=== PATIENT | male | born 1955 | race Caucasian/White ===

== ENCOUNTER → 2020-07-16 08:43 | Outpatient (BNVA) | payer MEDICARE, SELFPAY | PROVIDERS: PCP Family Medicine; Referring Provider Family Medicine; Visit Provider Family Medicine | DX: I48.19 Other persistent atrial fibrillation (principal); Z51.81 Encounter for therapeutic drug level monitoring; Z79.01 Long term (current) use of anticoagulants | CPT/HCPCS: 85610; 99211 ==

== ENCOUNTER 2020-07-16 19:19 | Outpatient (REF) | payer MEDICARE, SELFPAY | END 2020-07-16 19:20 | disposition home or self-care (01) | LOC: HO.LNP 19:19 | PROVIDERS: Visit Provider Family Medicine | DX: Z79.01 Long term (current) use of anticoagulants (principal) ==

== ENCOUNTER → 2020-07-30 10:40 | Outpatient (BNVA) | payer MEDICARE, SELFPAY | PROVIDERS: PCP Family Medicine; Visit Provider Internal Medicine | DX: I48.19 Other persistent atrial fibrillation (principal); Z51.81 Encounter for therapeutic drug level monitoring; Z79.01 Long term (current) use of anticoagulants | CPT/HCPCS: 85610 ==

== ENCOUNTER → 2020-08-20 10:17 | Outpatient (BNVA) | payer MEDICARE, SELFPAY | PROVIDERS: PCP Family Medicine; Referring Provider Family Medicine; Visit Provider Internal Medicine | DX: I48.19 Other persistent atrial fibrillation (principal); Z51.81 Encounter for therapeutic drug level monitoring; Z79.01 Long term (current) use of anticoagulants | CPT/HCPCS: 85610; 99211 ==

== ENCOUNTER → 2020-08-25 08:07 | Outpatient (BNVA) | payer MEDICARE, SELFPAY | PROVIDERS: PCP Family Medicine; Visit Provider Internal Medicine | DX: I48.19 Other persistent atrial fibrillation (principal); Z51.81 Encounter for therapeutic drug level monitoring; Z79.01 Long term (current) use of anticoagulants | CPT/HCPCS: 85610; 99211 ==

== ENCOUNTER → 2020-08-31 10:25 | Outpatient (BNVA) | payer MEDICARE, SELFPAY | PROVIDERS: PCP Family Medicine; Visit Provider Internal Medicine | DX: I48.19 Other persistent atrial fibrillation (principal); Z51.81 Encounter for therapeutic drug level monitoring; Z79.01 Long term (current) use of anticoagulants | CPT/HCPCS: 85610; 99211 ==

== ENCOUNTER → 2020-09-08 08:53 | Outpatient (BNVA) | payer MEDICARE, SELFPAY | PROVIDERS: PCP Family Medicine; Visit Provider Internal Medicine | DX: I48.19 Other persistent atrial fibrillation (principal); Z51.81 Encounter for therapeutic drug level monitoring; Z79.01 Long term (current) use of anticoagulants | CPT/HCPCS: 85610; 99211 ==

== ENCOUNTER → 2020-09-23 10:01 | Outpatient (BNVA) | payer MEDICARE, SELFPAY | PROVIDERS: PCP Family Medicine; Referring Provider Family Medicine; Visit Provider Internal Medicine Endocrinology, Diabetes & Metabolism | DX: E29.1 Testicular hypofunction (principal); E66.01 Morbid (severe) obesity due to excess calories | CPT/HCPCS: 99212 ==

== ENCOUNTER 2020-09-25 07:58 | Outpatient (REF) | payer MEDICARE, SELFPAY ==
[2020-09-25 08:49] LABS: Hematocrit 43.4 % (42-52); Hemoglobin 14.7 g/dl (14.0-18.0)
[2020-09-25 09:10] LABS: Cholesterol 101 mg/dL; HDL Cholesterol 37 mg/dL; LDL Cholesterol Calculated 51 mg/dl; Triglycerides 65 mg/dL
[2020-09-25 09:33] LABS: Prostate Specific Antigen 0.95 ng/mL (<0.05-4.0)
[2020-09-26 10:27] LABS: Follicle Stimulating Hormone 13.8 mIU/mL (1.6-8.0); Lutenizing Hormone 13.1 mIU/mL (1.6-15.2)
[2020-09-27 17:26] LABS: Sex Hormone Binding Globulin 18 nmol/L (22-77)
[2020-09-30 10:57] LABS: Testosterone, Free 30.1 pg/mL (35.0-155.0); Testosterone, Total 127 ng/dL (250-1100)
[2020-09-30 20:43] LABS: Testosterone-Albumin 3.9 g/dL (3.6-5.1); Testosterone-Bioavailable 43.9 ng/dL (110.0-575.0); Testosterone-Free 24.4 pg/mL (46.0-224.0); Testosterone-SHBG 18 nmol/L (22-77); Testosterone-Total 125 ng/dL (250-1100)
[2020-10-01 23:32] LABS: Estradiol, Ultrasensitive 12 pg/mL
== END 2020-09-25 07:59 | disposition home or self-care (01) ==
LOC: HO.LAB 07:58
PROVIDERS: PCP Family Medicine; Visit Provider Internal Medicine Endocrinology, Diabetes & Metabolism
DX: E29.1 Testicular hypofunction (principal); E66.01 Morbid (severe) obesity due to excess calories
CPT/HCPCS: 36415; 80061; 82670; 83001; 83002; 84153; 84270; 84402; 84403; 85014; 85018

== ENCOUNTER → 2020-09-29 10:22 | Outpatient (BNVA) | payer MEDICARE, SELFPAY | PROVIDERS: PCP Family Medicine; Visit Provider Internal Medicine | DX: I48.19 Other persistent atrial fibrillation (principal); Z51.81 Encounter for therapeutic drug level monitoring; Z79.01 Long term (current) use of anticoagulants | CPT/HCPCS: 85610; 99211 ==

== ENCOUNTER 2020-10-27 08:49 | Outpatient (REF) | payer MEDICARE, SELFPAY ==
[2020-10-27 10:09] LABS: Hemoglobin 14.9 g/dl (14.0-18.0); Mean Corpuscular Hemoglobin 31.2 pg (27.0-33.0); PLT CLUMP 1; Red Blood Count 4.78 X10*6/uL (4.60-5.80); Red Cell Distribution Width 13.5 % (11.0-16.0)
[2020-10-27 10:11] LABS: Estimated Average Glucose 108 mg/dL; Hematocrit 45.7 % (42-52); Hemoglobin A1c % 5.4 %; Mean Corpuscular HGB Conc 32.6 g/dl (31.0-36.0); Mean Corpuscular Volume 95.6 fL (80-98); Mean Platelet Volume 10.8 fL (9.4-12.4); Platelet Count 131 X10*3/uL (160-400); White Blood Count 5.3 X10*3/uL (4.8-10.8)
[2020-10-27 10:50] LABS: Alanine Aminotransferase 24 U/L (0-40); Alkaline Phosphatase 75 U/L (39-117); Anion Gap 13 (12-20); Aspartate Amino Transferase 19 U/L (5-37); Bilirubin Direct 0.3 mg/dL (0.0-0.5); Bilirubin Total 0.6 mg/dL (0.0-1.0); Blood Urea Nitrogen 21 mg/dL (9-16); Calcium 8.9 mg/dL (8.4-10.2); Carbon Dioxide 28 mmol/L (22-29); Chloride 108 mmol/L (96-108); Cholesterol 106 mg/dL; Estimated Glomerular Filt Rate > 60; Glucose Random 107 mg/dL (60-115); HDL Cholesterol 35 mg/dL; LDL Cholesterol Calculated 52 mg/dl; Magnesium 2.1 mg/dL (1.6-2.6); Potassium 4.8 mmol/l (3.3-5.1); Sodium 144 mmol/L (135-145); Total Protein 6.6 g/dL (6.5-8.0); Triglycerides 97 mg/dL
[2020-10-27 11:14] LABS: Thyroid Stimulating Hormone 1.25 uIU/mL (0.32-4.0)
== END 2020-10-27 08:50 | disposition home or self-care (01) ==
LOC: HO.LAB 08:49
PROVIDERS: PCP Family Medicine; Visit Provider Internal Medicine Cardiovascular Disease
DX: I10 Essential (primary) hypertension (principal); I25.10 Atherosclerotic heart disease of native coronary artery without angina pectoris; E78.2 Mixed hyperlipidemia; E66.9 Obesity, unspecified
CPT/HCPCS: 36415; 80048; 80061; 80076; 83036; 83735; 84443; 85027; 85610; 99211

== ENCOUNTER → 2020-11-08 09:55 | Outpatient (BNVA) | payer MEDICARE, SELFPAY | PROVIDERS: PCP Family Medicine; Visit Provider Internal Medicine | DX: E66.01 Morbid (severe) obesity due to excess calories (principal); G47.33 Obstructive sleep apnea (adult) (pediatric) | CPT/HCPCS: 99212 ==

== ENCOUNTER 2020-11-20 07:12 | Outpatient (REF) | payer MEDICARE, SELFPAY ==
[2020-11-20 08:48] LABS: Hematocrit 45.7 % (42-52); Hemoglobin 15.1 g/dl (14.0-18.0)
[2020-11-20 09:22] LABS: PSA,Total (Free>4and<10) 1.57 ng/mL (0.00-4.00)
[2020-11-20 09:37] LABS: Cholesterol 97 mg/dL; HDL Cholesterol 29 mg/dL; LDL Cholesterol Calculated 55 mg/dl; Triglycerides 69 mg/dL
[2020-11-22 18:12] LABS: Sex Hormone Binding Globulin 14 nmol/L (22-77)
[2020-11-25 05:18] LABS: Testosterone-Bioavailable 235.1 ng/dL (110.0-575.0); Testosterone-Free 127.8 pg/mL (46.0-224.0); Testosterone-SHBG 11 nmol/L (22-77); Testosterone-Total 430 ng/dL (250-1100)
[2020-11-28 15:16] LABS: Testosterone, Free 121.5 pg/mL (35.0-155.0); Testosterone, Total 482 ng/dL (250-1100)
== END 2020-11-20 07:13 | disposition home or self-care (01) ==
LOC: HO.LAB 07:12
PROVIDERS: PCP Family Medicine; Visit Provider Internal Medicine Endocrinology, Diabetes & Metabolism
DX: E29.1 Testicular hypofunction (principal); Z12.5 Encounter for screening for malignant neoplasm of prostate
CPT/HCPCS: 36415; 80061; 84153; 84270; 84402; 84403; 85014; 85018

== ENCOUNTER → 2020-11-24 10:06 | Outpatient (BNVA) | payer MEDICARE, SELFPAY | PROVIDERS: PCP Family Medicine; Visit Provider Internal Medicine | DX: I48.19 Other persistent atrial fibrillation (principal); Z51.81 Encounter for therapeutic drug level monitoring; Z79.01 Long term (current) use of anticoagulants | CPT/HCPCS: 85610; 99211 ==

== ENCOUNTER → 2020-12-03 14:21 | Outpatient (BNVA) | payer MEDICARE, SELFPAY | PROVIDERS: PCP Family Medicine; Visit Provider Physician Assistant | DX: E66.01 Morbid (severe) obesity due to excess calories (principal); Z68.44 Body mass index [BMI] 60.0-69.9, adult | CPT/HCPCS: 99212 ==

== ENCOUNTER → 2020-12-22 10:02 | Outpatient (BNVA) | payer MEDICARE, SELFPAY | PROVIDERS: PCP Family Medicine; Visit Provider Internal Medicine | DX: I48.19 Other persistent atrial fibrillation (principal); Z51.81 Encounter for therapeutic drug level monitoring; Z79.01 Long term (current) use of anticoagulants | CPT/HCPCS: 85610; 99211 ==

== ENCOUNTER 2021-01-14 08:05 | Outpatient (REF) | payer MEDICARE, SELFPAY ==
[2021-01-14 11:02] LABS: Hematocrit 47.1 % (42-52)
[2021-01-14 11:04] LABS: Hemoglobin 15.4 g/dl (14.0-18.0)
[2021-01-14 11:26] LABS: TSH reflex Free T4 1.51 uIU/mL (0.32-4.0)
[2021-01-14 11:31] LABS: Alanine Aminotransferase 25 U/L (0-40); Albumin Level 4.1 g/dL (3.5-5.0); Alkaline Phosphatase 70 U/L (39-117); Anion Gap 14 (12-20); Aspartate Amino Transferase 20 U/L (5-37); Bilirubin Total 0.4 mg/dL (0.0-1.0); Blood Urea Nitrogen 21 mg/dL (9-16); Carbon Dioxide 26 mmol/L (22-29); Chloride 107 mmol/L (96-108); Cholesterol 108 mg/dL; Estimated Glomerular Filt Rate > 60; Glucose Fasting 96 mg/dL (60-99); HDL Cholesterol 35 mg/dL; LDL Cholesterol Calculated 55 mg/dl; Potassium 4.9 mmol/L (3.3-5.1); Sodium 142 mmol/L (135-145); Total Protein 6.9 g/dL (6.5-8.0); Triglycerides 91 mg/dL
[2021-01-14 11:58] LABS: Creatinine Urine 164.19 mg/dL; Microalbum/Creatinine Ratio Ur 147.3 ug/mg cr
[2021-01-15 05:32] LABS: Sex Hormone Binding Globulin 18 nmol/L (22-77)
[2021-01-20 10:12] LABS: Testosterone-Albumin 4.2 g/dL (3.6-5.1); Testosterone-Bioavailable 109.9 ng/dL (110.0-575.0); Testosterone-Free 57.1 pg/mL (46.0-224.0); Testosterone-SHBG 19 nmol/L (22-77); Testosterone-Total 291 ng/dL (250-1100)
[2021-01-20 15:27] LABS: Testosterone, Free 56.4 pg/mL (35.0-155.0); Testosterone, Total 294 ng/dL (250-1100)
== END 2021-01-14 08:06 | disposition home or self-care (01) ==
LOC: HO.WFDLDS 08:05
PROVIDERS: Internal Medicine Endocrinology, Diabetes & Metabolism; Visit Provider Family Medicine
DX: Z00.00 Encounter for general adult medical examination without abnormal findings (principal); E29.1 Testicular hypofunction; I10 Essential (primary) hypertension
CPT/HCPCS: 36415; 80053; 80061; 82043; 84270; 84402; 84403; 84443; 85014; 85018

== ENCOUNTER → 2021-01-19 09:58 | Outpatient (BNVA) | payer MEDICARE, SELFPAY | PROVIDERS: PCP Family Medicine; Visit Provider Internal Medicine | DX: I48.19 Other persistent atrial fibrillation (principal); Z51.81 Encounter for therapeutic drug level monitoring; Z79.01 Long term (current) use of anticoagulants | CPT/HCPCS: 85610; 99211 ==

== ENCOUNTER → 2021-01-27 10:01 | Outpatient (BNVA) | payer MEDICARE, SELFPAY | PROVIDERS: PCP Family Medicine; Visit Provider Internal Medicine Endocrinology, Diabetes & Metabolism | DX: E29.1 Testicular hypofunction (principal); E66.01 Morbid (severe) obesity due to excess calories | CPT/HCPCS: 99212 ==

== ENCOUNTER → 2021-02-16 10:23 | Outpatient (BNVA) | payer MEDICARE, SELFPAY | PROVIDERS: PCP Family Medicine; Visit Provider Internal Medicine | DX: I48.19 Other persistent atrial fibrillation (principal); Z51.81 Encounter for therapeutic drug level monitoring; Z79.01 Long term (current) use of anticoagulants | CPT/HCPCS: 85610; 99211 ==

== ENCOUNTER → 2021-02-24 10:10 | Outpatient (BNVA) | payer MEDICARE, SELFPAY | PROVIDERS: PCP Family Medicine; Visit Provider Internal Medicine | DX: I48.19 Other persistent atrial fibrillation (principal); Z51.81 Encounter for therapeutic drug level monitoring; Z79.01 Long term (current) use of anticoagulants | CPT/HCPCS: 85610; 99211 ==

== ENCOUNTER → 2021-03-23 10:10 | Outpatient (BNVA) | payer MEDICARE, SELFPAY | PROVIDERS: PCP Family Medicine; Visit Provider Internal Medicine | DX: I48.19 Other persistent atrial fibrillation (principal); Z51.81 Encounter for therapeutic drug level monitoring; Z79.01 Long term (current) use of anticoagulants | CPT/HCPCS: 85610; 99211 ==

== ENCOUNTER 2021-04-01 07:56 | Outpatient (REF) | payer MEDICARE, SELFPAY ==
[2021-04-04 21:37] LABS: Sex Hormone Binding Globulin 12 nmol/L (22-77)
[2021-04-06 17:16] LABS: Testosterone, Free 143.3 pg/mL (35.0-155.0); Testosterone, Total 578 ng/dL (250-1100)
[2021-04-12 10:52] LABS: Testosterone-Albumin 4.1 g/dL (3.6-5.1); Testosterone-Bioavailable 312.7 ng/dL (110.0-575.0); Testosterone-Free 166.1 pg/mL (46.0-224.0); Testosterone-SHBG 16 nmol/L (22-77); Testosterone-Total 650 ng/dL (250-1100)
== END 2021-04-01 07:57 | disposition home or self-care (01) ==
LOC: HO.WFDLDS 07:56
PROVIDERS: Visit Provider Internal Medicine Endocrinology, Diabetes & Metabolism
DX: E29.1 Testicular hypofunction (principal)
CPT/HCPCS: 36415; 84270; 84402; 84403

== ENCOUNTER → 2021-04-11 07:34 | Outpatient (BNVA) | payer MEDICARE, SELFPAY | PROVIDERS: PCP Family Medicine; Visit Provider Physician Assistant | DX: Z12.11 Encounter for screening for malignant neoplasm of colon (principal); Z79.01 Long term (current) use of anticoagulants | CPT/HCPCS: 99202 ==

== ENCOUNTER → 2021-04-20 08:06 | Outpatient (BNVA) | payer MEDICARE, SELFPAY | PROVIDERS: PCP Family Medicine; Visit Provider Internal Medicine | DX: I48.19 Other persistent atrial fibrillation (principal); Z51.81 Encounter for therapeutic drug level monitoring; Z79.01 Long term (current) use of anticoagulants | CPT/HCPCS: 85610; 99211 ==

== ENCOUNTER → 2021-05-02 11:20 | Outpatient (BNVA) | payer MEDICARE, SELFPAY | PROVIDERS: Visit Provider Internal Medicine Endocrinology, Diabetes & Metabolism | DX: E29.1 Testicular hypofunction (principal); E66.01 Morbid (severe) obesity due to excess calories; Z68.44 Body mass index [BMI] 60.0-69.9, adult | CPT/HCPCS: 99212 ==

== ENCOUNTER → 2021-05-04 08:16 | Outpatient (BNVA) | payer MEDICARE, SELFPAY | PROVIDERS: PCP Family Medicine; Visit Provider Internal Medicine | DX: I48.0 Paroxysmal atrial fibrillation (principal); Z51.81 Encounter for therapeutic drug level monitoring; Z79.01 Long term (current) use of anticoagulants | CPT/HCPCS: 85610; 99211 ==

== ENCOUNTER → 2021-05-10 09:07 | Outpatient (BNVA) | payer MEDICARE, SELFPAY | PROVIDERS: PCP Family Medicine; Visit Provider Internal Medicine | DX: G47.33 Obstructive sleep apnea (adult) (pediatric) (principal); E66.01 Morbid (severe) obesity due to excess calories; Z68.44 Body mass index [BMI] 60.0-69.9, adult | CPT/HCPCS: 99212 ==

== ENCOUNTER → 2021-05-23 13:45 | Outpatient (BNVA) | payer MEDICARE, SELFPAY | PROVIDERS: PCP Family Medicine | DX: S39.013A Strain of muscle, fascia and tendon of pelvis, initial encounter (principal) | CPT/HCPCS: 99202 ==

== ENCOUNTER → 2021-05-25 08:15 | Outpatient (BNVA) | payer MEDICARE, SELFPAY | PROVIDERS: PCP Family Medicine; Visit Provider Internal Medicine | DX: I48.0 Paroxysmal atrial fibrillation (principal); Z51.81 Encounter for therapeutic drug level monitoring; Z79.01 Long term (current) use of anticoagulants | CPT/HCPCS: 85610; 99211 ==

== ENCOUNTER → 2021-06-14 10:05 | Outpatient (BNVA) | payer MEDICARE, SELFPAY | PROVIDERS: PCP Family Medicine; Visit Provider Physician Assistant | CPT/HCPCS: Q3014 ==

== ENCOUNTER 2021-06-22 10:06 | Outpatient (REF) | payer MEDICARE, SELFPAY ==
[2021-06-22 10:57] LABS: INTERNATIONAL NORM RATIO 4.8 (0.9-1.1)
== END 2021-06-22 10:07 | disposition home or self-care (01) ==
LOC: HO.LAB 10:06
PROVIDERS: PCP Family Medicine; Visit Provider Internal Medicine
DX: I48.0 Paroxysmal atrial fibrillation (principal); Z51.81 Encounter for therapeutic drug level monitoring; Z79.01 Long term (current) use of anticoagulants
CPT/HCPCS: 36415; 85610; 99212

== ENCOUNTER → 2021-06-27 09:13 | Outpatient (BNVA) | payer MEDICARE, SELFPAY | PROVIDERS: PCP Family Medicine; Visit Provider Internal Medicine | DX: I48.0 Paroxysmal atrial fibrillation (principal); Z51.81 Encounter for therapeutic drug level monitoring; Z79.01 Long term (current) use of anticoagulants | CPT/HCPCS: 85610; 99211 ==

== ENCOUNTER → 2021-06-30 09:08 | Outpatient (BNVA) | payer MEDICARE, SELFPAY | PROVIDERS: PCP Family Medicine; Visit Provider Internal Medicine | DX: I48.0 Paroxysmal atrial fibrillation (principal); Z51.81 Encounter for therapeutic drug level monitoring; Z79.01 Long term (current) use of anticoagulants | CPT/HCPCS: 85610; 99211 ==

== ENCOUNTER → 2021-07-07 09:18 | Outpatient (BNVA) | payer MEDICARE, SELFPAY | PROVIDERS: PCP Family Medicine; Visit Provider Internal Medicine | DX: I48.0 Paroxysmal atrial fibrillation (principal); Z51.81 Encounter for therapeutic drug level monitoring; Z79.01 Long term (current) use of anticoagulants | CPT/HCPCS: 85610; 99211 ==

== ENCOUNTER → 2021-07-22 10:16 | Outpatient (BNVA) | payer MEDICARE, SELFPAY | PROVIDERS: PCP Family Medicine; Visit Provider Internal Medicine | DX: I48.0 Paroxysmal atrial fibrillation (principal); Z51.81 Encounter for therapeutic drug level monitoring; Z79.01 Long term (current) use of anticoagulants | CPT/HCPCS: 85610; 99211 ==

== ENCOUNTER → 2021-07-27 10:13 | Outpatient (BNVA) | payer MEDICARE, SELFPAY | PROVIDERS: PCP Family Medicine; Visit Provider Internal Medicine | DX: I48.0 Paroxysmal atrial fibrillation (principal); Z51.81 Encounter for therapeutic drug level monitoring; Z79.01 Long term (current) use of anticoagulants | CPT/HCPCS: 85610; 99211 ==

== ENCOUNTER → 2021-08-03 10:46 | Outpatient (BNVA) | payer MEDICARE, SELFPAY | PROVIDERS: PCP Family Medicine; Visit Provider Internal Medicine | DX: I48.0 Paroxysmal atrial fibrillation (principal); Z51.81 Encounter for therapeutic drug level monitoring; Z79.01 Long term (current) use of anticoagulants | CPT/HCPCS: 85610; 99211 ==

== ENCOUNTER → 2021-08-10 10:29 | Outpatient (BNVA) | payer MEDICARE, SELFPAY | PROVIDERS: PCP Family Medicine; Visit Provider Internal Medicine | DX: I48.0 Paroxysmal atrial fibrillation (principal); Z51.81 Encounter for therapeutic drug level monitoring; Z79.01 Long term (current) use of anticoagulants | CPT/HCPCS: 85610; 99211 ==

== ENCOUNTER → 2021-08-22 10:05 | Outpatient (BNVA) | payer MEDICARE, SELFPAY | PROVIDERS: PCP Family Medicine; Visit Provider Internal Medicine | DX: I48.0 Paroxysmal atrial fibrillation (principal); Z51.81 Encounter for therapeutic drug level monitoring; Z79.01 Long term (current) use of anticoagulants | CPT/HCPCS: 85610; 99211 ==

== ENCOUNTER → 2021-08-29 10:20 | Outpatient (BNVA) | payer MEDICARE, SELFPAY | PROVIDERS: PCP Family Medicine; Visit Provider Internal Medicine | DX: I48.0 Paroxysmal atrial fibrillation (principal); Z51.81 Encounter for therapeutic drug level monitoring; Z79.01 Long term (current) use of anticoagulants | CPT/HCPCS: 85610; 99211 ==

== ENCOUNTER → 2021-09-05 10:25 | Outpatient (BNVA) | payer MEDICARE, SELFPAY | PROVIDERS: PCP Family Medicine; Visit Provider Internal Medicine | DX: I48.0 Paroxysmal atrial fibrillation (principal); Z51.81 Encounter for therapeutic drug level monitoring; Z79.01 Long term (current) use of anticoagulants | CPT/HCPCS: 85610; 99211 ==

== ENCOUNTER → 2021-09-12 10:49 | Outpatient (BNVA) | payer MEDICARE, SELFPAY | PROVIDERS: PCP Family Medicine; Visit Provider Internal Medicine | DX: I48.0 Paroxysmal atrial fibrillation (principal); Z51.81 Encounter for therapeutic drug level monitoring; Z79.01 Long term (current) use of anticoagulants | CPT/HCPCS: 85610; 99211 ==

== ENCOUNTER 2021-09-19 10:56 | Outpatient (REF) | payer MEDICARE, SELFPAY ==
--- NOTE | ~2021-09-19 | US_ITS ---
EXAMINATION: US EXTREMITY NONVASCULAR CLINICAL INFORMATION: Superficial foreign body left thigh. Question broken insulin needle. COMPARISON: None TECHNIQUE: Grayscale and color imaging of the left upper to mid lateral thigh using a linear transducer. FINDINGS: There is a 1.7 cm linear echogenic density in the soft tissues questionable for a foreign body. This is 1 cm deep from the skin surface. This could be confirmed with x-ray. US/US extremity nonvascular IMPRESSION: Question 1 cm in length linear foreign body. Confirmation with x-ray recommended.
== END 2021-09-19 10:57 | disposition home or self-care (01) ==
LOC: HO.HMGCX 10:56
PROVIDERS: Visit Provider Family Medicine
DX: S70.35 Superficial foreign body of thigh (principal)
CPT/HCPCS: 76882

== ENCOUNTER 2021-09-20 09:52 | Outpatient (RCR) | payer MEDICARE, SELFPAY | END 2021-10-12 13:23 | disposition home or self-care (01) | LOC: HO.WCC 09:52 | PROVIDERS: PCP Family Medicine; Visit Provider Physician Assistant | DX: S81.812A Laceration without foreign body, left lower leg, initial encounter (principal); I87.2 Venous insufficiency (chronic) (peripheral); R60.0 Localized edema; E66.01 Morbid (severe) obesity due to excess calories; I48.91 Unspecified atrial fibrillation; I25.10 Atherosclerotic heart disease of native coronary artery without angina pectoris; I10 Essential (primary) hypertension; I25.2 Old myocardial infarction; Z79.01 Long term (current) use of anticoagulants; Z68.44 Body mass index [BMI] 60.0-69.9, adult | CPT/HCPCS: 11042; 97597; 99212 ==

== ENCOUNTER → 2021-09-23 10:28 | Outpatient (BNVA) | payer MEDICARE, SELFPAY | PROVIDERS: PCP Family Medicine; Visit Provider Internal Medicine | DX: I48.0 Paroxysmal atrial fibrillation (principal); Z51.81 Encounter for therapeutic drug level monitoring; Z79.01 Long term (current) use of anticoagulants | CPT/HCPCS: 85610; 99211 ==

== ENCOUNTER → 2021-10-06 08:24 | Outpatient (BNVA) | payer MEDICARE, SELFPAY | PROVIDERS: PCP Family Medicine; Visit Provider Internal Medicine | DX: I48.0 Paroxysmal atrial fibrillation (principal); Z51.81 Encounter for therapeutic drug level monitoring; Z79.01 Long term (current) use of anticoagulants | CPT/HCPCS: 85610; 99211 ==

== ENCOUNTER → 2021-10-12 07:26 | Outpatient (REF) | payer MEDICARE, SELFPAY ==
--- NOTE | ~2021-10-12 | NM_ITS ---
Myocardial perfusion study Indication: Atrial fibrillation with reduced exercise tolerance evaluate for myocardial ischemia Technique: The patient was brought in for a Lexiscan perfusion study on 10/12/2021. Patient performed low-level exercise and was injected 0.4 mg of Lexiscan intravenously. Within a minute of injection, 45 mCi of sestamibi was given intravenously. Images were obtained using the SPECT gamma camera interlaced with the gating device. Images were obtained in supine position. Resting perfusion study was performed on 10/13/2021. Patient was administered 45 mCi of sestamibi intravenously at rest. Images were then obtained in supine position. Images obtained with and without CT attenuation. Total DLP 212mGy-cm. Images were processed with the software and compared side to side in short axis, horizontal long axis and vertical long axis views. Findings: The stress perfusion study showed non attenuated images are suboptimal due to patient's body habitus which shows moderately reduced uptake in the septum, severely reduced uptake in the basal inferior and mildly to moderately reduced uptake in the basal inferior segments as well as mildly reduced uptake in the inferolateral wall of the LV myocardium. Attenuation corrected images show normal uptake of radiotracer in all segments of LV myocardium. The gated study shows normal LV systolic function with calculated LVEF of 41%. LV cavity is normal in size. The gated study shows normal systolic wall thickening and contraction of segments. Resting study shows attenuated corrected images show mildly reduced uptake in the apex of the LV myocardium. Non attenuated images show severely reduced uptake in the inferior, mildly reduced uptake in apical as well as mildly reduced uptake in the inferolateral and septal wall of the LV myocardium.. Gating at rest reveals normal cyst colic wall motion with ejection fraction at 45%. The findings are consistent with no clear reversible defect suggestive of ischemia.. NM/NM domenic perf SPECT rest & str Impression: 1. Myocardial perfusion imaging study shows likely normal myocardial perfusion with no clear ischemia 2. Gated LVEF is 41%, with visually appears to be within normal limits. Correlate with echocardiogram 3. Transient ischemic dilatation not present EKG is nondiagnostic for ischemia
--- NOTE | 2021-10-12 07:33 | CA_ITS ---
Acquisition Time: 2021-10-12 07:54:51 Total Exercise Time: 00:02:00 Test Indications: ABN EKG Medications: SEE CHART Protocol: LEXISCAN Max HR: 166 BPM 107% of Pred: 154 BPM Max BP: 136/070 mmHG Max Work Load: 1.0 METS Pharmacological stress test with Lexiscan injection, while sitting and kicking his legs, without anginal symptoms, with isolated PVC and 2 ventricular cuplets, with normotensive response to injection, with nondiagnostic EKG for ischemia. In recovery he had elevated afib rates that were treated with Aminophylline 75mg IVP to reverse Lexiscan with improvement in heart rate. Nuclear images pending. Test reviewed with Dr Yarbrough. Referred By: Sin Mcdonnell Overread By: AUDI AQUINO
== END ==
LOC: HO.CARD 07:26
PROVIDERS: PCP Family Medicine; Visit Provider Family Medicine
DX: I48.0 Paroxysmal atrial fibrillation (principal)
CPT/HCPCS: 78452; 93017; A9500; J0280; J2785

== ENCOUNTER 2021-10-20 10:20 | Outpatient (REF) | payer MEDICARE, SELFPAY ==
--- NOTE | ~2021-10-20 | XR_ITS ---
EXAMINATION: XR FEMUR, LEFT CLINICAL INFORMATION: Superficial foreign body left thigh. COMPARISON: None TECHNIQUE: AP and lateral views of the left femur were obtained. FINDINGS: The left femur is intact with no bony abnormality. No soft tissue abnormality or radiopaque foreign body is seen along the left thigh. Mild loss of patellofemoral joint space with superior patellar spurring is noted. XR/XR femur LT 2V IMPRESSION: Unremarkable left femur exam. No radiopaque foreign body seen in the left thigh.
== END 2021-10-20 10:21 | disposition home or self-care (01) ==
LOC: HO.XRAY 10:20
PROVIDERS: PCP Family Medicine; Referring Provider Family Medicine; Visit Provider Surgery
DX: I48.0 Paroxysmal atrial fibrillation (principal); S70.35 Superficial foreign body of thigh; Z51.81 Encounter for therapeutic drug level monitoring; Z79.01 Long term (current) use of anticoagulants
CPT/HCPCS: 73552; 85610; 99202; 99211

== ENCOUNTER → 2021-10-31 08:25 | Outpatient (BNVA) | payer MEDICARE, SELFPAY | PROVIDERS: PCP Family Medicine; Visit Provider Internal Medicine | DX: I48.0 Paroxysmal atrial fibrillation (principal); Z51.81 Encounter for therapeutic drug level monitoring; Z79.01 Long term (current) use of anticoagulants | CPT/HCPCS: 85610; 99211 ==

== ENCOUNTER → 2021-11-08 10:06 | Outpatient (BNVA) | payer MEDICARE, SELFPAY | PROVIDERS: PCP Family Medicine; Visit Provider Internal Medicine | DX: I48.0 Paroxysmal atrial fibrillation (principal); G47.33 Obstructive sleep apnea (adult) (pediatric); J42 Unspecified chronic bronchitis; E66.01 Morbid (severe) obesity due to excess calories; Z51.81 Encounter for therapeutic drug level monitoring; Z79.01 Long term (current) use of anticoagulants; Z79.899 Other long term (current) drug therapy | CPT/HCPCS: 85610; 99211; 99212 ==

== ENCOUNTER → 2021-11-22 10:18 | Outpatient (BNVA) | payer MEDICARE, SELFPAY | PROVIDERS: PCP Family Medicine; Visit Provider Internal Medicine | DX: I48.0 Paroxysmal atrial fibrillation (principal); Z51.81 Encounter for therapeutic drug level monitoring; Z79.01 Long term (current) use of anticoagulants | CPT/HCPCS: 85610; 99211 ==

== ENCOUNTER → 2021-12-06 10:30 | Outpatient (BNVA) | payer MEDICARE, SELFPAY | PROVIDERS: PCP Family Medicine; Referring Provider Family Medicine; Visit Provider Physician Assistant | DX: R19.7 Diarrhea, unspecified (principal); K59.00 Constipation, unspecified; K58.9 Irritable bowel syndrome, unspecified; E66.01 Morbid (severe) obesity due to excess calories; G47.33 Obstructive sleep apnea (adult) (pediatric); Z68.44 Body mass index [BMI] 60.0-69.9, adult; Z98.84 Bariatric surgery status; Z95.5 Presence of coronary angioplasty implant and graft; Z95.0 Presence of cardiac pacemaker; Z79.82 Long term (current) use of aspirin; Z79.01 Long term (current) use of anticoagulants; Z99.89 Dependence on other enabling machines and devices; Z79.899 Other long term (current) drug therapy | CPT/HCPCS: 99212 ==

== ENCOUNTER 2021-12-08 | Outpatient (REF) | payer MEDICARE, SELFPAY | END 2021-12-08 00:01 | disposition home or self-care (01) | LOC: CF | PROVIDERS: Visit Provider Internal Medicine | DX: Z79.01 Long term (current) use of anticoagulants (principal) | CPT/HCPCS: 85610; 99211 ==

== ENCOUNTER → 2021-12-08 08:13 | Outpatient (BNVA) | payer SELFPAY | PROVIDERS: PCP Family Medicine; Visit Provider Internal Medicine | DX: Z02.79 Encounter for issue of other medical certificate (principal) | CPT/HCPCS: 85610; 99211 ==

== ENCOUNTER → 2021-12-14 10:05 | Outpatient (BNVA) | payer MEDICARE, SELFPAY | PROVIDERS: PCP Family Medicine; Visit Provider Internal Medicine | DX: I48.0 Paroxysmal atrial fibrillation (principal); Z51.81 Encounter for therapeutic drug level monitoring; Z79.01 Long term (current) use of anticoagulants | CPT/HCPCS: 85610; 99211 ==

== ENCOUNTER → 2021-12-21 10:50 | Outpatient (BNVA) | payer MEDICARE, SELFPAY | PROVIDERS: PCP Family Medicine; Visit Provider Internal Medicine | DX: I48.0 Paroxysmal atrial fibrillation (principal); Z51.81 Encounter for therapeutic drug level monitoring; Z79.01 Long term (current) use of anticoagulants | CPT/HCPCS: 85610; 99211 ==

== ENCOUNTER → 2021-12-28 10:04 | Outpatient (BNVA) | payer MEDICARE, SELFPAY | PROVIDERS: PCP Family Medicine; Visit Provider Internal Medicine | DX: I48.0 Paroxysmal atrial fibrillation (principal); Z79.01 Long term (current) use of anticoagulants; Z51.81 Encounter for therapeutic drug level monitoring | CPT/HCPCS: 85610; 99211 ==

== ENCOUNTER → 2022-01-11 10:16 | Outpatient (BNVA) | payer MEDICARE, SELFPAY | PROVIDERS: PCP Family Medicine; Visit Provider Internal Medicine | DX: I48.0 Paroxysmal atrial fibrillation (principal); Z51.81 Encounter for therapeutic drug level monitoring; Z79.01 Long term (current) use of anticoagulants | CPT/HCPCS: 85610; 99211 ==

== ENCOUNTER 2022-01-17 10:09 | Outpatient (REF) | payer MEDICARE, SELFPAY ==
--- NOTE | ~2022-01-17 | US_ITS ---
EXAMINATION: US ABDOMEN LIMITED CLINICAL INFORMATION: Periumbilical pain. COMPARISON: Ultrasound abdomen complete with elastography 08/25/2019 and 04/08/2018. TECHNIQUE: Real-time imaging of the periumbilical area. FINDINGS: The periumbilical area was scanned and no abnormality was seen. A hernia could not be identified. An abnormal mass or fluid collection was not seen. US/US abdomen limited IMPRESSION: No abnormality is detected.
== END 2022-01-17 10:10 | disposition home or self-care (01) ==
LOC: HO.US 10:09
PROVIDERS: PCP Family Medicine; Visit Provider Family Medicine
DX: R10.33 Periumbilical pain (principal); K46.9 Unspecified abdominal hernia without obstruction or gangrene
CPT/HCPCS: 76705

== ENCOUNTER → 2022-02-01 07:58 | Outpatient (BNVA) | payer MEDICARE, SELFPAY | PROVIDERS: PCP Family Medicine; Visit Provider Internal Medicine | DX: I48.0 Paroxysmal atrial fibrillation (principal); Z79.01 Long term (current) use of anticoagulants; Z51.81 Encounter for therapeutic drug level monitoring | CPT/HCPCS: 85610; 99211 ==

== ENCOUNTER → 2022-02-03 07:45 | Outpatient (BNVA) | payer MEDICARE, SELFPAY | PROVIDERS: PCP Family Medicine; Visit Provider Internal Medicine Endocrinology, Diabetes & Metabolism | DX: E29.1 Testicular hypofunction (principal) | CPT/HCPCS: 99212 ==

== ENCOUNTER → 2022-02-22 09:58 | Outpatient (BNVA) | payer MEDICARE, SELFPAY | PROVIDERS: PCP Family Medicine; Visit Provider Internal Medicine | DX: I48.0 Paroxysmal atrial fibrillation (principal); Z79.01 Long term (current) use of anticoagulants; Z51.81 Encounter for therapeutic drug level monitoring | CPT/HCPCS: 85610; 99211 ==

== ENCOUNTER → 2022-03-22 10:17 | Outpatient (BNVA) | payer MEDICARE, SELFPAY | PROVIDERS: PCP Family Medicine; Visit Provider Internal Medicine | DX: Z79.01 Long term (current) use of anticoagulants (principal); Z51.81 Encounter for therapeutic drug level monitoring; I48.0 Paroxysmal atrial fibrillation | CPT/HCPCS: 85610; 99211 ==

== ENCOUNTER 2022-04-07 08:01 | Outpatient (REF) | payer MEDICARE, SELFPAY ==
[2022-04-07 11:04] LABS: Hematocrit 54.1 % (42.0-52.0); Hemoglobin 17.7 g/dl (14.0-18.0)
[2022-04-07 11:31] LABS: Prostate Specific Antigen 1.31 ng/mL (<0.05-4.0)
[2022-04-13 21:36] LABS: Testosterone, Total 456 ng/dL (250-1100)
== END 2022-04-07 08:02 | disposition home or self-care (01) ==
LOC: HO.WFDLDS 08:01
PROVIDERS: Visit Provider Internal Medicine Endocrinology, Diabetes & Metabolism
DX: E29.1 Testicular hypofunction (principal); Z12.5 Encounter for screening for malignant neoplasm of prostate
CPT/HCPCS: 36415; 84153; 84402; 84403; 85014; 85018

== ENCOUNTER 2022-04-10 07:49 | Outpatient (REF) | payer MEDICARE, SELFPAY ==
[2022-04-19 07:56] LABS: Testosterone, Free 99.4 pg/mL (35.0-155.0); Testosterone, Total 438 ng/dL (250-1100)
== END 2022-04-10 07:50 | disposition home or self-care (01) ==
LOC: HO.WFDLDS 07:49
PROVIDERS: Visit Provider Internal Medicine Endocrinology, Diabetes & Metabolism
DX: E29.1 Testicular hypofunction (principal)
CPT/HCPCS: 36415; 84402; 84403

== ENCOUNTER → 2022-04-12 10:17 | Outpatient (BNVA) | payer MEDICARE, SELFPAY | PROVIDERS: PCP Family Medicine; Visit Provider Internal Medicine | DX: G47.33 Obstructive sleep apnea (adult) (pediatric) (principal); E66.01 Morbid (severe) obesity due to excess calories; Z68.44 Body mass index [BMI] 60.0-69.9, adult | CPT/HCPCS: 99212 ==

== ENCOUNTER → 2022-04-19 08:01 | Outpatient (BNVA) | payer MEDICARE, BC, SELFPAY | PROVIDERS: PCP Family Medicine; Visit Provider Internal Medicine | DX: I48.0 Paroxysmal atrial fibrillation (principal); Z79.01 Long term (current) use of anticoagulants; Z51.81 Encounter for therapeutic drug level monitoring | CPT/HCPCS: 85610; 99211 ==

== ENCOUNTER → 2022-05-17 08:04 | Outpatient (BNVA) | payer MEDICARE, BC, SELFPAY | PROVIDERS: PCP Family Medicine; Visit Provider Internal Medicine | DX: I48.0 Paroxysmal atrial fibrillation (principal); Z51.81 Encounter for therapeutic drug level monitoring; Z79.01 Long term (current) use of anticoagulants | CPT/HCPCS: 85610; 99211 ==

== ENCOUNTER 2022-06-08 08:50 | Outpatient (REF) | payer MEDICARE, SELFPAY ==
[2022-06-08 11:38] LABS: Estimated Average Glucose 114 mg/dL; Hemoglobin A1c % 5.6 %
[2022-06-08 12:01] LABS: Anion Gap 15 (12-20); Blood Urea Nitrogen 21 mg/dL (9-16); Calcium 9.2 mg/dL (8.4-10.2); Carbon Dioxide 27 mmol/L (22-29); Chloride 103 mmol/L (96-108); Estimated Glomerular Filt Rate 57; Glucose Random 94 mg/dL (60-115); Potassium 4.6 mmol/L (3.3-5.1); Sodium 140 mmol/L (135-145)
== END 2022-06-08 08:51 | disposition home or self-care (01) ==
LOC: HO.WFDLDS 08:50
PROVIDERS: Visit Provider Nurse Practitioner Family
DX: I10 Essential (primary) hypertension (principal); I25.10 Atherosclerotic heart disease of native coronary artery without angina pectoris; I48.21 Permanent atrial fibrillation
CPT/HCPCS: 36415; 80048; 83036

== ENCOUNTER → 2022-06-14 10:06 | Outpatient (BNVA) | payer MEDICARE, SELFPAY | PROVIDERS: PCP Family Medicine; Visit Provider Internal Medicine | DX: I48.0 Paroxysmal atrial fibrillation (principal); Z79.01 Long term (current) use of anticoagulants; Z51.81 Encounter for therapeutic drug level monitoring | CPT/HCPCS: 85610; 99211 ==

== ENCOUNTER → 2022-07-12 10:03 | Outpatient (BNVA) | payer MEDICARE, SELFPAY | PROVIDERS: PCP Family Medicine; Visit Provider Internal Medicine | DX: I48.0 Paroxysmal atrial fibrillation (principal); Z79.01 Long term (current) use of anticoagulants; Z51.81 Encounter for therapeutic drug level monitoring | CPT/HCPCS: 85610; 99211 ==

== ENCOUNTER → 2022-07-26 10:07 | Outpatient (BNVA) | payer MEDICARE, SELFPAY | PROVIDERS: PCP Family Medicine; Visit Provider Internal Medicine | DX: I48.0 Paroxysmal atrial fibrillation (principal); Z79.01 Long term (current) use of anticoagulants; Z51.81 Encounter for therapeutic drug level monitoring | CPT/HCPCS: 85610; 99211 ==

== ENCOUNTER → 2022-08-04 10:54 | Outpatient (BNVA) | payer MEDICARE, BC, SELFPAY | PROVIDERS: PCP Family Medicine; Visit Provider Nurse Practitioner Family | DX: G47.33 Obstructive sleep apnea (adult) (pediatric) (principal); E66.01 Morbid (severe) obesity due to excess calories | CPT/HCPCS: 99202 ==

== ENCOUNTER → 2022-08-09 10:12 | Outpatient (BNVA) | payer MEDICARE, BC, SELFPAY | PROVIDERS: PCP Family Medicine; Visit Provider Internal Medicine | DX: I48.0 Paroxysmal atrial fibrillation (principal); Z79.01 Long term (current) use of anticoagulants; Z51.81 Encounter for therapeutic drug level monitoring | CPT/HCPCS: 85610; 99211 ==

== ENCOUNTER → 2022-08-29 10:21 | Outpatient (BNVA) | payer MEDICARE, BC, SELFPAY | PROVIDERS: PCP Family Medicine; Referring Provider Family Medicine; Visit Provider Physician Assistant | DX: K58.9 Irritable bowel syndrome, unspecified (principal); Z86.010 Personal history of colon polyps | CPT/HCPCS: 99212 ==

== ENCOUNTER → 2022-08-30 10:43 | Outpatient (REF) | payer MEDICARE, SELFPAY | LOC: HO.SL 10:43 | PROVIDERS: PCP Family Medicine; Visit Provider Nurse Practitioner Family | DX: G47.33 Obstructive sleep apnea (adult) (pediatric) (principal); E66.01 Morbid (severe) obesity due to excess calories; I10 Essential (primary) hypertension; I48.0 Paroxysmal atrial fibrillation; Z51.81 Encounter for therapeutic drug level monitoring; Z79.01 Long term (current) use of anticoagulants | CPT/HCPCS: 85610; 95806; 99211 ==

== ENCOUNTER → 2022-09-13 10:47 | Outpatient (BNVA) | payer MEDICARE, SELFPAY | PROVIDERS: PCP Family Medicine; Visit Provider Internal Medicine | DX: I48.0 Paroxysmal atrial fibrillation (principal); Z79.01 Long term (current) use of anticoagulants; Z51.81 Encounter for therapeutic drug level monitoring | CPT/HCPCS: 85610; 99211 ==

== ENCOUNTER → 2022-09-27 10:09 | Outpatient (BNVA) | payer MEDICARE, SELFPAY | PROVIDERS: PCP Family Medicine; Visit Provider Internal Medicine | DX: G47.33 Obstructive sleep apnea (adult) (pediatric) (principal); E66.01 Morbid (severe) obesity due to excess calories; Z68.44 Body mass index [BMI] 60.0-69.9, adult | CPT/HCPCS: 99212 ==

== ENCOUNTER → 2022-10-11 08:07 | Outpatient (BNVA) | payer MEDICARE, SELFPAY | PROVIDERS: PCP Family Medicine; Visit Provider Internal Medicine | DX: I48.0 Paroxysmal atrial fibrillation (principal); Z79.01 Long term (current) use of anticoagulants; Z51.81 Encounter for therapeutic drug level monitoring | CPT/HCPCS: 85610; 99211 ==

== ENCOUNTER → 2022-10-19 10:28 | Outpatient (BNVA) | payer MEDICARE, SELFPAY | PROVIDERS: PCP Family Medicine; Visit Provider Nurse Practitioner Family | DX: G47.33 Obstructive sleep apnea (adult) (pediatric) (principal); I48.0 Paroxysmal atrial fibrillation; E66.01 Morbid (severe) obesity due to excess calories; Z68.44 Body mass index [BMI] 60.0-69.9, adult; Z95.0 Presence of cardiac pacemaker; Z95.5 Presence of coronary angioplasty implant and graft; Z98.84 Bariatric surgery status; Z99.89 Dependence on other enabling machines and devices | CPT/HCPCS: 99212 ==

== ENCOUNTER → 2022-11-09 10:27 | Outpatient (BNVA) | payer MEDICARE, SELFPAY | PROVIDERS: PCP Family Medicine; Visit Provider Internal Medicine | DX: I48.0 Paroxysmal atrial fibrillation (principal); Z79.01 Long term (current) use of anticoagulants; Z51.81 Encounter for therapeutic drug level monitoring | CPT/HCPCS: 85610; 99211 ==

== ENCOUNTER → 2022-12-04 19:30 | Outpatient (REF) | payer MEDICARE, SELFPAY | LOC: HO.SL 19:30 | PROVIDERS: Visit Provider Nurse Practitioner Family | DX: G47.33 Obstructive sleep apnea (adult) (pediatric) (principal) | CPT/HCPCS: 95811 ==

== ENCOUNTER 2022-12-05 08:25 | Outpatient (REF) | payer MEDICARE, SELFPAY ==
[2022-12-05 11:55] LABS: Alanine Aminotransferase 49 U/L (0-40); Albumin Level 3.8 g/dL (3.5-5.0); Alkaline Phosphatase 61 U/L (39-117); Anion Gap 10 (12-20); Aspartate Amino Transferase 31 U/L (5-37); Blood Urea Nitrogen 13 mg/dL (9-16); Calcium 8.7 mg/dL (8.4-10.2); Carbon Dioxide 25 mmol/L (22-29); Chloride 108 mmol/L (96-108); Cholesterol 69 mg/dL; Estimated Glomerular Filt Rate > 60; Glucose Fasting 95 mg/dL (60-99); HDL Cholesterol 22 mg/dL; LDL Cholesterol Calculated 37 mg/dl; Potassium 4.3 mmol/L (3.3-5.1); Sodium 139 mmol/L (135-145); Total Protein 6.2 g/dL (6.5-8.0); Triglycerides 51 mg/dL
[2022-12-05 11:56] LABS: Appearance Urine Clear; Color Urine Yellow; Glucose Urine UA Negative (Negative); Leukocyte Esterase Urine Negative (Negative); Nitrite Urine Negative (Negative); PH 5.5 (5.0-9.0); Urine Blood Negative (Negative); Urine Ketones Negative (Negative); Urine Protein Negative (Neg-Trace)
[2022-12-05 12:02] LABS: Prostate Specific Antigen Scr 1.63 ng/mL (<0.05-4.0); TSH reflex Free T4 1.91 uIU/mL (0.32-4.0)
[2022-12-05 12:24] LABS: Creatinine Urine 153.82 mg/dL; Microalbum/Creatinine Ratio Ur 15.6 ug/mg cr
== END 2022-12-05 08:26 | disposition home or self-care (01) ==
LOC: HO.WFDLDS 08:25
PROVIDERS: Visit Provider Family Medicine
DX: Z00.00 Encounter for general adult medical examination without abnormal findings (principal); Z12.5 Encounter for screening for malignant neoplasm of prostate; I10 Essential (primary) hypertension
CPT/HCPCS: 36415; 80053; 80061; 81003; 82043; 84153; 84443

== ENCOUNTER → 2022-12-07 07:40 | Outpatient (BNVA) | payer SELFPAY | PROVIDERS: PCP Family Medicine; Visit Provider Internal Medicine | DX: Z02.79 Encounter for issue of other medical certificate (principal); I48.0 Paroxysmal atrial fibrillation; Z79.01 Long term (current) use of anticoagulants; Z51.81 Encounter for therapeutic drug level monitoring; G47.33 Obstructive sleep apnea (adult) (pediatric); E66.01 Morbid (severe) obesity due to excess calories; Z68.43 Body mass index [BMI] 50.0-59.9, adult; Z99.89 Dependence on other enabling machines and devices | CPT/HCPCS: 85610; 99211; 99212 ==

== ENCOUNTER → 2023-01-03 10:26 | Outpatient (BNVA) | payer MEDICARE, SELFPAY | PROVIDERS: PCP Family Medicine; Visit Provider Internal Medicine | DX: I48.0 Paroxysmal atrial fibrillation (principal); Z79.01 Long term (current) use of anticoagulants; Z51.81 Encounter for therapeutic drug level monitoring | CPT/HCPCS: 85610; 99211 ==

== ENCOUNTER → 2023-01-24 10:22 | Outpatient (BNVA) | payer MEDICARE, SELFPAY | PROVIDERS: PCP Family Medicine; Visit Provider Internal Medicine | DX: I48.0 Paroxysmal atrial fibrillation (principal); Z51.81 Encounter for therapeutic drug level monitoring; Z79.01 Long term (current) use of anticoagulants | CPT/HCPCS: 85610; 99211 ==

== ENCOUNTER → 2023-01-31 07:52 | Outpatient (BNVA) | payer MEDICARE, SELFPAY | PROVIDERS: PCP Family Medicine; Visit Provider Internal Medicine Endocrinology, Diabetes & Metabolism | DX: E29.1 Testicular hypofunction (principal); E66.01 Morbid (severe) obesity due to excess calories; I48.91 Unspecified atrial fibrillation; I25.10 Atherosclerotic heart disease of native coronary artery without angina pectoris; Z68.44 Body mass index [BMI] 60.0-69.9, adult; Z79.82 Long term (current) use of aspirin; Z79.01 Long term (current) use of anticoagulants; Z95.5 Presence of coronary angioplasty implant and graft | CPT/HCPCS: 99212 ==

== ENCOUNTER → 2023-02-01 10:11 | Outpatient (BNVA) | payer MEDICARE, SELFPAY | PROVIDERS: PCP Family Medicine; Visit Provider Internal Medicine | DX: G47.33 Obstructive sleep apnea (adult) (pediatric) (principal); E66.01 Morbid (severe) obesity due to excess calories; Z68.44 Body mass index [BMI] 60.0-69.9, adult | CPT/HCPCS: 99212 ==

== ENCOUNTER 2023-02-02 08:29 | Outpatient (REF) | payer MEDICARE, SELFPAY ==
[2023-02-02 12:05] LABS: Hematocrit 54.4 % (42.0-52.0); Hemoglobin 17.9 g/dl (14.0-18.0)
[2023-02-08 19:13] LABS: Testosterone, Free 134.8 pg/mL (35.0-155.0); Testosterone, Total 468 ng/dL (250-1100)
== END 2023-02-02 08:30 | disposition home or self-care (01) ==
LOC: HO.WFDLDS 08:29
PROVIDERS: Visit Provider Internal Medicine Endocrinology, Diabetes & Metabolism
DX: E89.1 Postprocedural hypoinsulinemia (principal)
CPT/HCPCS: 36415; 84402; 84403; 85014; 85018

== ENCOUNTER 2023-02-05 10:16 | Outpatient (REF) | payer MEDICARE, SELFPAY ==
[2023-02-05 14:28] LABS: Alanine Aminotransferase 25 U/L (0-40); Albumin Level 3.8 g/dL (3.5-5.0); Alkaline Phosphatase 66 U/L (39-117); Anion Gap 11 (12-20); Aspartate Amino Transferase 23 U/L (5-37); Bilirubin Total 0.8 mg/dL (0.0-1.0); Blood Urea Nitrogen 20 mg/dL (9-16); Calcium 8.7 mg/dL (8.4-10.2); Carbon Dioxide 25 mmol/L (22-29); Chloride 110 mmol/L (96-108); Estimated Glomerular Filt Rate > 60; Glucose Random 79 mg/dL (60-115); Potassium 4.8 mmol/L (3.3-5.1); Sodium 141 mmol/L (135-145); Total Protein 6.3 g/dL (6.5-8.0)
[2023-02-10 17:58] LABS: Testosterone, Free 96.6 pg/mL (35.0-155.0); Testosterone, Total 345 ng/dL (250-1100)
== END 2023-02-05 10:17 | disposition home or self-care (01) ==
LOC: HO.WFDLDS 10:16
PROVIDERS: Internal Medicine Endocrinology, Diabetes & Metabolism; Visit Provider Family Medicine
DX: R74.01 Elevation of levels of liver transaminase levels (principal); E29.1 Testicular hypofunction
CPT/HCPCS: 36415; 80053; 84402; 84403

== ENCOUNTER → 2023-02-07 10:11 | Outpatient (BNVA) | payer MEDICARE, SELFPAY | PROVIDERS: PCP Family Medicine; Visit Provider Internal Medicine | DX: I48.0 Paroxysmal atrial fibrillation (principal); Z79.01 Long term (current) use of anticoagulants; Z51.81 Encounter for therapeutic drug level monitoring | CPT/HCPCS: 85610; 99211 ==

== ENCOUNTER → 2023-03-07 10:05 | Outpatient (BNVA) | payer MEDICARE, SELFPAY | PROVIDERS: PCP Family Medicine; Visit Provider Internal Medicine | DX: I48.0 Paroxysmal atrial fibrillation (principal); Z79.01 Long term (current) use of anticoagulants; Z51.81 Encounter for therapeutic drug level monitoring | CPT/HCPCS: 85610; 99211 ==

== ENCOUNTER 2023-03-22 10:15 | Outpatient (RCR) | payer MEDICARE, SELFPAY | END 2023-04-27 09:33 | disposition home or self-care (01) | LOC: HO.WCC 10:15 | PROVIDERS: PCP Family Medicine; Visit Provider Surgery | DX: Z09 Encounter for follow-up examination after completed treatment for conditions other than malignant neoplasm (principal); I87.301 Chronic venous hypertension (idiopathic) without complications of right lower extremity; I87.302 Chronic venous hypertension (idiopathic) without complications of left lower extremity; Q82.0 Hereditary lymphedema; Z79.01 Long term (current) use of anticoagulants; Z87.2 Personal history of diseases of the skin and subcutaneous tissue | CPT/HCPCS: 11042; 99212 ==

== ENCOUNTER → 2023-04-06 08:04 | Outpatient (BNVA) | payer MEDICARE, SELFPAY | PROVIDERS: PCP Family Medicine; Visit Provider Internal Medicine | DX: I48.0 Paroxysmal atrial fibrillation (principal); Z79.01 Long term (current) use of anticoagulants; Z51.81 Encounter for therapeutic drug level monitoring | CPT/HCPCS: 85610; 99211 ==

== ENCOUNTER 2023-04-25 09:07 | Outpatient (AMB) | payer MEDICARE, SELFPAY ==
[2023-04-25 09:30] LABS: Prothrombin Time Whole Bld POC 29.6 sec (11.1-13.5); ~PT, ~INR - Anti Coag Clinic 2.5 (0.9-1.1)
--- NOTE | 2023-04-25 09:30 | MHC.OFFVISCO ---
Intake Intake Visit Reasons: Anticoagulation Allergies No Known Allergies [No Known Allergies*] Allergy (Verified 04/25/23 09:25) Medication List - Last Reconciled 04/25/23 by Svetlana Dawson RN aspirin (Adult Low Dose Aspirin) 81 mg PO DAILY atorvastatin 80 mg PO DAILY 90 days clobetasol 0.05% 1 appl topical BID 2 weeks docusate sodium (Stool Softener) 100 mg PO DAILY famotidine (Pepcid AC) 20 mg PO BID lisinopril 20 mg PO DAILY methylcellulose (laxative) (Citrucel) 500 mg PO BID metoprolol tartrate 25 mg PO BID peg-electrolyte soln 420 gram 240 mL PO ONCE 1 day syringe with needle (BD Luer-Deyanira Syringe) USE TWICE A WEEK testosterone cypionate 50 mg (0.25 mL) IM QWEEK torsemide 20 mg PO DAILY warfarin 5 mg See Protocol PO DAILY 90 days Nursing Note INR: 2.5 in therapeutic range Medications and supplements reviewed No changes in health, diet, medications, or supplements, Denies any signs and symptoms of bleeding or bruising or clotting. Bleeding, bruising, clotting discussed Nutritional guidance given Dose: 2.5mg x 2, 5mg x 5 pt may have taken a full tab last night, will take half tab today F/U INR: pt req 3 weeks Patient verbalizes understanding of instructions given Anti-Coag Initial Assessment Social Hx Patient Tobacco Use Status: Never used Tobacco alcohol intake: never Coding Level of Care Code Est Patient Level 1 Diagnoses Current use of anticoagulant therapy Z79.01 Assessment & Plan Assessment & Plan (1) Current use of anticoagulant therapy: Code(s): Z79.01 - retirement (current) use of anticoagulants Category: Medical
== END 2023-04-25 09:35 | disposition home or self-care (01) ==
LOC: HO.ACS 09:07
PROVIDERS: PCP Family Medicine; Visit Provider Internal Medicine
DX: Z79.01 Long term (current) use of anticoagulants (principal)

== ENCOUNTER → 2023-04-25 09:07 | Outpatient (BNVA) | payer MEDICARE, SELFPAY | PROVIDERS: PCP Family Medicine; Visit Provider Internal Medicine | DX: I48.0 Paroxysmal atrial fibrillation (principal); Z79.01 Long term (current) use of anticoagulants; Z51.81 Encounter for therapeutic drug level monitoring | CPT/HCPCS: 85610; 99211 ==

== ENCOUNTER 2023-05-07 09:26 | Outpatient (AMB) | payer MEDICARE, SELFPAY ==
--- NOTE | 2023-05-07 09:30 | A.OFFVIS_ITS ---
Intake Vital Signs 05/07/23 09:31 Height 5 ft 9 in Weight 422 lb 2.963 oz BMI 62.3 BP 134/68 Blood Pressure Location Lt brachial Position Sitting Pulse 80 Pulse Source Pulse Oximeter Pulse Oximetry (%) 96 Oxygen Delivery Method Room Air Intake Visit Reasons: norbert Intake Note: Pt presents today for a follow up. He reports shortness of breath due to his weight but everything else is going well. Allergies No Known Allergies [No Known Allergies*] Allergy (Verified 05/07/23 09:57) Medication List - Last Reconciled 05/07/23 by Jeremi Barry MD aspirin (Adult Low Dose Aspirin) 81 mg PO DAILY atorvastatin 80 mg PO DAILY 90 days clobetasol 0.05% 1 appl topical BID 2 weeks docusate sodium (Stool Softener) 100 mg PO DAILY famotidine (Pepcid AC) 20 mg PO BID lisinopril 20 mg PO DAILY methylcellulose (laxative) (Citrucel) 500 mg PO BID metoprolol tartrate 25 mg PO BID syringe with needle (BD Luer-Deyanira Syringe) USE TWICE A WEEK testosterone cypionate 50 mg (0.25 mL) IM QWEEK torsemide 20 mg PO DAILY warfarin 5 mg See Protocol PO DAILY 90 days Do you need a note to return to daycare/school/sports/work: No HPI norbert HPI Details This 68 years old gentleman a case of super morbid obesity, and obstructive sleep apnea, is here for his routine follow-up Since his last visit he has his new CPAP machine, and has been using very regularly every night, some nights even to 10 hours. He sleeps good, During the daytime he is short of breath when he walks and then after that sits down, he considers this to be due to his. Weight and fluid retention He has had a leg ulcer which have been [facility] and now almost healed. He has chronic stasis edema of the legs, and veers elastic stockings. He does not need to use any bronchodilator inhaler or oxygen. [facility]LY [facility] Medical History BMI 60.0-69.9, adult Hypogonadism male IBS (irritable bowel syndrome) Morbid obesity Morbid obesity NORBERT (obstructive sleep apnea) Paroxysmal atrial fibrillation Surgical History History of coronary artery stent placement History of permanent cardiac pacemaker placement Hx of appendectomy Hx of colonoscopy Hx of laparoscopic gastric banding Hx of oral surgery Hx of ventral hernia repair Family History Father Heart disease Mother Hypertension Brother Lung cancer Substance use disorder Social History Household Members Other:: lives with his mother and brother Housing: House Alcohol intake: never Patient Tobacco Use Status: Never used Tobacco e-Cigarette/Vaping Use: Never Used Second Hand Smoke Exposure: No service: No Current occupational status: employed (off for the summer) 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 Current occupational exposures/hazards: No Cognitive needs: No Hearing needs: No Vision needs: Yes (Glasses) Review of Systems Const All systems reviewed & are unremarkable except as noted in HPI and below Eyes Reports no additional complaints ENT Reports no additional complaints Card Denies chest pain and Reports irregular heart rhythm (Paroxysmal atrial fib) Resp Reports as per HPI GI Reports other (He has a huge belly with protuberant abdominal wall.) Reports no additional complaints Musc Reports no additional complaints Skin/Breast Reports system reviewed and no additional complaints, except as documented Neuro Reports no additional complaints Psych Reports no additional complaints Physical Exam Vital Signs: Last Vital Signs Pulse 80 05/07/23 09:31 BP 134/68 05/07/23 09:31 Pulse Ox 96 05/07/23 09:31 Oxygen Delivery Method Room Air 05/07/23 09:31 BMI result Body Mass Index 62.3 Const Other: He is a huge man, BMI 66 General: comfortable, no acute distress, alert and awake Orientation/consciousness: patient oriented x3 HEENT Head: Yes normal to inspection General nose exam: No nasal polyps present and No nasal discharge present Face and sinus: Yes sinuses nontender Mouth: oropharynx normal (Hard to examine and oropharynx is very crowded) Throat: Yes posterior oropharynx normal Eyes General: appearance normal, both eyes and all related structures Neck Other: He used Agatha and obese neck Neck: Yes no lymphadenopathy, Yes trachea midline and Yes no JVD Thyroid: Thyroid normal Chest Chest palpation & inspection: normal inspection of the chest, normal palpation of entire chest wall and no tenderness Resp Other: Percussion note is not perceptible due to very thick chest wall. Breath sounds are very distant especially over the basilar areas. But no adventitious sounds are heard. Cardio Palpation: PMI not normal (Not palpable) Rate: regular rate Rhythm: regular rhythm Heart sounds: no gallops and no murmurs GI Palpation (GI): Soft to palpation, Tenderness to palpation present (GI), No hepatosplenomegaly present, Palpable mass present and Other GI palpation findings present (Abdomen is very protuberant) Auscultation: normal bowel sounds Back/Spine/Pelvis Thoracic/Lumbar Spine: thoracic and lumbar spine normal to inspection and thoraco-lumbar ROM limited Skin General skin exam: no rashes or lesions noted Neuro General: patient oriented x3 and no focal motor deficits Cranial nerves: Yes CN's II-XII intact bilaterally Extrem General: Yes normal to inspection, Yes no calf tenderness and Yes edema (Chronic stasis edema of the legs) Psych Appearance: grossly normal and well kempt Speech and movement: Normal speech and movement present Assessment & Plan Assessment & Plan (1) Morbid obesity: Comment: BMI=62.3 CHRONIC PROBLEM, PATIENT IS NOT ACTIVE IN ANY WEIGHT MANAGEMENT PROGRAM. HE IS NOT FOLLOWING ANY ACTIVE DIET PROGRAM. HE IS TRYING TO LOSE WEIGHT ON HIS OWN. HAS GAINED SOME WEIGHT AGAIN AND THIS IS DUE TO HIS IRREGULAR USE OF DIURETIC TABLETS. HAD A GOOD DISCUSSION AND I STRESSED THAT HE NEEDS TO CUT DOWN THE CALORIES INTAKE, ALSO NEEDS TO TAKE HIS DIURETIC PILLS REGULARLY WITHOUT MISSING Code(s): E66.01 - Morbid (severe) obesity due to excess calories (2) NORBERT (obstructive sleep apnea): Comment: KNOWN CASE OF SEVERE OBSTRUCTIVE SLEEP APNEA. HE IS A REGULAR USER OF CPAP AT NIGHT AND USES, FOR 8-10 HOURS EVERY NIGHT. HE ADMITS THAT HE CANNOT ACTUALLY SLEEP WITHOUT THE CPAP. HE HAS THE NEW CPAP DEVICE AND IS GETTING SUPPLIES ON TIME. Code(s): G47.33 - Obstructive sleep apnea (adult) (pediatric) Coding Level of Care Code Est Pt Level 3 (93932) Diagnoses Morbid obesity E66.01 NORBERT (obstructive sleep apnea) G47.33
[2023-05-07 09:31] VITALS: BP 134/68; PULSE 80; O2SAT 96; BMI 62.3
== END 2023-05-07 09:59 | disposition home or self-care (01) ==
PROVIDERS: PCP Family Medicine; Visit Provider Internal Medicine
DX: E66.01 Morbid (severe) obesity due to excess calories (principal); G47.33 Obstructive sleep apnea (adult) (pediatric)
CPT/HCPCS: 99213

== ENCOUNTER → 2023-05-07 09:26 | Outpatient (BNVA) | payer MEDICARE, SELFPAY | PROVIDERS: PCP Family Medicine; Visit Provider Internal Medicine | DX: E66.01 Morbid (severe) obesity due to excess calories (principal); G47.33 Obstructive sleep apnea (adult) (pediatric); Z68.44 Body mass index [BMI] 60.0-69.9, adult | CPT/HCPCS: 99212 ==

== ENCOUNTER 2023-05-23 09:12 | Outpatient (AMB) | payer MEDICARE, SELFPAY ==
--- NOTE | 2023-05-23 09:22 | MHC.OFFVISCO ---
Intake Intake Visit Reasons: Anticoagulation Allergies No Known Allergies [No Known Allergies*] Allergy (Verified 05/23/23 09:18) Medication List - Last Reconciled 05/23/23 by Svetlana Dawson RN aspirin (Adult Low Dose Aspirin) 81 mg PO DAILY atorvastatin 80 mg PO DAILY 90 days clobetasol 0.05% 1 appl topical BID 2 weeks docusate sodium (Stool Softener) 100 mg PO DAILY famotidine (Pepcid AC) 20 mg PO BID lisinopril 20 mg PO DAILY methylcellulose (laxative) (Citrucel) 500 mg PO BID metoprolol tartrate 25 mg PO BID syringe with needle (BD Luer-Deyanira Syringe) USE TWICE A WEEK testosterone cypionate 50 mg (0.25 mL) IM QWEEK torsemide 20 mg PO DAILY warfarin 5 mg See Protocol PO DAILY 90 days Nursing Note INR: 2.3- in therapeutic range Medications and supplements reviewed- no changes No changes in health, diet, medications, or supplements, Denies any signs and symptoms of bleeding or bruising or clotting. Bleeding, bruising, clotting discussed Nutritional guidance given Dose: 2.5mg x 2, 5mg x 5 F/U INR: 4 weeks Patient verbalizes understanding of instructions given Anti-Coag Initial Assessment Social Hx Patient Tobacco Use Status: Never used Tobacco alcohol intake: never Coding Level of Care Code Est Patient Level 1 Diagnoses Current use of anticoagulant therapy Z79.01 Assessment & Plan Assessment & Plan (1) Current use of anticoagulant therapy: Code(s): Z79.01 - intermediate (current) use of anticoagulants Category: Medical
[2023-05-23 09:23] LABS: Prothrombin Time Whole Bld POC 27.4 sec (11.1-13.5); ~PT, ~INR - Anti Coag Clinic 2.3 (0.9-1.1)
== END 2023-05-23 09:31 | disposition home or self-care (01) ==
LOC: HO.ACS 09:12
PROVIDERS: PCP Family Medicine; Visit Provider Internal Medicine
DX: Z79.01 Long term (current) use of anticoagulants (principal)

== ENCOUNTER → 2023-05-23 09:12 | Outpatient (BNVA) | payer MEDICARE, SELFPAY | PROVIDERS: PCP Family Medicine; Visit Provider Internal Medicine | DX: I48.0 Paroxysmal atrial fibrillation (principal); Z79.01 Long term (current) use of anticoagulants; Z51.81 Encounter for therapeutic drug level monitoring | CPT/HCPCS: 85610; 99211 ==

== ENCOUNTER 2023-06-20 10:23 | Outpatient (AMB) | payer MEDICARE, SELFPAY ==
--- NOTE | 2023-06-20 10:33 | MHC.OFFVISCO ---
Intake Intake Visit Reasons: Anticoagulation Allergies No Known Allergies [No Known Allergies*] Allergy (Verified 06/20/23 10:29) Medication List - Last Reconciled 06/20/23 by Svetlana Dawson RN aspirin (Adult Low Dose Aspirin) 81 mg PO DAILY atorvastatin 80 mg PO DAILY 90 days clobetasol 0.05% 1 appl topical BID 2 weeks docusate sodium (Stool Softener) 100 mg PO DAILY famotidine (Pepcid AC) 20 mg PO BID lisinopril 40 mg PO DAILY 90 days methylcellulose (laxative) (Citrucel) 500 mg PO BID metoprolol tartrate 25 mg PO BID syringe with needle (BD Luer-Deyanira Syringe) USE TWICE A WEEK testosterone cypionate 50 mg (0.25 mL) IM QWEEK torsemide 20 mg PO DAILY warfarin 5 mg See Protocol PO DAILY 90 days Nursing Note INR 1.5-?? out of therapeutic range- pt states missed a dose on sunday Medications and supplements reviewed Patient status: no c.o Medications or supplements: no changes Diet: same Denies any signs and symptoms of bleeding or clotting or unusual bruising Bleeding, bruising, clotting discussed -aware at risk for clotting Nutritional guidance given: no greens for 2 days, eat reds for 2 days Dose: 7.5mg today, 5mg tomm then cont reg 2.5mg x 2, 5mg x 5 F/U INR Date : pt req 06/26/23? Patient verbalizing understanding of instructions given. 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
[2023-06-20 10:34] LABS: Prothrombin Time Whole Bld POC 18.2 sec (11.1-13.5); ~PT, ~INR - Anti Coag Clinic 1.5 (0.9-1.1)
== END 2023-06-20 10:47 | disposition home or self-care (01) ==
LOC: HO.ACS 10:23
PROVIDERS: PCP Family Medicine; Visit Provider Internal Medicine
DX: Z79.01 Long term (current) use of anticoagulants (principal)

== ENCOUNTER → 2023-06-20 10:23 | Outpatient (BNVA) | payer MEDICARE, SELFPAY | PROVIDERS: PCP Family Medicine; Visit Provider Internal Medicine | DX: I48.0 Paroxysmal atrial fibrillation (principal); Z79.01 Long term (current) use of anticoagulants; Z51.81 Encounter for therapeutic drug level monitoring | CPT/HCPCS: 85610; 99211 ==

== ENCOUNTER 2023-06-26 10:48 | Outpatient (AMB) | payer MEDICARE, SELFPAY ==
--- NOTE | 2023-06-26 10:54 | MHC.OFFVISCO ---
Intake Intake Visit Reasons: Anticoagulation Allergies No Known Allergies [No Known Allergies*] Allergy (Verified 06/26/23 10:49) Medication List - Last Reconciled 06/26/23 by Svetlana Dawson RN aspirin (Adult Low Dose Aspirin) 81 mg PO DAILY atorvastatin 80 mg PO DAILY 90 days clobetasol 0.05% 1 appl topical BID 2 weeks docusate sodium (Stool Softener) 100 mg PO DAILY famotidine (Pepcid AC) 20 mg PO BID lisinopril 40 mg PO DAILY 90 days methylcellulose (laxative) (Citrucel) 500 mg PO BID metoprolol tartrate 25 mg PO BID syringe with needle (BD Luer-Deyanira Syringe) USE TWICE A WEEK testosterone cypionate 50 mg (0.25 mL) IM QWEEK torsemide 20 mg PO DAILY warfarin 5 mg See Protocol PO DAILY 90 days Nursing Note INR: 2.1- in therapeutic range pt states missed a dose yesterday Medications and supplements reviewed No changes in health, diet, medications, or supplements, Denies any signs and symptoms of bleeding or bruising or clotting. 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
[2023-06-26 10:56] LABS: Prothrombin Time Whole Bld POC 24.9 sec (11.1-13.5); ~PT, ~INR - Anti Coag Clinic 2.1 (0.9-1.1)
== END 2023-06-26 11:01 | disposition home or self-care (01) ==
LOC: HO.ACS 10:48
PROVIDERS: PCP Family Medicine; Visit Provider Internal Medicine
DX: Z79.01 Long term (current) use of anticoagulants (principal)

== ENCOUNTER → 2023-06-26 10:48 | Outpatient (BNVA) | payer MEDICARE, SELFPAY | PROVIDERS: PCP Family Medicine; Visit Provider Internal Medicine | DX: I48.0 Paroxysmal atrial fibrillation (principal); Z79.01 Long term (current) use of anticoagulants; Z51.81 Encounter for therapeutic drug level monitoring | CPT/HCPCS: 85610; 99211 ==

== ENCOUNTER 2023-07-10 10:22 | Outpatient (AMB) | payer MEDICARE, SELFPAY ==
[2023-07-10 10:29] LABS: Prothrombin Time Whole Bld POC 23.6 sec (11.1-13.5)
--- NOTE | 2023-07-10 10:36 | MHC.OFFVISCO ---
Intake Intake Visit Reasons: Anticoagulation Allergies No Known Allergies [No Known Allergies*] Allergy (Verified 07/10/23 10:23) Medication List - Last Reconciled 07/10/23 by Miri Tovar RN aspirin (Adult Low Dose Aspirin) 81 mg PO DAILY atorvastatin 80 mg PO DAILY 90 days clobetasol 0.05% 1 appl topical BID 2 weeks docusate sodium (Stool Softener) 100 mg PO DAILY famotidine (Pepcid AC) 20 mg PO BID lisinopril 40 mg PO DAILY 90 days methylcellulose (laxative) (Citrucel) 500 mg PO BID metoprolol tartrate 25 mg (1/2 x 50 mg) PO BID 90 days syringe with needle (BD Luer-Deyanira Syringe) USE TWICE A WEEK testosterone cypionate 50 mg (0.25 mL) IM QWEEK torsemide 20 mg PO DAILY warfarin 5 mg See Protocol PO DAILY 90 days Nursing Note INR: 2.0 in therapeutic range Medications and supplements reviewed No changes in health, diet, medications, or supplements, Denies any signs and symptoms of bleeding or bruising or clotting. Bleeding, bruising, clotting discussed Nutritional guidance given-AVOID GREENS FOR 2 DAYS AND HAVE RED OR ORANGE TODAY TO HELP RAISE THE INR Dose: KEEP SAME DOSE: 2.5MG X 2 DAYS/ 5 MG X 5 DAYS F/U INR: 4 WEEKS UNLESS THERE ARE HEALTH OR MED CHANGES Patient verbalizes understanding of instructions given Anti-Coag Initial Assessment Social Hx Patient Tobacco Use Status: Never used Tobacco alcohol intake: never Coding Level of Care Code Est Patient Level 1 Diagnoses Current use of anticoagulant therapy Z79.01 Assessment & Plan Assessment & Plan (1) Current use of anticoagulant therapy: Code(s): 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
== END 2023-07-10 10:38 | disposition home or self-care (01) ==
LOC: HO.ACS 10:22
PROVIDERS: PCP Family Medicine; Visit Provider Internal Medicine
DX: Z79.01 Long term (current) use of anticoagulants (principal)

== ENCOUNTER → 2023-07-10 10:22 | Outpatient (BNVA) | payer MEDICARE, SELFPAY | PROVIDERS: PCP Family Medicine; Visit Provider Internal Medicine | DX: I48.0 Paroxysmal atrial fibrillation (principal); Z79.01 Long term (current) use of anticoagulants; Z51.81 Encounter for therapeutic drug level monitoring | CPT/HCPCS: 85610; 99211 ==

== ENCOUNTER 2023-08-07 10:13 | Outpatient (AMB) | payer MEDICARE, SELFPAY ==
--- NOTE | 2023-08-07 10:32 | MHC.OFFVISCO ---
Intake Intake Visit Reasons: Anticoagulation Allergies No Known Allergies [No Known Allergies*] Allergy (Verified 08/07/23 10:27) Medication List - Last Reconciled 08/07/23 by Svetlana Dawson RN aspirin (Adult Low Dose Aspirin) 81 mg PO DAILY atorvastatin 80 mg PO DAILY 90 days clobetasol 0.05% 1 appl topical BID 2 weeks docusate sodium (Stool Softener) 100 mg PO DAILY famotidine (Pepcid AC) 20 mg PO BID lisinopril 40 mg PO DAILY 90 days methylcellulose (laxative) (Citrucel) 500 mg PO BID metoprolol tartrate 25 mg (1/2 x 50 mg) PO BID 90 days syringe with needle (BD Luer-Deyanira Syringe) USE TWICE A WEEK testosterone cypionate 50 mg (0.25 mL) IM QWEEK torsemide 20 mg PO DAILY warfarin 5 mg See Protocol PO DAILY 90 days Nursing Note INR: 2.6- in therapeutic range 2-3 Medications and supplements reviewed No changes in health, diet, medications, or supplements, Denies any signs and symptoms of bleeding or bruising or clotting. 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
[2023-08-07 10:33] LABS: Prothrombin Time Whole Bld POC 31.7 sec (11.1-13.5); ~PT, ~INR - Anti Coag Clinic 2.6 (0.9-1.1)
== END 2023-08-07 10:36 | disposition home or self-care (01) ==
LOC: HO.ACS 10:13
PROVIDERS: PCP Family Medicine; Visit Provider Internal Medicine
DX: Z79.01 Long term (current) use of anticoagulants (principal)

== ENCOUNTER → 2023-08-07 10:13 | Outpatient (BNVA) | payer MEDICARE, SELFPAY | PROVIDERS: PCP Family Medicine; Visit Provider Internal Medicine | DX: I48.0 Paroxysmal atrial fibrillation (principal); Z79.01 Long term (current) use of anticoagulants; Z51.81 Encounter for therapeutic drug level monitoring | CPT/HCPCS: 85610; 99211 ==

== ENCOUNTER 2023-08-20 10:13 | Outpatient (AMB) | payer MEDICARE, SELFPAY ==
--- NOTE | 2023-08-20 10:16 | A.OFFPC_ITS ---
Vital Signs 08/20/23 10:19 Height 5 ft 9 in Weight 435 lb BMI 64.2 BP 134/74 Blood Pressure Location Lt brachial Position Sitting Pulse 88 Pulse Source Pulse Oximeter Pulse Oximetry (%) 95 Oxygen Delivery Method Room Air Intake Visit Reasons: f/u hypertension and chronic condition Intake Note: Patient is here for follow up on hypertension and chronic conditions. Patient states that he needs new prescription for Metformin, and also stated he was taking 100mg daily. Allergies No Known Allergies [No Known Allergies*] Allergy (Verified 08/20/23 10:20) Tobacco use date assessed: 08/20/23 Dental Screening Dental Screen Date: 08/20/23 Did you have a dental visit in the last 12 months?: No Did you have a dental problem in the last 6 months where you did not have access to dental care?: No Was dental information given to patient?: No HPI f/u hypertension and chronic condition HPI Details 68 y/o male presents to f/u hypertension and chronic conditions. Blood pressure today 134/74. He is on lisinopril 40mg and metoprolol 25mg b.i.d. Pt notes he had used to take metformin 100mg daily and is requesting a new prescription for this. HPI Comments History of Present Illness Details Documentation assistance for Sin Mcdonnell MD, was provided by Jimbo Rizzo,?Personalization Specialist on 08/20/2023 11:02 AM BRIAN. I, Dr. Mcdonnell, have read, observed, and verified documentation.? [facility] Medical History BMI 60.0-69.9, adult Hypogonadism male IBS (irritable bowel syndrome) Morbid obesity Morbid obesity NORBERT (obstructive sleep apnea) Paroxysmal atrial fibrillation Surgical History History of coronary artery stent placement History of permanent cardiac pacemaker placement Hx of appendectomy Hx of colonoscopy Hx of laparoscopic gastric banding Hx of oral surgery Hx of ventral hernia repair Family History Father Heart disease Mother Hypertension Brother Lung cancer Substance use disorder Social History Household Members Other:: lives with his mother and brother Housing: House Alcohol intake: never Patient Tobacco Use Status: Never used Tobacco e-Cigarette/Vaping Use: Never Used Second Hand Smoke Exposure: No service: No Current occupational status: employed (off for the summer) 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 Emilio Patel, Karol Becker, Daniel Parikh and colleagues, with an educational macho from [employer]. Review of Systems Const Denies chills, Denies fatigue, Denies fever(s), Denies headache(s) and Denies weakness ENT Denies dizziness and Denies headache(s) Card Reports dyspnea Resp Denies cough, Reports dyspnea, Denies wheezing and Denies other (shortness of breath) Musc Denies numbness and Denies tingling Neuro Denies dizziness, Denies headache(s), Denies numbness, Denies tingling and Denies weakness Psych Denies anxiety and Denies depression Endo Denies fatigue Aller/Immun Denies wheezing Physical exam (Primary Care) Vital Signs: Last Vital Signs Pulse 88 08/20/23 10:19 BP 134/74 08/20/23 10:19 Pulse Ox 95 08/20/23 10:19 Oxygen Delivery Method Room Air 08/20/23 10:19 BMI result Body Mass Index 64.2 Tobacco/Smoking Status: Tobacco use Status Tobacco use date assessed 08/20/23 08/20/23 10:28 Patient Tobacco Use Status Never used Tobacco 08/20/23 10:18 e-Cigarette/Vaping Use Never Used 08/20/23 10:18 Thrive Assessment: Date of Thrive Assessment Date Thrive assessed 09/22/21 08/20/23 10:18 Const General: well developed; No acute distress Nutritional Appearance: obese morbidly obese Orientation/consciousness: patient oriented x3 HENMT Head: Yes normocephalic and Yes atraumatic Eyes General: appearance normal, both eyes and all related structures Pupils: Equal, round and reactive pupils present EOM: EOMs intact bilaterally Resp Effort & Inspection: normal respiratory effort Auscultation: clear to auscultation bilaterally Cardio Rate: regular rate Heart sounds: S1 normal heart sound present, S2 normal heart sound present, no gallops, no murmurs and no rubs Neuro General: patient oriented x3 and gait normal Cranial nerves: Yes Equal, round and reactive pupils present Psych Affect: normal affect Assessment and Plan Assessment & Plan (1) Essential hypertension: Code(s): I10 - Essential (primary) hypertension Plan: Blood?pressure?is?controlled.??Goal?is?less?than?140/90 Continue?current?medication?regimen (2) Morbid obesity: Code(s): E66.01 - Morbid (severe) obesity due to excess calories Plan: Ongoing?morbid?obesity?with?ongoing?weight?gain History?of?a?bariatric?procedures. Patient?would?like?a?referral?but?declines?referral[place] (3) Paroxysmal atrial fibrillation: Code(s): I48.0 - Paroxysmal atrial fibrillation Plan: Stable Rate?controlled?and?anticoagulated. (4) Shortness of breath: Code(s): R06.02 - Shortness of breath Plan: Primarily?due?to?restrictive?lung?disease?from?morbid?obesity Will?check myocardial?perfusion?imaging?with?pharmacologic?stress Orders: Orders CA lexiscan stress w domenic Today E66.01 - Morbid (severe) obesity due to excess calories, I10 - Essential (primary) hypertension, I48.0 - Paroxysmal atrial fibrillation, R06.02 - Shortness of breath Referrals Medical Weight Management Referral E66.01 - Morbid (severe) obesity due to excess calories, Z68.44 - Body mass index [BMI] 60.0-69.9, adult Medications: Changed From metoprolol tartrate 25 mg (1/2 x 50 mg) PO BID 90 days 90 tabs 2RF I10 - Essential (primary) hypertension To metoprolol tartrate 50 mg PO BID 180 tabs 2RF 90 days I10 - Essential (primary) hypertension Coding Level of Care Code Est Pt Level 4 (98030) Diagnoses Essential hypertension I10 Morbid obesity E66.01 Paroxysmal atrial fibrillation I48.0 Shortness of breath R06.02
[2023-08-20 10:19] VITALS: BP 134/74; PULSE 88; O2SAT 95; BMI 64.2
== END 2023-08-20 11:11 | disposition home or self-care (01) ==
PROVIDERS: PCP Family Medicine; Visit Provider Family Medicine
DX: I10 Essential (primary) hypertension (principal); E66.01 Morbid (severe) obesity due to excess calories; I48.0 Paroxysmal atrial fibrillation; Z68.44 Body mass index [BMI] 60.0-69.9, adult; R06.02 Shortness of breath
CPT/HCPCS: 99214

== ENCOUNTER 2023-09-03 09:56 | Outpatient (AMB) | payer MEDICARE, SELFPAY ==
[2023-09-03 10:16] LABS: Prothrombin Time Whole Bld POC 27.4 sec (11.1-13.5); ~PT, ~INR - Anti Coag Clinic 2.3 (0.9-1.1)
--- NOTE | 2023-09-03 10:18 | MHC.OFFVISCO ---
Intake Intake Visit Reasons: Anticoagulation Allergies No Known Allergies [No Known Allergies*] Allergy (Verified 09/03/23 10:54) Medication List - Last Reconciled 09/03/23 by Abbi Lehman RN aspirin (Adult Low Dose Aspirin) 81 mg PO DAILY atorvastatin 80 mg PO DAILY 90 days clobetasol 0.05% 1 appl topical BID 2 weeks docusate sodium (Stool Softener) 100 mg PO DAILY famotidine (Pepcid AC) 20 mg PO BID lisinopril 40 mg PO DAILY 90 days metoprolol tartrate 50 mg PO BID 90 days syringe with needle (BD Luer-Deyanira Syringe) USE TWICE A WEEK testosterone cypionate 50 mg (0.25 mL) IM QWEEK torsemide 20 mg PO DAILY warfarin 5 mg See Protocol PO DAILY 90 days Nursing Note Amb to ACS slowly, PRICE, feelin well Medications and supplements reviewed, sts never had refill on clobetasol ointment as not seeing the prescriber anymore, also not using methylcellulose tabs, would like the ointment, encouraged to call PCP for that, dosing written on warfarin dosing sheet No other changes in health, diet, medications, or supplements Denies any unusual signs and symptoms of bruising, bleeding Denies any new Chest pain, SOB, or clotting INR:2.3 in therapeutic range Nutritional guidance given: balance greens and reds in diet, be aware of the reds that raise over iday Dose: continue usual dosing;2.5mg x 2 days and 5mg x 5 days F/U INR: 4 weeks Patient verbalizes understanding of instructions given with accurate read back/ teach back of dosing Anti-Coag Initial Assessment Social Hx Patient Tobacco Use Status: Never used Tobacco alcohol intake: never Questionnaires HAS-BLED Does the patient had uncontrolled Hypertension?: No Does the patient have renal disease?: No Does the patient have liver disease?: No Does the patient have a history of stroke?: No Has the patient had major bleeding or predisposition to bleeding?: No Does the patient have labile INRs?: No Is the patient over 65 years of age?: Yes Is the patient on medications that gives them a predisposition to bleeding?: Yes Does the patient use alcohol?: No HAS-BLED Score: 2 CHADSVASC Age: 66-74 Gender: Male Does the patient have a history of CHF?: Yes Does the patient have a history of Hypertension?: Yes Does the patient have a history of Stroke/TIA/Thromboembolism?: No Does the patient have a history of Vascular Disease (prior PR, PAD or aortic plaque)?: No Does the patient have a history of Diabetes?: No CHADS VACS Score: 3 Kristin Prediction Score Rsk VTE Active Cancer: No Previous VTE, excluding superficial vein thrombosis: No Reduced mobility: Yes Already known Thrombophilic Condition: Yes With-in last month Trauma and/or Surgery: No Elderly 70 year or older: No Heart and/or Respiratory Failure: No Acute Myocardial infarction and/or Ischemic Stroke: No Acute Infection and/or Rheumatologic Disorder: No Obesity (BMI 30 or greater): Yes Ongoing Hormonal Treatment: Yes Score: 8 Kristin Score less than 4; Low Risk of VTE Kristin Score 4 or greater; High Risk of VTE Coding Level of Care Code Est Patient Level 1 Time Spent (min) 15
== END 2023-09-03 10:59 | disposition home or self-care (01) ==
LOC: HO.ACS 09:56
PROVIDERS: PCP Family Medicine; Visit Provider Internal Medicine
DX: Z79.01 Long term (current) use of anticoagulants (principal)

== ENCOUNTER → 2023-09-03 09:56 | Outpatient (BNVA) | payer MEDICARE, SELFPAY | PROVIDERS: PCP Family Medicine; Visit Provider Internal Medicine | DX: G47.33 Obstructive sleep apnea (adult) (pediatric) (principal); E66.01 Morbid (severe) obesity due to excess calories; I48.0 Paroxysmal atrial fibrillation; Z79.01 Long term (current) use of anticoagulants; Z51.81 Encounter for therapeutic drug level monitoring; Z68.44 Body mass index [BMI] 60.0-69.9, adult | CPT/HCPCS: 85610; 99211; 99212 ==

== ENCOUNTER 2023-09-03 10:30 | Outpatient (AMB) | payer MEDICARE, SELFPAY ==
--- NOTE | 2023-09-03 10:46 | MHC.OFFVIS ---
Intake Vital Signs 09/03/23 10:47 Height 5 ft 9 in Weight 444 lb BMI 65.6 BP 130/92 H Blood Pressure Location Lt brachial Position Sitting Pulse 94 Pulse Source Pulse Oximeter Pulse Oximetry (%) 96 Oxygen Delivery Method Room Air Intake Visit Reasons: norbert Intake Note: pt is here for follow up and states he is doing well with c-pap,he has very good usage, he has a resmed machine by [employer] Student Counsellor Required: No Allergies No Known Allergies [No Known Allergies*] Allergy (Verified 09/03/23 10:54) Medication List - Last Reconciled 09/03/23 by Jeremi Barry MD aspirin (Adult Low Dose Aspirin) 81 mg PO DAILY atorvastatin 80 mg PO DAILY 90 days clobetasol 0.05% 1 appl topical BID 2 weeks docusate sodium (Stool Softener) 100 mg PO DAILY famotidine (Pepcid AC) 20 mg PO BID lisinopril 40 mg PO DAILY 90 days metoprolol tartrate 50 mg PO BID 90 days syringe with needle (BD Luer-Deyanira Syringe) USE TWICE A WEEK testosterone cypionate 50 mg (0.25 mL) IM QWEEK torsemide 20 mg PO DAILY warfarin 5 mg See Protocol PO DAILY 90 days Do you need a note to return to daycare/school/sports/work: No HPI norbert HPI Details ADD WORD IS 68 YEARS OLD GENTLEMAN WITH SUPER MORBID OBESITY. 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 SLEEPS VERY GOOD WITH THE USE OF CPAP, HE CLAIMS THAT HE WOULD NOT BE ABLE TO SLEEP WITHOUT THE CPAP ANYWAY. USES A FULLFACE MASK, HAS NO ISSUES WITH THE CPAP MACHINE OR THE MASK. FAR WEIGHT IS CONCERNED IT IS UP AND DOWN. DEPENDING UPON IF HE IS USING HIS DIURETIC PILLS REGULARLY ARE NOT. COMPARED TO LAST VISIT HE HAS PUT ON ABOUT 9 LB. HE HAS HAD CHRONIC EDEMA OF THE LEGS WITH ULCERATION ON THE LEFT LEG WHICH HAS HEALED. LUCKILY HE IS NOT A SMOKER AND DOES NOT HAVE ANY COMPLAINT OF COUGH OR EXPECTORATION. [facility] Medical History IBS (irritable bowel syndrome) BMI 60.0-69.9, adult Morbid obesity NORBERT (obstructive sleep apnea) Paroxysmal atrial fibrillation Morbid obesity Hypogonadism male Surgical History Hx of colonoscopy History of coronary artery stent placement History of permanent cardiac pacemaker placement Hx of ventral hernia repair Hx of laparoscopic gastric banding Hx of oral surgery Hx of appendectomy Family History Father Heart disease Mother Hypertension Brother Lung cancer Substance use disorder Social History Household Members Other:: lives with his mother and brother Housing: House Alcohol intake: never Patient Tobacco Use Status: Never used Tobacco e-Cigarette/Vaping Use: Never Used Second Hand Smoke Exposure: No service: No Current occupational status: employed (off for the summer) 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 Current occupational exposures/hazards: No Cognitive needs: No Hearing needs: No Vision needs: Yes (Glasses) Review of Systems Const All systems reviewed & are unremarkable except as noted in HPI and below Eyes Reports no additional complaints ENT Reports no additional complaints Card Denies chest pain and Reports irregular heart rhythm (Paroxysmal atrial fib) Resp Reports as per HPI GI Reports other (He has a huge belly with protuberant abdominal wall.) Reports no additional complaints Musc Reports no additional complaints Skin/Breast Reports system reviewed and no additional complaints, except as documented Neuro Reports no additional complaints Psych Reports no additional complaints Physical Exam Vital Signs: Last Vital Signs Pulse 94 09/03/23 10:47 BP 130/92 H 09/03/23 10:47 Pulse Ox 96 09/03/23 10:47 Oxygen Delivery Method Room Air 09/03/23 10:47 BMI result Body Mass Index 65.6 Const Other: He is a huge man, BMI 66 General: comfortable, no acute distress, alert and awake Orientation/consciousness: patient oriented x3 HEENT Head: Yes normal to inspection General nose exam: No nasal polyps present and No nasal discharge present Face and sinus: Yes sinuses nontender Mouth: oropharynx normal (Hard to examine and oropharynx is very crowded) Throat: Yes posterior oropharynx normal Eyes General: appearance normal, both eyes and all related structures Neck Other: He used Agatha and obese neck Neck: Yes no lymphadenopathy, Yes trachea midline and Yes no JVD Thyroid: Thyroid normal Chest Chest palpation & inspection: normal inspection of the chest, normal palpation of entire chest wall and no tenderness Resp Other: Percussion note is not perceptible due to very thick chest wall. Breath sounds are very distant especially over the basilar areas. But no adventitious sounds are heard. Cardio Palpation: PMI not normal (Not palpable) Rate: regular rate Rhythm: regular rhythm Heart sounds: no gallops and no murmurs GI Palpation (GI): Soft to palpation, Tenderness to palpation present (GI), No hepatosplenomegaly present, Palpable mass present and Other GI palpation findings present (Abdomen is very protuberant) Auscultation: normal bowel sounds Back/Spine/Pelvis Thoracic/Lumbar Spine: thoracic and lumbar spine normal to inspection and thoraco-lumbar ROM limited Skin General skin exam: no rashes or lesions noted Neuro General: patient oriented x3 and no focal motor deficits Cranial nerves: Yes CN's II-XII intact bilaterally Extrem General: Yes normal to inspection, Yes no calf tenderness and Yes edema (Chronic stasis edema of the legs) Psych Appearance: grossly normal and well kempt Speech and movement: Normal speech and movement present Results Reviewed Results Reviewed: Compliance report for the last 30 nights is reviewed and he has used 100% of the nights. Average use per night 9 hours 43 minutes. Pressure used mostly 14-16 cm. No air leak is recorded Residual AHI 1.7 Assessment & Plan Assessment & Plan (1) Morbid obesity: Comment: Continues to have super morbid obesity, BMI = 65.6 There is no potential for losing weight. Code(s): E66.01 - Morbid (severe) obesity due to excess calories Plan: Discussed about diet and weight and exercise. He tries to control his diet but not able. To do any exercise (2) NORBERT (obstructive sleep apnea): Comment: KNOWN CASE OF SEVERE OBSTRUCTIVE SLEEP APNEA. HE IS A REGULAR USER OF CPAP AT NIGHT AND USES, FOR 8-10 HOURS EVERY NIGHT. HE ADMITS THAT HE CANNOT ACTUALLY SLEEP WITHOUT THE CPAP. HE HAS THE NEW CPAP DEVICE AND IS GETTING SUPPLIES ON TIME. Code(s): G47.33 - Obstructive sleep apnea (adult) (pediatric) Plan: As above Coding Level of Care Code Est Pt Level 3 (20625) Diagnoses Morbid obesity E66.01 NORBERT (obstructive sleep apnea) G47.33
[2023-09-03 10:47] VITALS: BP 130/92; PULSE 94; O2SAT 96; BMI 65.6
== END 2023-09-03 11:03 | disposition home or self-care (01) ==
PROVIDERS: PCP Family Medicine; Visit Provider Internal Medicine
DX: E66.01 Morbid (severe) obesity due to excess calories (principal); G47.33 Obstructive sleep apnea (adult) (pediatric)
CPT/HCPCS: 99213

== ENCOUNTER 2023-10-10 08:01 | Outpatient (AMB) | payer MEDICARE, SELFPAY ==
[2023-10-10 08:10] LABS: Prothrombin Time Whole Bld POC 26.2 sec (11.1-13.5); ~PT, ~INR - Anti Coag Clinic 2.2 (0.9-1.1)
--- NOTE | 2023-10-10 08:11 | MHC.OFFVISCO ---
Intake Intake Visit Reasons: Anticoagulation Allergies No Known Allergies [No Known Allergies*] Allergy (Verified 10/10/23 08:04) Medication List - Last Reconciled 10/10/23 by Abbi Lehman RN aspirin (Adult Low Dose Aspirin) 81 mg PO DAILY atorvastatin 80 mg PO DAILY 90 days clobetasol 0.05% 1 appl topical BID 2 weeks docusate sodium (Stool Softener) 100 mg PO DAILY famotidine (Pepcid AC) 20 mg PO BID lisinopril 40 mg PO DAILY 90 days metoprolol tartrate 50 mg PO BID 90 days syringe with needle (BD Luer-Deyanira Syringe) USE TWICE A WEEK DIRECTED testosterone cypionate 50 mg (0.25 mL) IM QWEEK torsemide 20 mg PO DAILY warfarin 5 mg See Protocol PO DAILY 90 days Nursing Note Amb to [facility] feeling well Medications and supplements reviewed No changes in health, diet, medications, or supplements Denies any unusual signs and symptoms of bruising, bleeding Denies any new Chest pain, SOB, or clotting INR: 2.2 in therapeutic range Nutritional guidance given: balance greens and reds in diet,be consistent Dose: continue usual dosing;2.5mg x 2 days and 5mg x 5 days F/U INR: 4 weeks Patient verbalizes understanding of instructions given with accurate read back/ teach back of dosing Anti-Coag Initial Assessment Social Hx Patient Tobacco Use Status: Never used Tobacco alcohol intake: never Coding Level of Care Code Est Patient Level 1 Diagnoses Current use of anticoagulant therapy Z79.01 Time Spent (min) 15 Assessment & Plan Assessment & Plan (1) Current use of anticoagulant therapy: Code(s): 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
== END 2023-10-10 08:15 | disposition home or self-care (01) ==
LOC: HO.ACS 08:01
PROVIDERS: PCP Family Medicine; Visit Provider Internal Medicine
DX: Z79.01 Long term (current) use of anticoagulants (principal)

== ENCOUNTER → 2023-10-10 08:01 | Outpatient (BNVA) | payer MEDICARE, SELFPAY | PROVIDERS: PCP Family Medicine; Visit Provider Internal Medicine | DX: I48.0 Paroxysmal atrial fibrillation (principal); Z51.81 Encounter for therapeutic drug level monitoring; Z79.01 Long term (current) use of anticoagulants | CPT/HCPCS: 85610; 99211 ==

== ENCOUNTER 2023-11-07 10:02 | Outpatient (AMB) | payer MEDICARE, SELFPAY ==
[2023-11-07 10:11] LABS: Prothrombin Time Whole Bld POC 28.4 sec (11.1-13.5); ~PT, ~INR - Anti Coag Clinic 2.4 (0.9-1.1)
--- NOTE | 2023-11-07 10:14 | MHC.OFFVISCO ---
Intake Intake Visit Reasons: Anticoagulation Allergies No Known Allergies [No Known Allergies*] Allergy (Verified 11/07/23 10:06) Medication List - Last Reconciled 11/07/23 by Cathleen Feliciano RN aspirin (Adult Low Dose Aspirin) 81 mg PO DAILY atorvastatin 80 mg PO DAILY 90 days clobetasol 0.05% 1 appl topical BID 2 weeks docusate sodium (Stool Softener) 100 mg PO DAILY famotidine (Pepcid AC) 20 mg PO BID lisinopril 40 mg PO DAILY 90 days metoprolol tartrate 50 mg PO BID 90 days syringe with needle (BD Luer-Deyanira Syringe) USE TWICE A WEEK DIRECTED testosterone cypionate 50 mg (0.25 mL) IM QWEEK torsemide 20 mg PO DAILY warfarin 5 mg See Protocol PO DAILY 90 days Nursing Note NO CP,SOB,DIET/MED CHANGES,FALLS OR SX OF BLEEDING. CONTINUE PRESENT DOSE AND FOLLOW-UP IN 4 WEEKS. GOOD UNDERSTANDING OF DOSING INSTR. 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
== END 2023-11-07 10:16 | disposition home or self-care (01) ==
LOC: HO.ACS 10:02
PROVIDERS: PCP Family Medicine; Visit Provider Internal Medicine
DX: Z79.01 Long term (current) use of anticoagulants (principal)

== ENCOUNTER → 2023-11-07 10:02 | Outpatient (BNVA) | payer MEDICARE, SELFPAY | PROVIDERS: PCP Family Medicine; Visit Provider Internal Medicine | DX: I48.0 Paroxysmal atrial fibrillation (principal); Z79.01 Long term (current) use of anticoagulants; Z51.81 Encounter for therapeutic drug level monitoring | CPT/HCPCS: 85610; 99211 ==

== ENCOUNTER 2023-12-05 08:11 | Outpatient (AMB) | payer MEDICARE, SELFPAY ==
[2023-12-05 08:19] LABS: Prothrombin Time Whole Bld POC 28.6 sec (11.1-13.5); ~PT, ~INR - Anti Coag Clinic 2.4 (0.9-1.1)
--- NOTE | 2023-12-05 08:22 | MHC.OFFVISCO ---
Intake Intake Visit Reasons: Anticoagulation Allergies No Known Allergies [No Known Allergies*] Allergy (Verified 12/05/23 08:15) Medication List - Last Reconciled 12/05/23 by Cathleen Feliciano RN aspirin (Adult Low Dose Aspirin) 81 mg PO DAILY atorvastatin 80 mg PO DAILY 90 days clobetasol 0.05% 1 appl topical BID 2 weeks docusate sodium (Stool Softener) 100 mg PO DAILY famotidine (Pepcid AC) 20 mg PO BID lisinopril 40 mg PO DAILY 90 days metoprolol tartrate 50 mg PO BID 90 days syringe with needle (BD Luer-Deyanira Syringe) USE TWICE A WEEK DIRECTED testosterone cypionate 50 mg (0.25 mL) IM QWEEK torsemide 20 mg PO DAILY warfarin 5 mg See Protocol PO DAILY 90 days Nursing Note NO CP,SOB,DIET/MED CHANGES,FALLS OR SX OF BLEEDING. CONTINUE PRESENT DOSE AND FOLLOW-UP IN 4 WEEKS. GOOD UNDERSTANDING OF DOSING INSTR,. 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
== END 2023-12-05 08:24 | disposition home or self-care (01) ==
LOC: HO.ACS 08:11
PROVIDERS: PCP Family Medicine; Visit Provider Internal Medicine
DX: Z79.01 Long term (current) use of anticoagulants (principal)

== ENCOUNTER → 2023-12-05 08:11 | Outpatient (BNVA) | payer MEDICARE, SELFPAY | PROVIDERS: PCP Family Medicine; Visit Provider Internal Medicine | DX: I48.0 Paroxysmal atrial fibrillation (principal); Z79.01 Long term (current) use of anticoagulants; Z51.81 Encounter for therapeutic drug level monitoring | CPT/HCPCS: 85610; 99211 ==

== ENCOUNTER → 2023-12-05 08:54 | Outpatient (BNVA) | payer SELFPAY | PROVIDERS: PCP Family Medicine; Visit Provider Internal Medicine | DX: Z02.79 Encounter for issue of other medical certificate (principal) ==

== ENCOUNTER 2023-12-06 08:09 | Outpatient (REF) | payer MEDICARE, SELFPAY ==
[2023-12-06 11:13] LABS: MANUAL DIFF FLAG NO
[2023-12-06 11:37] LABS: Basophils Percent Auto 0.3 % (0-2); Eosinophils Absolute Auto 0.1 X10*3/uL (0.0-0.4); Eosinophils Percent Auto 1.7 % (0-4); Hemoglobin 18.3 g/dl (14.0-18.0); Imm Gran Abs Auto 0.04 X10*3/uL (0.00-0.03); Imm Gran Pct Auto 0.7 % (0.0-0.4); Lymphocytes Absolute Auto 1.4 X10*3/uL (1.2-4.9); Lymphocytes Percent Auto 23.6 % (20-40); Mean Corpuscular HGB Conc 32.8 g/dl (31.0-36.0); Mean Corpuscular Hemoglobin 30.7 pg (27.0-33.0); Mean Corpuscular Volume 93.5 fL (80.0-98.0); Mean Platelet Volume 10.8 fL (9.4-12.4); Monocytes Absolute Auto 0.5 X10*3/uL (0.1-1.2); Monocytes Percent Auto 8.1 % (2-11); Neutrophils Percent Auto 65.6 % (45-73); Platelet Count 147 X10*3/uL (160-400); Red Blood Count 5.97 X10*6/uL (4.60-5.80)
[2023-12-06 11:38] LABS: Appearance Urine Clear; Color Urine Yellow; Glucose Urine UA Negative (Negative); Leukocyte Esterase Urine Negative (Negative); Nitrite Urine Negative (Negative); PH 5.5 (5.0-9.0); Specific Gravity - Urine 1.025 (1.005-1.025); Urine Blood Negative (Negative); Urine Ketones Negative (Negative); Urine Protein Negative (Neg-Trace)
[2023-12-06 11:38] LABS: Hematocrit 55.8 % (42.0-52.0)
[2023-12-06 11:50] LABS: Alanine Aminotransferase 24 U/L (0-40); Alkaline Phosphatase 68 U/L (39-117); Anion Gap 14 (12-20); Aspartate Amino Transferase 23 U/L (5-37); Bilirubin Total 0.9 mg/dL (0.0-1.0); Blood Urea Nitrogen 21 mg/dL (9-16); Calcium 9.3 mg/dL (8.4-10.2); Carbon Dioxide 28 mmol/L (22-29); Chloride 103 mmol/L (96-108); Cholesterol 96 mg/dL (<200); Estimated Glomerular Filt Rate > 60; Glucose Fasting 98 mg/dL (60-99); HDL Cholesterol 31 mg/dL (>40); LDL Cholesterol Calculated 47 mg/dL (<100); Potassium 4.2 mmol/L (3.3-5.1); Sodium 141 mmol/L (135-145); Total Protein 7.1 g/dL (6.5-8.0); Triglycerides 93 mg/dL (<150)
[2023-12-06 12:01] LABS: Prostate Specific Antigen Scr 1.35 ng/mL (<0.05-4.0)
[2023-12-06 12:18] LABS: Creatinine Urine 196.93 mg/dL; Microalbum/Creatinine Ratio Ur 13.7 ug/mg cr (<30)
== END 2023-12-06 08:10 | disposition home or self-care (01) ==
LOC: HO.WFDLDS 08:09
PROVIDERS: Visit Provider Family Medicine
DX: Z00.00 Encounter for general adult medical examination without abnormal findings (principal); Z12.5 Encounter for screening for malignant neoplasm of prostate; I10 Essential (primary) hypertension
CPT/HCPCS: 36415; 80053; 80061; 81003; 82043; 82570; 84153; 84443; 85025

== ENCOUNTER 2023-12-24 10:49 | Outpatient (AMB) | payer MEDICARE, SELFPAY ==
[2023-12-24 10:59] VITALS: BP 128/74; PULSE 81; O2SAT 95; BMI 64.2
--- NOTE | 2023-12-24 10:59 | MHC.PC.OV ---
Vital Signs 12/24/23 10:59 Height 5 ft 9 in Weight 435 lb BMI 64.2 BP 128/74 Blood Pressure Location Lt brachial Position Sitting Pulse 81 Pulse Source Pulse Oximeter Pulse Oximetry (%) 95 Oxygen Delivery Method Room Air Intake Visit Reasons: Extended exam with f/u labs and health maint. Intake Note: Patient is here for extended exam and follow up on labs. Allergies No Known Allergies [No Known Allergies*] Allergy (Verified 12/24/23 11:01) Tobacco use date assessed: 12/24/23 Fall risk assessment: No Falls in past year Last assessed Fall Risk: 12/24/23 HPI Extended exam with f/u labs and health maint. HPI Details 68 y/o male presents for an extended exam with f/u labs and health maintenance. Labs were drawn 12/06/23. Reviewed labs with pt. RBC/Hgb/Hct elevated. Plt count mildly low at 147. Triglycerides 93. TC 96. LDL 47. HDL low at 31. He is on artovastatin 80mg daily. PHQ-9 today 8, positive for depression. He reports he has not used a medication for depression in the past. HPI Comments History of Present Illness Details Documentation assistance for Sin Mcdonnell MD, was provided by Jimbo Rizzo, Channel Installer on 12/24/2023 11:24 AM BRIAN. I, Dr. Mcdonnell, have read, observed, and verified documentation. REPLACED BY [facility] Medical History IBS (irritable bowel syndrome) BMI 60.0-69.9, adult Morbid obesity NORBERT (obstructive sleep apnea) Paroxysmal atrial fibrillation Morbid obesity Hypogonadism male Surgical History Hx of colonoscopy History of coronary artery stent placement History of permanent cardiac pacemaker placement Hx of ventral hernia repair Hx of laparoscopic gastric banding Hx of oral surgery Hx of appendectomy Family History Father Heart disease Mother Hypertension Brother Lung cancer Substance use disorder Social History Household Members Other:: lives with his mother and brother Housing: House Alcohol intake: never Patient Tobacco Use Status: Never used Tobacco e-Cigarette/Vaping Use: Never Used Second Hand Smoke Exposure: No service: No Current occupational status: employed (off for the summer) 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 1. Little interest or pleasure in doing things: nearly every day 2. Feeling down, depressed, or hopeless: nearly every day 3. Trouble falling or staying asleep, or sleeping too much: several days 4. Feeling tired or having little energy: several days 5. Poor appetite or overeating: not at all 6. Feeling bad about yourself - or that you are a failure or have let yourself or your family down: not at all 7. Trouble concentrating on things, such as reading the newspaper or watching television: not at all 8. Moving or speaking so slowly that other people could have noticed. Or the opposite - being so fidgety or restless that you have been moving around a lot more than usual: not at all 9. Thoughts that you would be better off or of hurting yourself in some way: not at all Total score: 8 Depression Screening Interpretation: Positive Depression Screening Done: Yes 04244 - PHQ-9 Billing: Yes Source: Developed by Drs. Emilio Patel, Karol Becker, Daniel Parikh and colleagues, with an educational macho from [employer]. Thrive Questionnaire Date Thrive assessed: 12/24/23 I am a: Patient What is your living situation today?: I have a steady place to live Within the past 12 months, did the food you bought not last and you didn't have the money to get more?: Never true Within the past 12 months, did you worry whether your food would run out before you got money to buy more?: Never true Do you have trouble paying for medicines?: No Do you have trouble getting transportation to medical appointments?: No Do you have trouble paying your heating and electricity bill?: No Do you have trouble taking care of your child, family member or friend?: No Do you have trouble with day-to-day activities such as bathing, preparing meals, shopping, managing finances, etc.?: No Are you currently unemployed and looking for a job?: No Are you interested in more education?: No THRIVE Score: 0 AUDIT C Alcohol Use Questionnaire (AUDIT-C) 1. How often do you have a drink containing alcohol?: Never 3. How often do you have six or more drinks on one occasion?: Never Total Score: 0 SHAYNA-7 AMB Questionnaire SHAYNA-7 Date SHAYNA - 7 assessed: 12/24/23 Feeling nervous, anxious, or on edge: 0 = Not at all Not being able to stop or control worryin = Not at all Worrying too much about different things: 1 = Several days Trouble relaxin = Not at all Being so restless that it is hard to sit still: 0 = Not at all Becoming easily annoyed or irritable: 1 = Several days Feeling afraid as if something awful might happen: 0 = Not at all Total SHAYNA-7 score (0-4 normal; 5-9 mild; 10-14 moderate; 15-21 severe): 2 Source: Developed by Drs. Emilio Patel, Karol Becker, Daniel Parikh and colleagues, with an educational macho from [employer]. SHAYNA-7 Assessment Billing SHAYNA-7 Assessment Tool: SHAYNA-7 Assessment 72270 Review of Systems Const Denies chills, Denies fatigue, Denies fever(s), Denies headache(s) and Denies weakness Eyes Denies change in vision ENT Denies dizziness, Denies headache(s), Denies hearing loss, Denies nasal congestion, Denies sinus pain, Denies sinus pressure and Denies sore throat Card Denies chest pain, Denies lightheadedness, Denies dyspnea and Denies other (palpitations) Resp Denies cough, Denies dyspnea and Denies wheezing GI Denies abdominal pain, Denies melena, Denies hematochezia, Denies change in bowel habits, Denies dyspepsia and Denies nausea Denies hematuria and Denies dysuria Musc Denies abnormal gait, Denies myalgias, Denies arthralgias, Denies numbness and Denies tingling Skin/Breast Denies rash, Denies unusual bruising and Denies wounds Neuro Denies abnormal gait, Denies dizziness, Denies headache(s), Denies memory loss, Denies numbness, Denies Sensory deficit (Neuro), Denies tingling and Denies weakness Psych Denies anxiety, Reports depression and Denies memory loss Endo Denies cold intolerance, Denies fatigue, Denies heat intolerance, Denies polydipsia and Denies polyuria Denis/Lymph Denies easy bleeding and Denies easy bruising Aller/Immun Denies wheezing Physical exam (Primary Care) Vital Signs: Last Vital Signs Pulse 81 12/24/23 10:59 BP 128/74 12/24/23 10:59 Pulse Ox 95 12/24/23 10:59 Oxygen Delivery Method Room Air 12/24/23 10:59 BMI result Body Mass Index 64.2 Tobacco/Smoking Status: Tobacco use Status Tobacco use date assessed 12/24/23 12/24/23 11:03 Patient Tobacco Use Status Never used Tobacco 12/24/23 11:01 e-Cigarette/Vaping Use Never Used 12/24/23 11:01 PHQ-9: PHQ-9 Score PHQ-9: Total score 8 12/24/23 11:19 Depression Screening Interpretation: Positive Thrive Assessment: Date of Thrive Assessment Date Thrive assessed 12/24/23 12/24/23 11:11 Const General: no acute distress, well developed, alert and awake Nutritional Appearance: obese morbidly obese Orientation/consciousness: patient oriented x3 HENMT Head: Yes normocephalic and Yes atraumatic Ears: hearing grossly normal bilaterally and TM's normal bilaterally General nose exam: Normal external nose present and Normal nares present Mouth: Normal oral and palatal mucosa present and moist mucous membranes Teeth and gingiva: dentition normal Throat: Yes posterior oropharynx normal Eyes General: appearance normal, both eyes and all related structures Pupils: Equal, round and reactive pupils present and Pupil accommodation reflex normal EOM: EOMs intact bilaterally Neck Neck: Yes normal visual inspection, Yes no lymphadenopathy and Yes trachea midline Thyroid: Thyroid normal Carotids: no bruits Lymphatic: no lymphadenopathy noted Chest Chest palpation & inspection: normal inspection of the chest Resp Effort & Inspection: normal respiratory effort Auscultation: clear to auscultation bilaterally Cardio Rate: regular rate Rhythm: regular rhythm Heart sounds: S1 normal heart sound present, S2 normal heart sound present, no gallops, no murmurs and no rubs Bruits: no abdominal aortic bruits and no carotid bruits GI Palpation (GI): No Abdominal aortic bruit present, Soft to palpation, nontender, No hepatosplenomegaly present and No Rebound tenderness present Auscultation: normal bowel sounds General: Yes no CVA tenderness Back/Spine/Pelvis Back: no CVA tenderness Cervical Spine: cervical ROM normal and No Cervical spine tenderness Thoracic/Lumbar Spine: thoraco-lumbar ROM normal, No pain with thoraco-lumbar ROM, No thoracic spinal tenderness and No lumbar spinal tenderness Skin Lesions: no lesions Rashes: no rashes Trauma: no lacerations or abrasions Wounds: no wounds Nails: normal Neuro General: patient oriented x3 Cranial nerves: Yes Equal, round and reactive pupils present Cognition (Neuro): normal cognition Gait exam (Neuro): Normal gait present Motor exam (neuro): 5/5 motor strength present throughout Sensory Exam: No Sensory deficit (Neuro) Deep tendon reflexes (DTR's): Right patellar reflex intensity grade: 2+ and Left patellar reflex intensity grade: 2+ Extrem General: Yes normal to inspection and No edema Psych Appearance: grossly normal Affect: normal affect Attitude: cooperative Thought process: Normal thought process present Assessment and Plan Assessment & Plan (1) Essential hypertension: Code(s): I10 - Essential (primary) hypertension Plan: Blood?pressure?is?controlled.??Goal?is?less?than?140/90 Continue?current?medication?regimen (2) Hyperlipidemia: Code(s): E78.5 - Hyperlipidemia, unspecified Plan: Lipids?are?controlled. Continue?current?medication (3) Low HDL (under 40): Code(s): E78.6 - Lipoprotein deficiency Plan: HDL?is?low Encouraged?exercise (4) BMI 60.0-69.9, adult: Code(s): Z68.44 - Body mass index [BMI] 60.0-69.9, adult Plan: BMI?significantly?high?and?patient?would?have?difficulty?with?weight?loss?through?diet?and?exercise Had?tried?Ozempic?in?the?past?but?cost?was?prohibitive Will?try?Wegovy (5) Depression: Code(s): F32.A - Depression, unspecified Plan: Mild?depression. Discussed?bupropion?but?patient?declines?for?now. I?let?him?know?that?he?can?tell?me?if?he?wants?to?consider?this?again. (6) Screening for prostate cancer: Code(s): Z12.5 - Encounter for screening for malignant neoplasm of prostate Plan: PSA?is?within?normal?limits (7) Screening for colon cancer: Code(s): Z12.11 - Encounter for screening for malignant neoplasm of colon Plan: Patient?is?due?for?5?year?repeat?colonoscopy. Referred?back?to?GI (8) Adult general medical exam: Code(s): Z00.00 - Encounter for general adult medical examination without abnormal findings Plan: 68-year-old?male?presents?for?an?extended?exam Medications: New semaglutide (weight loss) (Luis F) administer weeks 1 through 4 of therapy 0.25 mg (0.5 mL) subcut QWEEK 1 mL 1RF 8 days E66.01 - Morbid (severe) obesity due to excess calories, Z68.44 - Body mass index [BMI] 60.0-69.9, adult Coding Level of Care Code Est Pt Level 4 (17289) Diagnoses Essential hypertension I10 Hyperlipidemia E78.5 Low HDL (under 40) E78.6 BMI 60.0-69.9, adult Z68.44 Depression F32.A Screening for prostate cancer Z12.5 Screening for colon cancer Z12.11 Adult general medical exam Z00.00 Additional Codes SHAYNA-7 Assessment Billing - SHAYNA-7 Assessment Tool: SHAYNA-7 Assessment 24879 ([id number])
== END 2023-12-24 11:41 | disposition home or self-care (01) ==
PROVIDERS: PCP Family Medicine; Visit Provider Family Medicine
DX: I10 Essential (primary) hypertension (principal); E78.5 Hyperlipidemia, unspecified; Z68.44 Body mass index [BMI] 60.0-69.9, adult; E66.01 Morbid (severe) obesity due to excess calories; E78.6 Lipoprotein deficiency; F32.A Depression, unspecified; Z12.5 Encounter for screening for malignant neoplasm of prostate; Z12.11 Encounter for screening for malignant neoplasm of colon
CPT/HCPCS: 99214

== ENCOUNTER 2024-01-02 10:32 | Outpatient (AMB) | payer MEDICARE, SELFPAY ==
[2024-01-02 10:48] LABS: Prothrombin Time Whole Bld POC 28.1 sec (11.1-13.5); ~PT, ~INR - Anti Coag Clinic 2.3 (0.9-1.1)
--- NOTE | 2024-01-02 10:51 | MHC.OFFVISCO ---
Intake Intake Visit Reasons: Anticoagulation Allergies No Known Allergies [No Known Allergies*] Allergy (Verified 01/02/24 10:44) Medication List - Last Reconciled 01/02/24 by Cathleen Feliciano RN aspirin (Adult Low Dose Aspirin) 81 mg PO DAILY atorvastatin 80 mg PO DAILY 90 days clobetasol 0.05% 1 appl topical BID 2 weeks docusate sodium (Stool Softener) 100 mg PO DAILY famotidine (Pepcid AC) 20 mg PO BID lisinopril 40 mg PO DAILY 90 days metoprolol tartrate 50 mg PO BID 90 days semaglutide (weight loss) (Wegovy) 0.25 mg (0.5 mL) subcut QWEEK 8 days syringe with needle (BD Luer-Deyanira Syringe) USE TWICE A WEEK DIRECTED testosterone cypionate 50 mg (0.25 mL) IM QWEEK torsemide 20 mg PO DAILY warfarin 5 mg See Protocol PO DAILY 90 days Nursing Note NO CP,SOB,DIET/MED CHANGES,FALLS OR SX OFR BLEEDING. CONTINUE PRESENT DOSE AND FOLLOW-UP IN 4 WEEKS. GOOD UNDERSTANDING OF DOSING INSTR. 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
== END 2024-01-02 10:53 | disposition home or self-care (01) ==
LOC: HO.ACS 10:32
PROVIDERS: PCP Family Medicine; Visit Provider Internal Medicine
DX: Z79.01 Long term (current) use of anticoagulants (principal)

== ENCOUNTER → 2024-01-02 10:32 | Outpatient (BNVA) | payer MEDICARE, SELFPAY | PROVIDERS: PCP Family Medicine; Visit Provider Internal Medicine | DX: I48.0 Paroxysmal atrial fibrillation (principal); Z79.01 Long term (current) use of anticoagulants; Z51.81 Encounter for therapeutic drug level monitoring | CPT/HCPCS: 85610; 99211 ==

== ENCOUNTER 2024-01-29 07:54 | Outpatient (AMB) | payer MEDICARE, SELFPAY ==
[2024-01-29 07:59] VITALS: BP 138/80; PULSE 79; BMI 66.6
--- NOTE | 2024-01-29 07:59 | MHC.OFFVIS ---
Intake Vital Signs 01/29/24 07:59 Height 5 ft 9 in Weight 451 lb 4.58 oz BMI 66.6 BP 138/80 Blood Pressure Location Lt brachial Position Sitting Pulse 79 Pulse Source Pulse Oximeter Intake Visit Reasons: f/u hypogonadism-confirmed Intake Note: Patient presents today for Hypogonadism follow up. 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 Currently on intramuscular 50 mg every week. He was feeling the change after a week. He still uses CPAP machine. His libido is okay but his still having issues with erection. His weight is stable. His other PMH is AFib on Coumadin, CAD, s/p stent, Morbid Obesity, s/p Lap Band, NORBERT on CPAP, PPM, h/o PE, HTN, dyslipidemia. 07/12/2020 Hemoglobin 17.4 grams/deciliter Hematocrit 53 % 06/22/2020 Bioavailable testosterone 543 ng per dL range 110 to 575 Total testosterone 157 ng per DL range 250 to 1100 Free testosterone 212 pg per mL range 35-155 Sex hormone binding globulin 11, range 19 to 76 mmol/l Total estrogen 263 pg per ml range 40 to 115 Estradiol 37 pg per ml range 8 to 35 Ocassional urine sream iinteruption but no worse . Sees CPAP Laboratory Tests 04/01/21 04/01/21 08:10 08:10 Albumin 4.1 Testosterone Level 650 Total Testosterone 578 Fr Testosterone Di adam 143.3 Free Testoster w S HBG 166.1 Bioavail Testoster one 312.7 Sex Hormone Bind G lob 16 L Laboratory Tests 06/22/20 09/25/20 09/25/20 14:13 08:15 08:15 Testosterone Level 125 L Total Testosterone 857, SEE ABOVE 127 L Fr Testosterone Di adam 30.1 L Bioavail Testoster one 543.3 43.9 L 11/20/20 11/20/20 01/14/21 07:33 07:33 08:15 Testosterone Level 430 Total Testosterone 482 Fr Testosterone Di adam 121.5 56.4 Bioavail Testoster one 235.1 01/14/21 08:15 Testosterone Level Total Testosterone Fr Testosterone Di adam Bioavail Testoster one 109.9 L Laboratory Tests 11/20/20 01/14/21 01/14/21 07:33 08:15 08:15 Hgb 15.4 Hct 47.1 AST ALT Albumin Triglycerides Cholesterol LDL Cholesterol, C alc HDL Cholesterol Total PSA 1.57 TSH Testosterone Level Total Testosterone 294 Fr Testosterone Di adam 56.4 Free Testoster w S HBG Bioavail Testoster one Sex Hormone Bind G lob 01/14/21 01/14/21 08:15 08:15 Hgb Hct AST 20 ALT 25 Albumin 4.2 Triglycerides 91 Cholesterol 108 LDL Cholesterol, C alc 55 HDL Cholesterol 35 D Total PSA TSH 1.51 Testosterone Level 291 Total Testosterone Fr Testosterone Di adam Free Testoster w S HBG 57.1 Bioavail Testoster one 109.9 L Sex Hormone Bind G lob 19 L More recently, his hemoglobin and hematocrit increased PFSH Medical History IBS (irritable bowel syndrome) BMI 60.0-69.9, adult Morbid obesity NORBERT (obstructive sleep apnea) Paroxysmal atrial fibrillation Morbid obesity Hypogonadism male Surgical History Hx of colonoscopy History of coronary artery stent placement History of permanent cardiac pacemaker placement Hx of ventral hernia repair Hx of laparoscopic gastric banding Hx of oral surgery Hx of appendectomy Family History Father Heart disease Mother Hypertension Brother Lung cancer Substance use disorder Social History Household Members Other:: lives with his mother and brother Housing: House Alcohol intake: never Patient Tobacco Use Status: Never used Tobacco e-Cigarette/Vaping Use: Never Used Second Hand Smoke Exposure: No service: No Current occupational status: employed (off for the summer) 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 His hemoglobin and hematocrit have increased and hematocrit > 55 Plan is to hold the testosterone for now and have the patient seek a hematology consult to rule out other causes of polycythemia. Assuming clearance from Hematology, then can reinitiate testosterone with close following of hematocrit. Considering patient's other comorbidities, including atrial fibrillation and morbid obesity, the risk of testosterone therapy may outweigh its benefits this patient does not experience much benefit even when testosterone levels were normal range. He is also going to think about whether he wants to reinitiate testosterone in the future. Other option may be to initiate erectile dysfunction agent this can be done by the patient's primary care provider Coding Level of Care Code Est Pt Level 3 (22947) Diagnoses Hypogonadism male E29.1
== END 2024-01-29 08:24 | disposition home or self-care (01) ==
PROVIDERS: PCP Family Medicine; Visit Provider Internal Medicine Endocrinology, Diabetes & Metabolism
DX: E29.1 Testicular hypofunction (principal)
CPT/HCPCS: 99213

== ENCOUNTER → 2024-01-29 07:54 | Outpatient (BNVA) | payer MEDICARE, SELFPAY | PROVIDERS: Visit Provider Internal Medicine Endocrinology, Diabetes & Metabolism | DX: E29.1 Testicular hypofunction (principal); I48.0 Paroxysmal atrial fibrillation; Z79.01 Long term (current) use of anticoagulants; Z51.81 Encounter for therapeutic drug level monitoring | CPT/HCPCS: 85610; 99211; 99212 ==

== ENCOUNTER 2024-01-29 09:04 | Outpatient (AMB) | payer MEDICARE, SELFPAY ==
[2024-01-29 09:16] LABS: Prothrombin Time Whole Bld POC 30.3 sec (11.1-13.5); ~PT, ~INR - Anti Coag Clinic 2.5 (0.9-1.1)
--- NOTE | 2024-01-29 09:19 | MHC.OFFVISCO ---
Intake Intake Visit Reasons: Anticoagulation Allergies No Known Allergies [No Known Allergies*] Allergy (Verified 01/29/24 09:09) Medication List - Last Reconciled 01/29/24 by Abbi Lehman RN aspirin (Adult Low Dose Aspirin) 81 mg PO DAILY atorvastatin 80 mg PO DAILY 90 days clobetasol 0.05% 1 appl topical BID 2 weeks docusate sodium (Stool Softener) 100 mg PO DAILY famotidine (Pepcid AC) 20 mg PO BID lisinopril 40 mg PO DAILY 90 days metoprolol tartrate 50 mg PO BID 90 days semaglutide (weight loss) (Wegovy) 0.25 mg (0.5 mL) subcut QWEEK 8 days syringe with needle (BD Luer-Deyanira Syringe) USE TWICE A WEEK DIRECTED testosterone cypionate 50 mg (0.25 mL) IM QWEEK torsemide 20 mg PO DAILY warfarin 5 mg See Protocol PO DAILY 90 days Nursing Note Amb to [facility] , noted some SOB with walking from Lab waiting room to clinic, improved once seated through visit pt sts he hasn't taken his Torsemide in a couple days as he has had a lot of things to serena including MD alvarenga this am and ACS visit strongly encouraged to take the torsemide daily Medications and supplements reviewed pt not taking Wegozy as insurance not covering and sts Dr Marroquin put the testosterone on hold until new bloodwork No other changes in health, diet, medications, or supplements Denies any unusual signs and symptoms of bruising, bleeding Denies any new Chest pain,unusual SOB, or clotting INR: 2.5 in therapeutic range Nutritional guidance given: balance greens and reds in diet Dose: continue usual dosing;2.5mg x 2 days and 5mg x 5 days F/U INR: 4 weeks Patient verbalizes understanding of instructions given with accurate read back/ teach back of dosing Anti-Coag Initial Assessment Social Hx Patient Tobacco Use Status: Never used Tobacco alcohol intake: never Coding Level of Care Code Est Patient Level 1 Diagnoses Current use of anticoagulant therapy Z79.01 Time Spent (min) 15 Assessment & Plan Assessment & Plan (1) Current use of anticoagulant therapy: Code(s): Z79.01 - skilled nursing (current) use of anticoagulants Category: Medical
== END 2024-01-29 09:29 | disposition home or self-care (01) ==
LOC: HO.ACS 09:04
PROVIDERS: PCP Family Medicine; Visit Provider Internal Medicine
DX: Z79.01 Long term (current) use of anticoagulants (principal)

== ENCOUNTER → 2024-02-27 08:10 | Outpatient (BNVA) | payer MEDICARE, SELFPAY | PROVIDERS: PCP Family Medicine; Visit Provider Internal Medicine ==

== ENCOUNTER 2024-02-27 10:30 | Outpatient (REF) | payer MEDICARE, SELFPAY ==
[2024-02-27 11:39] LABS: INTERNATIONAL NORM RATIO 1.8 (0.9-1.1); Prothrombin Time 22.1 SEC (11.1-13.3)
== END 2024-02-27 10:31 | disposition home or self-care (01) ==
LOC: HO.WFDLDS 10:30
PROVIDERS: Visit Provider Internal Medicine
DX: Z79.01 Long term (current) use of anticoagulants (principal)
CPT/HCPCS: 36415; 85610

== ENCOUNTER 2024-03-03 10:32 | Outpatient (AMB) | payer MEDICARE, SELFPAY ==
[2024-03-03 10:37] VITALS: BP 122/64; PULSE 89; O2SAT 95; BMI 64.5
--- NOTE | 2024-03-03 10:37 | MHC.OFFVIS ---
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 Patient Coordinator Front Desk: Patient Coordinator Front Desk offered & declined Accompanied by: Self / Same As Patient Allergies No Known Allergies [No Known Allergies*] Allergy (Verified 03/03/24 11:02) Medication List - Last Reconciled 03/03/24 by Jeremi Barry MD aspirin (Adult Low Dose Aspirin) 81 mg PO DAILY atorvastatin 80 mg PO DAILY 90 days clobetasol 0.05% 1 appl topical BID 2 weeks docusate sodium (Stool Softener) 100 mg PO DAILY famotidine (Pepcid AC) 20 mg PO BID lisinopril 40 mg PO DAILY 90 days metoprolol tartrate 50 mg PO BID 90 days semaglutide (weight loss) (Wegovy) 0.25 mg (0.5 mL) subcut QWEEK 8 days syringe with needle (BD Luer-Deyanira Syringe) USE TWICE A WEEK DIRECTED testosterone cypionate 50 mg (0.25 mL) IM QWEEK torsemide 20 mg PO DAILY warfarin 5 mg See Protocol PO DAILY 90 days Do you need a note to return to daycare/school/sports/work: No HPI HPI norbert: Details: 69 YEARS OLD GENTLEMAN WITH SUPER MORBID OBESITY, COMES FOR FOLLOW-UP AFTER 6 MONTHS. 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 HE USES CPAP VERY REGULARLY EVERY NIGHT, UP TO ABOUT 9 HOURS PER NIGHT. HE ADMITS THAT HE WOULD NOT BE ABLE TO SLEEP WITHOUT THE CPAP ANYWAY. HE HAS NO ISSUES WITH THE CPAP MASK OR CPAP MACHINE AT THIS TIME. HE IS MORBIDLY OBESE, AND PART OF HIS OBESITY IS DUE TO FLUID. RETENTION IN THE LOWER EXTREMITIES HE HAS LOST SOME WEIGHT SINCE HIS LAST VISIT. HE DENIES ANY RESPIRATORY ISSUES EXCEPT THAT HE GETS SHORT OF BREATH WHEN HE WALKS UP HILL OR CLIMBS A FEW STEPS. [facility] Medical History IBS (irritable bowel syndrome) BMI 60.0-69.9, adult Morbid obesity NORBERT (obstructive sleep apnea) Paroxysmal atrial fibrillation Morbid obesity Hypogonadism male Surgical History Hx of colonoscopy History of coronary artery stent placement History of permanent cardiac pacemaker placement Hx of ventral hernia repair Hx of laparoscopic gastric banding Hx of oral surgery Hx of appendectomy Family History Father Heart disease Mother Hypertension Brother Lung cancer Substance use disorder Social History (Updated 03/03/24 @ 10:47 by Jeimy Guidry LPN) Household Members Other:: lives with his mother and brother Housing: House Alcohol intake: never Patient Tobacco Use Status: Never used Tobacco e-Cigarette/Vaping Use: Never Used Second Hand Smoke Exposure: No service: No Current occupational status: employed 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 Current occupational exposures/hazards: No Cognitive needs: No Hearing needs: No Vision needs: Yes (Glasses) Review of Systems Const All systems reviewed & are unremarkable except as noted in HPI and below Eyes Reports no additional complaints ENT Reports no additional complaints Card Denies chest pain and Reports irregular heart rhythm (Paroxysmal atrial fib) Resp Reports as per HPI GI Reports other (He has a huge belly with protuberant abdominal wall.) Reports no additional complaints Musc Reports no additional complaints Skin/Breast Reports system reviewed and no additional complaints, except as documented Neuro Reports no additional complaints Psych Reports no additional complaints Physical Exam Vital Signs: Last Vital Signs Pulse 89 03/03/24 10:37 BP 122/64 03/03/24 10:37 Pulse Ox 95 03/03/24 10:37 Oxygen Delivery Method Room Air 03/03/24 10:37 BMI result Body Mass Index 64.5 Const Other: He is a huge man, BMI 66 General: comfortable, no acute distress, alert and awake Orientation/consciousness: patient oriented x3 HEENT Head: Yes normal to inspection General nose exam: No nasal polyps present and No nasal discharge present Face and sinus: Yes sinuses nontender Mouth: oropharynx normal (Hard to examine and oropharynx is very crowded) Throat: Yes posterior oropharynx normal Eyes General: appearance normal, both eyes and all related structures Neck Other: He used Agatha and obese neck Neck: Yes no lymphadenopathy, Yes trachea midline and Yes no JVD Thyroid: Thyroid normal Chest Chest palpation & inspection: normal inspection of the chest, normal palpation of entire chest wall and no tenderness Resp Other: Percussion note is not perceptible due to very thick chest wall. Breath sounds are very distant especially over the basilar areas. But no adventitious sounds are heard. Cardio Palpation: PMI not normal (Not palpable) Rate: regular rate Rhythm: regular rhythm Heart sounds: no gallops and no murmurs GI Palpation (GI): Soft to palpation, Tenderness to palpation present (GI), No hepatosplenomegaly present, Palpable mass present and Other GI palpation findings present (Abdomen is very protuberant) Auscultation: normal bowel sounds Back/Spine/Pelvis Thoracic/Lumbar Spine: thoracic and lumbar spine normal to inspection and thoraco-lumbar ROM limited Skin General skin exam: no rashes or lesions noted Neuro General: patient oriented x3 and no focal motor deficits Cranial nerves: Yes CN's II-XII intact bilaterally Extrem General: Yes normal to inspection, Yes no calf tenderness and Yes edema (Chronic stasis edema of the legs) Psych Appearance: grossly normal and well kempt Speech and movement: Normal speech and movement present Results Reviewed Results Reviewed: Compliance report for the last 30 nights shows that he has used 30/30 nights,. 100% Average use it per night 9 hours 14 minutes. Pressure used mostly 14-16 cm. Residual AHI 2.1 Assessment & Plan Assessment & Plan (1) Morbid obesity: Comment: Continues to have super morbid obesity, BMI = 64.6 There is no potential for losing weight. Code(s): E66.01 - Morbid (severe) obesity due to excess calories Category: Medical Plan: Talked about the weight and in his case there is no potential to lose weight (2) NORBERT (obstructive sleep apnea): Comment: KNOWN CASE OF SEVERE OBSTRUCTIVE SLEEP APNEA. HE IS A REGULAR USER OF CPAP AT NIGHT AND USES, FOR 8-10 HOURS EVERY NIGHT. HE ADMITS THAT HE CANNOT ACTUALLY SLEEP WITHOUT THE CPAP. HE HAS THE NEW CPAP DEVICE AND IS GETTING SUPPLIES ON TIME. Code(s): G47.33 - Obstructive sleep apnea (adult) (pediatric) Category: Medical Plan: Commended for good compliance and advised to continue using the CPAP regularly Coding Level of Care Code Est Pt Level 3 (24278) Diagnoses Morbid obesity E66.01 NORBERT (obstructive sleep apnea) G47.33
== END 2024-03-03 11:04 | disposition home or self-care (01) ==
PROVIDERS: PCP Family Medicine; Visit Provider Internal Medicine
DX: E66.01 Morbid (severe) obesity due to excess calories (principal); G47.33 Obstructive sleep apnea (adult) (pediatric)
CPT/HCPCS: 99213

== ENCOUNTER → 2024-03-03 10:32 | Outpatient (BNVA) | payer MEDICARE, SELFPAY | PROVIDERS: PCP Family Medicine; Visit Provider Internal Medicine | DX: G47.33 Obstructive sleep apnea (adult) (pediatric) (principal); E66.01 Morbid (severe) obesity due to excess calories; Z68.44 Body mass index [BMI] 60.0-69.9, adult | CPT/HCPCS: 99212 ==

== ENCOUNTER 2024-03-07 10:26 | Outpatient (REF) | payer MEDICARE, SELFPAY ==
[2024-03-07 14:31] LABS: INTERNATIONAL NORM RATIO 1.6 (0.9-1.1)
== END 2024-03-07 10:27 | disposition home or self-care (01) ==
LOC: HO.WFDLDS 10:26
PROVIDERS: Visit Provider Family Medicine
DX: Z79.01 Long term (current) use of anticoagulants (principal)
CPT/HCPCS: 36415; 85610

== ENCOUNTER 2024-03-13 10:35 | Outpatient (REF) | payer MEDICARE, SELFPAY ==
[2024-03-13 14:57] LABS: INTERNATIONAL NORM RATIO 2.1 (0.9-1.1); Prothrombin Time 25.4 SEC (11.1-13.3)
== END 2024-03-13 10:36 | disposition home or self-care (01) ==
LOC: HO.WFDLDS 10:35
PROVIDERS: Visit Provider Family Medicine
DX: I48.0 Paroxysmal atrial fibrillation (principal)
CPT/HCPCS: 36415; 85610

== ENCOUNTER → 2024-03-17 12:06 | Outpatient (BNVA) | payer MEDICARE, SELFPAY | PROVIDERS: PCP Family Medicine; Visit Provider Internal Medicine ==

== ENCOUNTER 2024-03-31 08:48 | Outpatient (REF) | payer MEDICARE, SELFPAY ==
[2024-03-31 11:41] LABS: INTERNATIONAL NORM RATIO 2.3 (0.9-1.1); Prothrombin Time 28.1 SEC (11.1-13.3)
== END 2024-03-31 08:49 | disposition home or self-care (01) ==
LOC: HO.WFDLDS 08:48
PROVIDERS: Visit Provider Internal Medicine
DX: Z79.01 Long term (current) use of anticoagulants (principal)
CPT/HCPCS: 36415; 85610

== ENCOUNTER 2024-04-07 08:17 | Outpatient (AMB) | payer MEDICARE, SELFPAY ==
[2024-04-07 08:28] VITALS: BP 116/84; PULSE 98; RESP 16; TEMP 36.4; O2SAT 99; BMI 63.8
--- NOTE | 2024-04-07 08:28 | MHC.PC.OV ---
Vital Signs 04/07/24 08:28 Height 5 ft 9 in Weight 432 lb 2 oz BMI 63.8 BP 116/84 Blood Pressure Location Rt brachial Position Sitting Respiration 16 Pulse 98 Pulse Source Pulse Oximeter Temp 97.6 F Temp Source Temporal Artery Scan Pulse Oximetry (%) 99 Oxygen Delivery Method Room Air Intake Visit Reasons: f/u chronic conditions Manager Telemetry Required: No Accompanied by: Self / Same As Patient Allergies No Known Allergies [No Known Allergies*] Allergy (Verified 04/07/24 08:33) Tobacco use date assessed: 12/24/23 Fall risk assessment: No Falls in past year Last assessed Fall Risk: 04/07/24 Dental Screening Dental Screen Date: 04/07/24 Did you have a dental visit in the last 12 months?: No Did you have a dental problem in the last 6 months where you did not have access to dental care?: No Was dental information given to patient?: Patient declined HPI f/u chronic conditions HPI Details Patient?presents?to?follow-up?hypertension?and?chronic?conditions He?is?taking?lisinopril?and?metoprolol Blood?pressure?116/84 Has?seen?pulmonology?and?stable?on?CPAP Has?seen?endocrinology?for?hypogonadism?and?was?on?testosterone?replacement?therapy. Pt notes he is no longer on testosterone as?his?cardiac rehabilitation program director?did?not?feel?the?benefits?outweigh?the?risks Not on Wegovy, Insurance denied [facility] Medical History IBS (irritable bowel syndrome) BMI 60.0-69.9, adult Morbid obesity NORBERT (obstructive sleep apnea) Paroxysmal atrial fibrillation Morbid obesity Hypogonadism male Surgical History Hx of colonoscopy History of coronary artery stent placement History of permanent cardiac pacemaker placement Hx of ventral hernia repair Hx of laparoscopic gastric banding Hx of oral surgery Hx of appendectomy Family History Father Heart disease Mother Hypertension Brother Lung cancer Substance use disorder Social History Household Members Other:: lives with his mother and brother Housing: House Alcohol intake: never Patient Tobacco Use Status: Never used Tobacco e-Cigarette/Vaping Use: Never Used Second Hand Smoke Exposure: No service: No Current occupational status: employed 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 Emilio Patel, Karol Bekcer, Daniel Parikh and colleagues, with an educational macho from [employer]. Review of Systems Const Denies chills, Denies fatigue, Denies fever(s), Denies headache(s) and Denies weakness ENT Denies dizziness and Denies headache(s) Card Denies chest pain, Denies lightheadedness, Denies dyspnea and Denies other (Palpitations) Resp Denies cough, Denies dyspnea, Denies wheezing and Denies other ( shortness of breath) Musc Denies numbness and Denies tingling Neuro Denies dizziness, Denies headache(s), Denies numbness, Denies tingling, Denies paresthesias and Denies weakness Psych Denies anxiety and Denies depression Endo Denies fatigue Aller/Immun Denies wheezing Physical exam (Primary Care) Vital Signs: Last Vital Signs Temp 97.6 F 04/07/24 08:28 Pulse 98 04/07/24 08:28 Resp 16 04/07/24 08:28 BP 116/84 04/07/24 08:28 Pulse Ox 99 04/07/24 08:28 Oxygen Delivery Method Room Air 04/07/24 08:28 BMI result Body Mass Index 63.8 Tobacco/Smoking Status: Tobacco use Status Tobacco use date assessed 12/24/23 04/07/24 08:37 Patient Tobacco Use Status Never used Tobacco 04/07/24 08:37 e-Cigarette/Vaping Use Never Used 04/07/24 08:37 Thrive Assessment: Date of Thrive Assessment Date Thrive assessed 12/24/23 04/07/24 08:37 Const General: no acute distress and well developed Nutritional Appearance: obese morbidly obese Orientation/consciousness: patient oriented x3 HENMT Head: Yes normocephalic and Yes atraumatic Eyes General: appearance normal, both eyes and all related structures Pupils: Equal, round and reactive pupils present EOM: EOMs intact bilaterally Resp Effort & Inspection: normal respiratory effort Auscultation: clear to auscultation bilaterally Cardio Rate: regular rate Rhythm: regular rhythm Heart sounds: S1 normal heart sound present, S2 normal heart sound present, no gallops, no murmurs and no rubs Neuro General: patient oriented x3 and gait normal Cranial nerves: Yes Equal, round and reactive pupils present Psych Affect: normal affect Assessment and Plan Assessment & Plan (1) Essential hypertension: Code(s): I10 - Essential (primary) hypertension Plan: Blood?pressure?is?well?controlled.??Goal?is?less?than?140/90 Continue?current?medications (2) NORBERT (obstructive sleep apnea): Comment: KNOWN CASE OF SEVERE OBSTRUCTIVE SLEEP APNEA. HE IS A REGULAR USER OF CPAP AT NIGHT AND USES, FOR 8-10 HOURS EVERY NIGHT. HE ADMITS THAT HE CANNOT ACTUALLY SLEEP WITHOUT THE CPAP. HE HAS THE NEW CPAP DEVICE AND IS GETTING SUPPLIES ON TIME. Code(s): G47.33 - Obstructive sleep apnea (adult) (pediatric) Plan: Stable Continue?CPAP Follow-up?with?pulmonology?as?recommended (3) Hypogonadism male: Code(s): E29.1 - Testicular hypofunction Plan: Testosterone?was?discontinued (4) Paroxysmal atrial fibrillation: Code(s): I48.0 - Paroxysmal atrial fibrillation Plan: Normal?rate?and?rhythm?today Patient?has?pacer?and?is?on?warfarin Follow-up?with?Cardiology?as?recommended As?a?follow-up?appointment?but?I?do?not?have?a?recent?note?from?Cardiology?so?I?have?requested?this. (5) BMI 60.0-69.9, adult: Code(s): Z68.44 - Body mass index [BMI] 60.0-69.9, adult Plan: Had?tried?Wegovy?but?this?was?denied?by?his?insurance. Had?tried?Ozempic and?this?required?a?90?day?prescription?which?was?a?little?more?expensive?then?patient?could?afford?but?might?be?able?to?in?the?future.??He?will?let?me?know Medications: Discontinued testosterone cypionate Discontinued Reason: Doctor's Order 50 mg (0.25 mL) IM QWEEK 100 mL 3RF E29.1 - Testicular hypofunction Coding Level of Care Code Est Pt Level 4 (06032) Diagnoses Essential hypertension I10 NORBERT (obstructive sleep apnea) G47.33 Hypogonadism male E29.1 Paroxysmal atrial fibrillation I48.0 BMI 60.0-69.9, adult Z68.44
== END 2024-04-07 09:04 | disposition home or self-care (01) ==
PROVIDERS: PCP Family Medicine; Visit Provider Family Medicine
DX: I48.0 Paroxysmal atrial fibrillation (principal); Z68.44 Body mass index [BMI] 60.0-69.9, adult; E66.01 Morbid (severe) obesity due to excess calories; I10 Essential (primary) hypertension; G47.33 Obstructive sleep apnea (adult) (pediatric); E29.1 Testicular hypofunction
CPT/HCPCS: 99214

== ENCOUNTER 2024-04-21 09:15 | Outpatient (REF) | payer MEDICARE, SELFPAY ==
[2024-04-21 14:05] LABS: INTERNATIONAL NORM RATIO 2.2 (0.9-1.1); Prothrombin Time 26.7 SEC (11.1-13.3)
== END 2024-04-21 09:16 | disposition home or self-care (01) ==
LOC: HO.WFDLDS 09:15
PROVIDERS: Referring Provider Internal Medicine; Visit Provider Family Medicine
DX: I48.0 Paroxysmal atrial fibrillation (principal)
CPT/HCPCS: 36415; 85610; 85730

== ENCOUNTER 2024-05-19 08:28 | Outpatient (REF) | payer MEDICARE, SELFPAY ==
[2024-05-19 11:31] LABS: INTERNATIONAL NORM RATIO 1.6 (0.9-1.1)
== END 2024-05-19 08:29 | disposition home or self-care (01) ==
LOC: HO.WFDLDS 08:28
PROVIDERS: Visit Provider Internal Medicine
DX: Z79.01 Long term (current) use of anticoagulants (principal)
CPT/HCPCS: 36415; 85610

== ENCOUNTER 2024-05-26 09:09 | Outpatient (REF) | payer MEDICARE, SELFPAY | END 2024-05-26 09:10 | disposition home or self-care (01) | LOC: HO.WFDLDS 09:09 | PROVIDERS: Visit Provider Family Medicine | DX: Z13.89 Encounter for screening for other disorder (principal) ==

== ENCOUNTER 2024-05-26 09:17 | Outpatient (REF) | payer MEDICARE, SELFPAY | END 2024-05-26 09:18 | disposition home or self-care (01) | LOC: HO.LAB 09:17 | PROVIDERS: Visit Provider Internal Medicine | DX: Z13.89 Encounter for screening for other disorder (principal) ==

== ENCOUNTER 2024-05-26 09:22 | Outpatient (REF) | payer MEDICARE, SELFPAY ==
[2024-05-26 11:14] LABS: INTERNATIONAL NORM RATIO 3.2 (0.9-1.1); Prothrombin Time 39.1 SEC (11.1-13.3)
== END 2024-05-26 09:23 | disposition home or self-care (01) ==
LOC: HO.WFDLDS 09:22
PROVIDERS: Visit Provider Internal Medicine
DX: Z79.01 Long term (current) use of anticoagulants (principal)
CPT/HCPCS: 36415; 85610

== ENCOUNTER 2024-06-09 10:38 | Outpatient (REF) | payer MEDICARE, SELFPAY ==
[2024-06-09 14:34] LABS: MANUAL DIFF FLAG NO
[2024-06-09 14:44] LABS: Basophils Percent Auto 0.4 % (0-2); Eosinophils Absolute Auto 0.1 X10*3/uL (0.0-0.4); Hematocrit 39.7 % (42.0-52.0); Hemoglobin 13.1 g/dl (14.0-18.0); INTERNATIONAL NORM RATIO 2.3 (0.9-1.1); Imm Gran Abs Auto 0.02 X10*3/uL (0.00-0.03); Imm Gran Pct Auto 0.4 % (0.0-0.4); Lymphocytes Absolute Auto 1.3 X10*3/uL (1.2-4.9); Lymphocytes Percent Auto 25.3 % (20-40); Mean Corpuscular Hemoglobin 31.6 pg (27.0-33.0); Mean Corpuscular Volume 95.9 fL (80.0-98.0); Mean Platelet Volume 10.8 fL (9.4-12.4); Monocytes Absolute Auto 0.5 X10*3/uL (0.1-1.2); Monocytes Percent Auto 9.2 % (2-11); Neutrophils Absolute Auto 3.1 x10*3/uL (2.0-8.3); Neutrophils Percent Auto 62.7 % (45-73); Platelet Count 146 X10*3/uL (160-400); Prothrombin Time 28.6 SEC (11.1-13.3); Red Blood Count 4.14 X10*6/uL (4.60-5.80); Red Cell Distribution Width 15.5 % (11.0-16.0)
[2024-06-09 15:01] LABS: Anion Gap 11 (12-20); Blood Urea Nitrogen 24 mg/dL (9-16); Calcium 9.3 mg/dL (8.4-10.2); Carbon Dioxide 24 mmol/L (22-29); Chloride 110 mmol/L (96-108); Estimated Glomerular Filt Rate > 60; Glucose Random 118 mg/dL (60-115); Potassium 4.6 mmol/L (3.3-5.1); Sodium 140 mmol/L (135-145)
== END 2024-06-09 10:39 | disposition home or self-care (01) ==
LOC: HO.WFDLDS 10:38
PROVIDERS: Nurse Practitioner Family; Visit Provider Internal Medicine
DX: I10 Essential (primary) hypertension (principal); I25.10 Atherosclerotic heart disease of native coronary artery without angina pectoris; Z79.01 Long term (current) use of anticoagulants
CPT/HCPCS: 36415; 80048; 85025; 85610

== ENCOUNTER 2024-06-23 09:44 | Outpatient (REF) | payer MEDICARE, SELFPAY | END 2024-06-23 09:45 | disposition home or self-care (01) | LOC: HO.LAB 09:44 | PROVIDERS: Visit Provider Internal Medicine | DX: Z13.89 Encounter for screening for other disorder (principal) ==

== ENCOUNTER 2024-06-23 09:48 | Outpatient (REF) | payer MEDICARE, SELFPAY ==
[2024-06-23 11:51] LABS: INTERNATIONAL NORM RATIO 1.9 (0.9-1.1); Prothrombin Time 23.6 SEC (11.1-13.3)
== END 2024-06-23 09:49 | disposition home or self-care (01) ==
LOC: HO.WFDLDS 09:48
PROVIDERS: Visit Provider Internal Medicine
DX: I48.0 Paroxysmal atrial fibrillation (principal); Z79.01 Long term (current) use of anticoagulants
CPT/HCPCS: 36415; 85610

== ENCOUNTER 2024-07-07 09:27 | Outpatient (REF) | payer MEDICARE, SELFPAY ==
[2024-07-07 11:32] LABS: INTERNATIONAL NORM RATIO 1.7 (0.9-1.1); Prothrombin Time 20.3 SEC (10.9-12.4)
== END 2024-07-07 09:28 | disposition home or self-care (01) ==
LOC: HO.WFDLDS 09:27
PROVIDERS: Visit Provider Internal Medicine
DX: I48.0 Paroxysmal atrial fibrillation (principal); Z79.01 Long term (current) use of anticoagulants
CPT/HCPCS: 36415; 85610

== ENCOUNTER 2024-07-17 09:57 | Outpatient (REF) | payer MEDICARE, SELFPAY ==
[2024-07-17 11:32] LABS: INTERNATIONAL NORM RATIO 2.1 (0.9-1.1); Prothrombin Time 24.8 SEC (10.9-12.4)
== END 2024-07-17 09:58 | disposition home or self-care (01) ==
LOC: HO.WFDLDS 09:57
PROVIDERS: Referring Provider Family Medicine; Visit Provider Internal Medicine
DX: Z13.89 Encounter for screening for other disorder (principal)
CPT/HCPCS: 36415; 85610

== ENCOUNTER 2024-07-17 10:33 | Outpatient (REF) | payer MEDICARE, SELFPAY | END 2024-07-17 10:34 | disposition home or self-care (01) | LOC: HO.LAB 10:33 | PROVIDERS: Visit Provider Internal Medicine | DX: Z13.89 Encounter for screening for other disorder (principal) ==

== ENCOUNTER 2024-07-31 09:49 | Outpatient (REF) | payer MEDICARE, SELFPAY ==
[2024-07-31 11:31] LABS: INTERNATIONAL NORM RATIO 2.3 (0.9-1.1); Prothrombin Time 27.3 SEC (10.9-12.4)
== END 2024-07-31 09:50 | disposition home or self-care (01) ==
LOC: HO.WFDLDS 09:49
PROVIDERS: Visit Provider Internal Medicine
DX: I48.91 Unspecified atrial fibrillation (principal); Z79.01 Long term (current) use of anticoagulants
CPT/HCPCS: 36415; 85610

== ENCOUNTER 2024-08-11 09:46 | Outpatient (AMB) | payer MEDICARE, SELFPAY ==
--- NOTE | 2024-08-11 09:58 | A.OFFPC_ITS ---
Vital Signs 08/11/24 10:01 Height 5 ft 9 in Weight 432 lb 2 oz BMI 63.8 BP 123/66 Blood Pressure Location Lt brachial Position Sitting Respiration 16 Pulse 97 Pulse Source Pulse Oximeter Temp 98.1 F Temp Source Temporal Artery Scan Pulse Oximetry (%) 97 Oxygen Delivery Method Room Air Intake Visit Reasons: f/u hypertension Intake Note: f/u HTN Allergies No Known Allergies [No Known Allergies*] Allergy (Verified 08/11/24 09:59) Medication List - Last Reconciled 08/11/24 by Sin Mcdonnell MD aspirin (Adult Low Dose Aspirin) 81 mg PO DAILY atorvastatin 80 mg PO DAILY 90 days docusate sodium (Stool Softener) 100 mg PO DAILY famotidine (Pepcid AC) 20 mg PO BID lisinopril 10mg orally daily; metoprolol tartrate 50 mg PO BID 90 days syringe with needle (BD Luer-Deyanira Syringe) USE TWICE A WEEK DIRECTED warfarin 5 mg See Protocol PO DAILY 90 days Tobacco use date assessed: 12/24/23 Dental Screening Dental Screen Date: 04/07/24 HPI f/u hypertension HPI Details 69 y/o male presents to f/u hypertension . Blood pressure today 123/66, 97p. He is on lisinopril, metoprolol 50mg b.i.d. Continues taking torsemide. [facility] Medical History (Updated 07/17/24 @ 10:34 by Miri Tovar RN) Afib IBS (irritable bowel syndrome) BMI 60.0-69.9, adult Morbid obesity NORBERT (obstructive sleep apnea) Paroxysmal atrial fibrillation Morbid obesity Hypogonadism male Surgical History Hx of colonoscopy History of coronary artery stent placement History of permanent cardiac pacemaker placement Hx of ventral hernia repair Hx of laparoscopic gastric banding Hx of oral surgery Hx of appendectomy Family History Father Heart disease Mother Hypertension Brother Lung cancer Substance use disorder Social History Household Members Other:: lives with his mother and brother Housing: House Alcohol intake: never Patient Tobacco Use Status: Never used Tobacco e-Cigarette/Vaping Use: Never Used Second Hand Smoke Exposure: No service: No Current occupational status: employed 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 Emilio Patel, Karol Becker, Daniel Parikh and colleagues, with an educational macho from [employer]. Review of Systems Const Denies chills, Denies fatigue, Denies fever(s), Denies headache(s) and Denies weakness ENT Denies dizziness and Denies headache(s) Card Denies dyspnea Resp Denies cough, Denies dyspnea, Denies wheezing and Denies other (shortness of breath) Musc Denies numbness and Denies tingling Neuro Denies dizziness, Denies headache(s), Denies numbness, Denies tingling and Denies weakness Psych Denies anxiety and Denies depression Endo Denies fatigue Aller/Immun Denies wheezing Physical exam (Primary Care) Vital Signs: Last Vital Signs Temp 98.1 F 08/11/24 10:01 Pulse 97 08/11/24 10:01 Resp 16 08/11/24 10:01 BP 123/66 08/11/24 10:01 Pulse Ox 97 08/11/24 10:01 Oxygen Delivery Method Room Air 08/11/24 10:01 BMI result Body Mass Index 63.8 Tobacco/Smoking Status: Tobacco use Status Tobacco use date assessed 12/24/23 08/11/24 10:00 Patient Tobacco Use Status Never used Tobacco 08/11/24 10:00 e-Cigarette/Vaping Use Never Used 08/11/24 10:00 Thrive Assessment: Date of Thrive Assessment Date Thrive assessed 12/24/23 08/11/24 10:00 Const General: well developed; No acute distress Nutritional Appearance: well nourished Orientation/consciousness: patient oriented x3 HENMT Head: Yes normocephalic and Yes atraumatic Eyes General: appearance normal, both eyes and all related structures Pupils: Equal, round and reactive pupils present EOM: EOMs intact bilaterally Resp Effort & Inspection: normal respiratory effort Neuro General: patient oriented x3 and gait normal Cranial nerves: Yes Equal, round and reactive pupils present Psych Affect: normal affect Coding Level of Care Code Est Pt Level 3 (03035) Diagnoses Essential hypertension I10 Current use of anticoagulant therapy Z79.01 Paroxysmal atrial fibrillation I48.0 Assessment & Plan Assessment & Plan (1) Essential hypertension: Code(s): I10 - Essential (primary) hypertension Category: Medical Plan: Blood?pressure?is?well?controlled.??Goal?is?less?than?130/80 Continue?current?medications; metoprolol,?lisinopril?and?also?he?is?on?torsemide (2) Current use of anticoagulant therapy: Code(s): Z79.01 - penitentiary (current) use of anticoagulants Category: Medical Plan: Continue?warfarin Patient?is?interested?in?Eliquis?and?I?advised?he?discuss?with?his?computing consultant (3) Paroxysmal atrial fibrillation: Code(s): I48.0 - Paroxysmal atrial fibrillation Category: Medical Plan: Rate?controlled He?is?on?warfarin.??Can?discuss?Eliquis?with?Cardiology Follow-up?with?Cardiology?as?recommended Medications: New torsemide 20 mg PO DAILY 90 days 90 tabs 0RF
[2024-08-11 10:01] VITALS: BP 123/66; PULSE 97; RESP 16; TEMP 36.7; O2SAT 97; BMI 63.8
== END 2024-08-11 10:37 | disposition home or self-care (01) ==
PROVIDERS: PCP Family Medicine; Visit Provider Family Medicine
DX: I10 Essential (primary) hypertension (principal); Z79.01 Long term (current) use of anticoagulants; I48.0 Paroxysmal atrial fibrillation

== ENCOUNTER → 2024-08-11 09:46 | Outpatient (BNVA) | payer MEDICARE, SELFPAY | PROVIDERS: PCP Family Medicine; Visit Provider Family Medicine | DX: I10 Essential (primary) hypertension (principal); I48.0 Paroxysmal atrial fibrillation; Z79.01 Long term (current) use of anticoagulants | CPT/HCPCS: 99212 ==

== ENCOUNTER 2024-08-14 10:09 | Outpatient (REF) | payer MEDICARE, SELFPAY ==
[2024-08-14 11:20] LABS: INTERNATIONAL NORM RATIO 2.2 (0.9-1.1); Prothrombin Time 25.8 SEC (10.9-12.4)
== END 2024-08-14 10:10 | disposition home or self-care (01) ==
LOC: HO.WFDLDS 10:09
PROVIDERS: Referring Provider Internal Medicine; Visit Provider Family Medicine
DX: I48.91 Unspecified atrial fibrillation (principal)
CPT/HCPCS: 36415; 85610

== ENCOUNTER 2024-09-04 10:02 | Outpatient (REF) | payer MEDICARE, SELFPAY ==
[2024-09-04 11:29] LABS: INTERNATIONAL NORM RATIO 3.1 (0.9-1.1); Prothrombin Time 35.7 SEC (10.9-12.4)
== END 2024-09-04 10:03 | disposition home or self-care (01) ==
LOC: HO.WFDLDS 10:02
PROVIDERS: Referring Provider Family Medicine; Visit Provider Internal Medicine
DX: I48.0 Paroxysmal atrial fibrillation (principal)
CPT/HCPCS: 36415; 85610

== ENCOUNTER 2024-09-25 11:17 | Outpatient (REF) | payer MEDICARE, SELFPAY ==
[2024-09-25 14:32] LABS: Prothrombin Time 23.6 SEC (10.9-12.4)
== END 2024-09-25 11:18 | disposition home or self-care (01) ==
LOC: HO.WFDLDS 11:17
PROVIDERS: Visit Provider Internal Medicine
DX: I48.0 Paroxysmal atrial fibrillation (principal)
CPT/HCPCS: 36415; 85610

== ENCOUNTER → 2024-09-30 10:54 | Outpatient (BNVA) | payer MEDICARE, SELFPAY | PROVIDERS: PCP Family Medicine; Visit Provider Internal Medicine ==

== ENCOUNTER 2024-10-09 12:02 | Outpatient (REF) | payer MEDICARE, SELFPAY ==
[2024-10-09 14:50] LABS: INTERNATIONAL NORM RATIO 1.7 (0.9-1.1); Prothrombin Time 20.3 SEC (10.9-12.4)
== END 2024-10-09 12:03 | disposition home or self-care (01) ==
LOC: HO.WFDLDS 12:02
PROVIDERS: Visit Provider Internal Medicine
DX: Z79.01 Long term (current) use of anticoagulants (principal)
CPT/HCPCS: 36415; 85610

== ENCOUNTER → 2024-10-10 09:47 | Outpatient (BNVA) | payer MEDICARE, SELFPAY | PROVIDERS: PCP Family Medicine; Visit Provider Internal Medicine ==

== ENCOUNTER 2024-10-22 10:49 | Outpatient (AMB) | payer MEDICARE, SELFPAY ==
--- NOTE | 2024-10-22 11:06 | MHC.OFFVIS ---
Vital Signs 10/22/24 11:07 Height 5 ft 9 in Weight 422 lb 2.963 oz BMI 62.3 BP 118/72 Blood Pressure Location Lt radial Position Sitting Pulse 82 Pulse Source Pulse Oximeter Pulse Oximetry (%) 94 Oxygen Delivery Method Room Air Intake Visit Reasons: Obstructive sleep apnea Intake Note: pt is here for follow up of norbert, he is having an issue with post nasal drip going into his throat causing a cough. Allergies No Known Allergies [No Known Allergies*] Allergy (Verified 10/22/24 11:24) Medication List - Last Reconciled 10/22/24 by Jeremi Barry MD aspirin (Adult Low Dose Aspirin) 81 mg PO DAILY atorvastatin 80 mg PO DAILY 90 days docusate sodium (Stool Softener) 100 mg PO DAILY famotidine (Pepcid AC) 20 mg PO BID lisinopril 10mg orally daily; metoprolol tartrate 50 mg PO BID 90 days syringe with needle (BD Luer-Deyanira Syringe) USE TWICE A WEEK DIRECTED torsemide 20 mg PO DAILY 90 days warfarin 5 mg See Protocol PO DAILY 90 days Do you need a note to return to daycare/school/sports/work: No HPI HPI Obstructive sleep apnea: Details: AUGUSTO, is 69 years old gentleman, single, lives with his mother who is 93 years old . 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 He is a case of severe obstructive sleep apnea. It is well treated with the use of CPAP, which he uses every night for 8-9 hours. In fact he just can not sleep without the use of CPAP. He complains of cough especially at night, secondary to nasal congestion. Uses cough medicine,Delsyn 2 tsp at night and sometimes during the daytime. The cough seems to be due to nasal allergy, he does not want to use any no spray. They do not have humidification in the house. He gets short of breath when he goes up and down stairs but not at level ground when resting. Not able to lose weight except if he doubles up the does of his diuretic,torsemide . [facility] Medical History (Updated 10/22/24 @ 11:44 by Jeremi Barry MD) Afib IBS (irritable bowel syndrome) BMI 60.0-69.9, adult Morbid obesity NORBERT (obstructive sleep apnea) Paroxysmal atrial fibrillation Morbid obesity Hypogonadism male Surgical History Hx of colonoscopy History of coronary artery stent placement History of permanent cardiac pacemaker placement Hx of ventral hernia repair Hx of laparoscopic gastric banding Hx of oral surgery Hx of appendectomy Family History Father Heart disease Mother Hypertension Brother Lung cancer Substance use disorder Social History Household Members Other:: lives with his mother and brother Housing: House Alcohol intake: never Patient Tobacco Use Status: Never used Tobacco e-Cigarette/Vaping Use: Never Used Second Hand Smoke Exposure: No service: No Current occupational status: employed 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 Current occupational exposures/hazards: No Cognitive needs: No Hearing needs: No Vision needs: Yes (Glasses) Review of Systems Const All systems reviewed & are unremarkable except as noted in HPI and below Eyes Reports no additional complaints ENT Reports no additional complaints Card Denies chest pain and Reports irregular heart rhythm (Paroxysmal atrial fib) Resp Reports as per HPI GI Reports other (He has a huge belly with protuberant abdominal wall.) Reports no additional complaints Musc Reports no additional complaints Skin/Breast Reports system reviewed and no additional complaints, except as documented Neuro Reports no additional complaints Psych Reports no additional complaints Physical Exam Vital Signs: Last Vital Signs Pulse 82 10/22/24 11:07 BP 118/72 10/22/24 11:07 Pulse Ox 94 10/22/24 11:07 Oxygen Delivery Method Room Air 10/22/24 11:07 BMI result Body Mass Index 62.3 Const Other: He is a huge man, BMI 66 General: comfortable, no acute distress, alert and awake Orientation/consciousness: patient oriented x3 HEENT Head: Yes normal to inspection General nose exam: No nasal polyps present and No nasal discharge present Face and sinus: Yes sinuses nontender Mouth: oropharynx normal (Hard to examine and oropharynx is very crowded) Throat: Yes posterior oropharynx normal Eyes General: appearance normal, both eyes and all related structures Neck Other: He used Agatha and obese neck Neck: Yes no lymphadenopathy, Yes trachea midline and Yes no JVD Thyroid: Thyroid normal Chest Chest palpation & inspection: normal inspection of the chest, normal palpation of entire chest wall and no tenderness Resp Other: Percussion note is not perceptible due to very thick chest wall. Breath sounds are very distant especially over the basilar areas. But no adventitious sounds are heard. Cardio Palpation: PMI not normal (Not palpable) Rate: regular rate Rhythm: regular rhythm Heart sounds: no gallops and no murmurs GI Palpation (GI): Soft to palpation, Tenderness to palpation present (GI), No hepatosplenomegaly present, Palpable mass present and Other GI palpation findings present (Abdomen is very protuberant) Auscultation: normal bowel sounds Back/Spine/Pelvis Thoracic/Lumbar Spine: thoracic and lumbar spine normal to inspection and thoraco-lumbar ROM limited Skin General skin exam: no rashes or lesions noted Neuro General: patient oriented x3 and no focal motor deficits Cranial nerves: Yes CN's II-XII intact bilaterally Extrem General: Yes normal to inspection, Yes no calf tenderness and Yes edema (Chronic stasis edema of the legs , no ulcers ) Psych Appearance: grossly normal and well kempt Speech and movement: Normal speech and movement present Results Reviewed Results Reviewed: Compliance report for the last 30 nights is reviewed. He has used 30/30 nights, 100%. Average use it per night 9 hours 49 minutes. Pressure used is 12-13 cm. No significant air leak. Residual AHI 2.4 Assessment & Plan Assessment & Plan (1) Morbid obesity: Comment: Continues to have super morbid obesity, BMI = 62.3 His weight is down by 10-12 lb since his last visit and this is mainly because of, decreased edema of the legs. There is no potential for losing weight. Code(s): E66.01 - Morbid (severe) obesity due to excess calories Category: Medical Plan: Talked to him about the weight. There is no significant change that he can make in his lifestyle. Advised to continue using the diuretic therapy as advised by his architectural engineering teacher. (2) NORBERT (obstructive sleep apnea): Comment: KNOWN CASE OF SEVERE OBSTRUCTIVE SLEEP APNEA. HE IS A REGULAR USER OF CPAP AT NIGHT AND USES, FOR 8-10 HOURS EVERY NIGHT. HE ADMITS THAT HE CANNOT ACTUALLY SLEEP WITHOUT THE CPAP. HE HAS THE NEW CPAP DEVICE AND IS GETTING SUPPLIES ON TIME. Code(s): G47.33 - Obstructive sleep apnea (adult) (pediatric) Category: Medical Plan: Commended for very good compliance and encouraged to keep on using the CPAP every night and also during the daytime if needed. Coding Level of Care Code Est Pt Level 3 (04100) Diagnoses Morbid obesity E66.01 NORBERT (obstructive sleep apnea) G47.33
[2024-10-22 11:07] VITALS: BP 118/72; PULSE 82; O2SAT 94; BMI 62.3
== END 2024-10-22 11:40 | disposition home or self-care (01) ==
PROVIDERS: PCP Family Medicine; Visit Provider Internal Medicine
DX: E66.01 Morbid (severe) obesity due to excess calories (principal); G47.33 Obstructive sleep apnea (adult) (pediatric)
CPT/HCPCS: 99213

== ENCOUNTER → 2024-10-22 10:49 | Outpatient (BNVA) | payer MEDICARE, SELFPAY | PROVIDERS: PCP Family Medicine; Visit Provider Internal Medicine | DX: G47.33 Obstructive sleep apnea (adult) (pediatric) (principal); E66.01 Morbid (severe) obesity due to excess calories; Z68.44 Body mass index [BMI] 60.0-69.9, adult | CPT/HCPCS: 99212 ==

== ENCOUNTER 2024-10-23 10:12 | Outpatient (REF) | payer MEDICARE, SELFPAY ==
[2024-10-23 11:44] LABS: INTERNATIONAL NORM RATIO 2.3 (0.9-1.1); Prothrombin Time 26.9 SEC (10.9-12.4)
== END 2024-10-23 10:13 | disposition home or self-care (01) ==
LOC: HO.WFDLDS 10:12
PROVIDERS: Visit Provider Internal Medicine
DX: Z79.01 Long term (current) use of anticoagulants (principal)
CPT/HCPCS: 36415; 85610

== ENCOUNTER 2024-11-13 09:40 | Outpatient (REF) | payer MEDICARE, SELFPAY ==
[2024-11-13 11:31] LABS: INTERNATIONAL NORM RATIO 2.8 (0.9-1.1); Prothrombin Time 33.1 SEC (10.9-12.4)
== END 2024-11-13 09:41 | disposition home or self-care (01) ==
LOC: HO.WFDLDS 09:40
PROVIDERS: Visit Provider Internal Medicine
DX: Z79.01 Long term (current) use of anticoagulants (principal)
CPT/HCPCS: 36415; 85610

== ENCOUNTER → 2024-12-02 08:36 | Outpatient (BNVA) | payer SELFPAY | PROVIDERS: PCP Family Medicine; Visit Provider Physician Assistant Medical | DX: Z02.79 Encounter for issue of other medical certificate (principal) ==

== ENCOUNTER 2024-12-08 10:01 | Outpatient (REF) | payer MEDICARE, SELFPAY ==
[2024-12-08 11:12] LABS: MANUAL DIFF FLAG NO
[2024-12-08 11:22] LABS: Basophils Percent Auto 0.4 % (0-2); Eosinophils Absolute Auto 0.1 X10*3/uL (0.0-0.4); Eosinophils Percent Auto 2.1 % (0-4); Hematocrit 39.6 % (42.0-52.0); Hemoglobin 12.8 g/dl (14.0-18.0); Imm Gran Abs Auto 0.02 X10*3/uL (0.00-0.03); Imm Gran Pct Auto 0.4 % (0.0-0.4); Lymphocytes Absolute Auto 1.2 X10*3/uL (1.2-4.9); Mean Corpuscular HGB Conc 32.3 g/dl (31.0-36.0); Mean Corpuscular Hemoglobin 30.5 pg (27.0-33.0); Mean Corpuscular Volume 94.5 fL (80.0-98.0); Mean Platelet Volume 10.7 fL (9.4-12.4); Monocytes Absolute Auto 0.5 X10*3/uL (0.1-1.2); Neutrophils Absolute Auto 3.8 x10*3/uL (2.0-8.3); Neutrophils Percent Auto 68.1 % (45-73); Platelet Count 150 X10*3/uL (160-400); Red Blood Count 4.19 X10*6/uL (4.60-5.80); Red Cell Distribution Width 13.8 % (11.0-16.0); White Blood Count 5.6 X10*3/uL (4.8-10.8)
[2024-12-08 11:37] LABS: Prothrombin Time 13.8 SEC (10.9-12.4)
[2024-12-08 11:39] LABS: INTERNATIONAL NORM RATIO 1.2 (0.9-1.1)
[2024-12-08 12:01] LABS: Anion Gap 10 (12-20); Blood Urea Nitrogen 21 mg/dL (9-16); Calcium 8.8 mg/dL (8.4-10.2); Carbon Dioxide 25 mmol/L (22-29); Chloride 111 mmol/L (96-108); Estimated Glomerular Filt Rate > 60; Glucose Random 95 mg/dL (60-115); Potassium 4.6 mmol/L (3.3-5.1); Sodium 141 mmol/L (135-145)
== END 2024-12-08 10:02 | disposition home or self-care (01) ==
LOC: HO.WFDLDS 10:01
PROVIDERS: Student in an Organized Health Care Education/Training Program; Referring Provider Family Medicine; Visit Provider Internal Medicine
DX: Z01.810 Encounter for preprocedural cardiovascular examination (principal); R94.39 Abnormal result of other cardiovascular function study; I25.10 Atherosclerotic heart disease of native coronary artery without angina pectoris
CPT/HCPCS: 36415; 80048; 85025; 85610

== ENCOUNTER 2024-12-15 09:46 | Outpatient (REF) | payer MEDICARE, SELFPAY ==
[2024-12-15 12:02] LABS: INTERNATIONAL NORM RATIO 2.1 (0.9-1.1); Prothrombin Time 24.7 SEC (10.9-12.4)
== END 2024-12-15 09:47 | disposition home or self-care (01) ==
LOC: HO.WFDLDS 09:46
PROVIDERS: Visit Provider Internal Medicine
DX: I48.0 Paroxysmal atrial fibrillation (principal); Z79.01 Long term (current) use of anticoagulants
CPT/HCPCS: 36415; 85610

== ENCOUNTER 2024-12-19 10:24 | Outpatient (AMB) | payer MEDICARE, SELFPAY ==
--- NOTE | 2024-12-19 10:37 | A.OFFPC_ITS ---
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 Blood pressure today 128/70, 90p. He is on lisinopril 20mg, metoprolol 50mg b.i.d. [facility] Medical History (Updated 10/22/24 @ 11:44 by Jeremi Barry MD) Afib IBS (irritable bowel syndrome) BMI 60.0-69.9, adult Morbid obesity NORBERT (obstructive sleep apnea) Paroxysmal atrial fibrillation Morbid obesity Hypogonadism male Surgical History Hx of colonoscopy History of coronary artery stent placement History of permanent cardiac pacemaker placement Hx of ventral hernia repair Hx of laparoscopic gastric banding Hx of oral surgery Hx of appendectomy Family History Father Heart disease Mother Hypertension Brother Lung cancer Substance use disorder Social History Household Members Other:: lives with his mother and brother Housing: House Alcohol intake: never Patient Tobacco Use Status: Never used Tobacco e-Cigarette/Vaping Use: Never Used Second Hand Smoke Exposure: No service: No Current occupational status: employed 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 Emilio Patel, Karol Becker, Daniel Parikh and colleagues, with an educational macho from [employer]. Review of Systems Const Denies chills, Denies fatigue, Denies fever(s), Denies headache(s) and Denies weakness ENT Denies dizziness and Denies headache(s) Card Denies chest pain, Denies lightheadedness, Denies dyspnea and Denies other (Palpitations) Resp Denies cough, Denies dyspnea, Denies wheezing and Denies other ( shortness of breath) Musc Denies numbness and Denies tingling Neuro Denies dizziness, Denies headache(s), Denies numbness, Denies tingling, Denies paresthesias and Denies weakness Psych Denies anxiety and Denies depression Endo Denies fatigue Aller/Immun Denies wheezing Physical exam (Primary Care) Vital Signs: Last Vital Signs Temp 98.4 F 12/19/24 10:44 Pulse 90 12/19/24 10:44 Resp 12 12/19/24 10:44 BP 128/70 12/19/24 10:44 Pulse Ox 96 12/19/24 10:44 Oxygen Delivery Method Room Air 12/19/24 10:44 BMI result Body Mass Index 62.4 Tobacco/Smoking Status: Tobacco use Status Tobacco use date assessed 12/24/23 12/19/24 10:37 Patient Tobacco Use Status Never used Tobacco 12/19/24 10:37 e-Cigarette/Vaping Use Never Used 12/19/24 10:37 Thrive Assessment: Date of Thrive Assessment Date Thrive assessed 12/24/23 12/19/24 10:37 Const General: no acute distress and well developed Nutritional Appearance: obese morbidly obese Orientation/consciousness: patient oriented x3 HENMT Head: Yes normocephalic and Yes atraumatic Eyes General: appearance normal, both eyes and all related structures Pupils: Equal, round and reactive pupils present EOM: EOMs intact bilaterally Resp Effort & Inspection: normal respiratory effort Auscultation: clear to auscultation bilaterally Cardio Rate: regular rate Rhythm: regular rhythm Heart sounds: S1 normal heart sound present, S2 normal heart sound present, no gallops, no murmurs and no rubs Neuro General: patient oriented x3 and gait normal Cranial nerves: Yes Equal, round and reactive pupils present Psych Affect: normal affect Coding Level of Care Code Est Pt Level 4 (00832) Diagnoses Essential hypertension I10 Paroxysmal atrial fibrillation I48.0 Current use of anticoagulant therapy Z79.01 Assessment & Plan Assessment & Plan (1) Essential hypertension: Code(s): I10 - Essential (primary) hypertension Category: Medical Plan: Blood?pressure?is?controlled.??Goal?is?less?than?130/80 Continue?her?medication Patient?has?lost?some?weight?and?I?congratulated?him?this Continue?weight?loss (2) Paroxysmal atrial fibrillation: Code(s): I48.0 - Paroxysmal atrial fibrillation Category: Medical Plan: Patient?is?on?warfarin Stable (3) Current use of anticoagulant therapy: Code(s): 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 Panel Today I10 - Essential (primary) hypertension Medications: Refilled atorvastatin 80 mg PO DAILY 90 tabs 4RF 90 days
[2024-12-19 10:44] VITALS: BP 128/70; PULSE 90; RESP 12; TEMP 36.9; O2SAT 96; BMI 62.4
== END 2024-12-19 11:18 | disposition home or self-care (01) ==
PROVIDERS: PCP Family Medicine; Visit Provider Family Medicine
DX: I10 Essential (primary) hypertension (principal); I48.0 Paroxysmal atrial fibrillation; Z79.01 Long term (current) use of anticoagulants

== ENCOUNTER → 2024-12-19 10:24 | Outpatient (BNVA) | payer MEDICARE, SELFPAY | PROVIDERS: PCP Family Medicine; Visit Provider Family Medicine | DX: I10 Essential (primary) hypertension (principal); I48.0 Paroxysmal atrial fibrillation; Z79.01 Long term (current) use of anticoagulants | CPT/HCPCS: 99212 ==

== ENCOUNTER 2024-12-26 10:24 | Outpatient (REF) | payer MEDICARE, SELFPAY ==
[2024-12-26 15:00] LABS: INTERNATIONAL NORM RATIO 2.6 (0.9-1.1); Prothrombin Time 30.8 SEC (10.9-12.4)
[2024-12-26 17:28] LABS: Alanine Aminotransferase 42 U/L (0-40); Albumin Level 3.7 g/dL (3.5-5.0); Alkaline Phosphatase 97 U/L (39-117); Anion Gap 11 (12-20); Aspartate Amino Transferase 41 U/L (5-37); Bilirubin Total 0.4 mg/dL (0.0-1.0); Blood Urea Nitrogen 25 mg/dL (9-16); Calcium 8.9 mg/dL (8.4-10.2); Carbon Dioxide 24 mmol/L (22-29); Chloride 112 mmol/L (96-108); Estimated Glomerular Filt Rate > 60; Glucose Random 94 mg/dL (60-115); Potassium 4.6 mmol/L (3.3-5.1); Sodium 142 mmol/L (135-145); Total Protein 6.8 g/dL (6.5-8.0)
== END 2024-12-26 10:25 | disposition home or self-care (01) ==
LOC: HO.WFDLDS 10:24
PROVIDERS: Referring Provider Family Medicine; Visit Provider Internal Medicine
DX: I10 Essential (primary) hypertension (principal); Z79.01 Long term (current) use of anticoagulants; I48.0 Paroxysmal atrial fibrillation
CPT/HCPCS: 36415; 80053; 85610

== ENCOUNTER 2025-01-16 10:07 | Outpatient (REF) | payer MEDICARE, SELFPAY ==
[2025-01-16 11:37] LABS: INTERNATIONAL NORM RATIO 2.1 (0.9-1.1); Prothrombin Time 24.2 SEC (10.9-12.4)
[2025-01-16 14:01] LABS: Appearance Urine Clear; Color Urine Yellow; Glucose Urine UA Negative (Negative); Leukocyte Esterase Urine Trace (Negative); Nitrite Urine Negative (Negative); PH 6.5 (5.0-9.0); Specific Gravity - Urine 1.025 (1.005-1.025); UMIC TRIGGER UA YES; Urine Blood Negative (Negative); Urine Ketones Negative (Negative); Urine Protein Trace mg/dL (Neg-Trace)
[2025-01-16 14:06] LABS: Bacteria Urine None Seen (None Seen); RBC Urine 0-2 /HPF (0-2); Squamous Epithelial Cell Urine 0-2 /HPF (0-2); WBC Urine 0-5 /HPF (0-5)
[2025-01-16 15:03] LABS: Microalbum/Creatinine Ratio Ur 16.6 ug/mg cr (<30)
== END 2025-01-16 10:08 | disposition home or self-care (01) ==
LOC: HO.WFDLDS 10:07
PROVIDERS: Referring Provider Family Medicine; Visit Provider Internal Medicine
DX: I10 Essential (primary) hypertension (principal); Z79.01 Long term (current) use of anticoagulants
CPT/HCPCS: 36415; 81001; 81003; 82043; 82570; 85610

== ENCOUNTER 2025-02-05 09:37 | Outpatient (REF) | payer MEDICARE, SELFPAY ==
[2025-02-05 11:29] LABS: INTERNATIONAL NORM RATIO 2.1 (0.9-1.1); Prothrombin Time 24.3 SEC (10.9-12.4)
== END 2025-02-05 09:38 | disposition home or self-care (01) ==
LOC: HO.WFDLDS 09:37
PROVIDERS: Visit Provider Internal Medicine Medical Oncology
DX: I48.0 Paroxysmal atrial fibrillation (principal); Z79.01 Long term (current) use of anticoagulants; Z51.81 Encounter for therapeutic drug level monitoring
CPT/HCPCS: 36415; 85610

== ENCOUNTER → 2025-02-06 11:33 | Outpatient (BNVA) | payer MEDICARE, SELFPAY | PROVIDERS: PCP Family Medicine; Visit Provider Internal Medicine Medical Oncology | DX: Z13.89 Encounter for screening for other disorder (principal) ==

== ENCOUNTER 2025-03-06 09:54 | Outpatient (REF) | payer MEDICARE, SELFPAY ==
[2025-03-06 11:53] LABS: INTERNATIONAL NORM RATIO 2.2 (0.9-1.1); Prothrombin Time 24.7 SEC (10.9-12.4)
== END 2025-03-06 09:55 | disposition home or self-care (01) ==
LOC: HO.WFDLDS 09:54
PROVIDERS: Visit Provider Internal Medicine Medical Oncology
DX: Z79.01 Long term (current) use of anticoagulants (principal)
CPT/HCPCS: 36415; 85610

== ENCOUNTER 2025-04-02 08:01 | Outpatient (AMB) | payer MEDICARE, SELFPAY ==
--- NOTE | 2025-04-02 08:10 | MHC.OFFVISCO ---
Intake Intake Visit Reasons: Anticoagulation Allergies No Known Allergies (No Known Allergies*) Allergy (Verified 04/02/25 08:04) Medication List - Last Reconciled 04/02/25 by Abbi Bansal RN aspirin (Adult Low Dose Aspirin) 81 mg PO DAILY atorvastatin 80 mg PO DAILY 90 days lisinopril 20 mg PO DAILY metoprolol tartrate 50 mg PO BID 90 days [OMEGA XL 1 TAB IN AM 1 TAB IN PM FOR JOINT HEALTH TO RELEIVE PAIN ] torsemide 20 mg PO DAILY 90 days warfarin 5 mg See Protocol PO DAILY 90 days Nursing Note Pt to [facility] for yearly visit. INR: 2.0 in therapeutic range of 2-3 All medications and supplements reviewed Risk scores done No changes in health, diet, medications, or supplements, Denies any signs and symptoms of bleeding or bruising or clotting. Bleeding, bruising, clotting discussed Nutritional guidance given to avoid greens today. Food list reviewed. Pt to have strawberries which can raise the INR. Food list and new greens food chart given to pt but he refused to take them. He states he has been on warfarin for a long time and knows about the food list. Dose: continue same dose of 5mg X 6 days and 2.5mg X 1 day () F/U INR: 4 weeks Patient verbalizes understanding of instructions given Anti-Coag Initial Assessment Social Hx Patient Tobacco Use Status: Never used Tobacco alcohol intake: never Questionnaires HAS-BLED Does the patient had uncontrolled Hypertension?: No Does the patient have renal disease?: No Does the patient have liver disease?: No Does the patient have a history of stroke?: No Has the patient had major bleeding or predisposition to bleeding?: No Does the patient have labile INRs?: No Is the patient over 65 years of age?: Yes Is the patient on medications that gives them a predisposition to bleeding?: Yes Does the patient use alcohol?: No HAS-BLED Score: 2 CHADSVASC Age: 66-74 Gender: Male Does the patient have a history of CHF?: Yes Does the patient have a history of Hypertension?: Yes Does the patient have a history of Stroke/TIA/Thromboembolism?: No Does the patient have a history of Vascular Disease (prior OH, PAD or aortic plaque)?: Yes Does the patient have a history of Diabetes?: No CHADS VACS Score: 4 Kristin Prediction Score Rsk VTE Active Cancer: No Previous VTE, excluding superficial vein thrombosis: Yes (PE) Reduced mobility: Yes Already known Thrombophilic Condition: No With-in last month Trauma and/or Surgery: No Elderly 70 year or older: Yes Heart and/or Respiratory Failure: Yes Acute Myocardial infarction and/or Ischemic Stroke: Yes Acute Infection and/or Rheumatologic Disorder: No Obesity (BMI 30 or greater): Yes Ongoing Hormonal Treatment: Yes Score: 11 Kristin Score less than 4; Low Risk of VTE Kristin Score 4 or greater; High Risk of VTE Coding Level of Care Code Est Patient Level 2 Diagnoses Current use of anticoagulant therapy Z79.01 Comment yearly visit/meds reviewed/risk scores done Assessment & Plan Assessment & Plan (1) Current use of anticoagulant therapy: 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
[2025-04-02 08:11] LABS: Prothrombin Time Whole Bld POC 23.5 sec (11.1-13.5)
== END 2025-04-02 08:36 | disposition home or self-care (01) ==
LOC: HO.ACS 08:01
PROVIDERS: PCP Family Medicine; Visit Provider Internal Medicine Medical Oncology
DX: Z79.01 Long term (current) use of anticoagulants (principal)

== ENCOUNTER → 2025-04-02 08:01 | Outpatient (BNVA) | payer MEDICARE, SELFPAY | PROVIDERS: PCP Family Medicine; Visit Provider Internal Medicine Medical Oncology | DX: I48.0 Paroxysmal atrial fibrillation (principal); Z79.01 Long term (current) use of anticoagulants; Z51.81 Encounter for therapeutic drug level monitoring | CPT/HCPCS: 85610; 99212 ==

== ENCOUNTER 2025-04-15 12:10 | Outpatient (REF) | payer MEDICARE, SELFPAY ==
[2025-04-15 14:50] LABS: MANUAL DIFF FLAG NO
[2025-04-15 15:05] LABS: Hematocrit 40.1 % (42.0-52.0); Hemoglobin 13.0 g/dl (14.0-18.0); Imm Gran Abs Auto 0.03 X10*3/uL (0.00-0.03); Imm Gran Pct Auto 0.5 % (0.0-0.4); Lymphocytes Absolute Auto 1.3 X10*3/uL (1.2-4.9); Mean Corpuscular HGB Conc 32.4 g/dl (31.0-36.0); Mean Corpuscular Hemoglobin 30.4 pg (27.0-33.0); Mean Corpuscular Volume 93.9 fL (80.0-98.0); NRBC Abs Auto 0.000 X10*3/uL (0.0-0.012); NRBC Pct Auto 0.0 /100WBC (0.0-0.2); Platelet Count 172 X10*3/uL (160-400); Red Blood Count 4.27 X10*6/uL (4.60-5.80); White Blood Count 6.3 X10*3/uL (4.8-10.8)
== END 2025-04-15 12:11 | disposition home or self-care (01) ==
LOC: HO.WFDLDS 12:10
PROVIDERS: Referring Provider Family Medicine; Visit Provider Student in an Organized Health Care Education/Training Program
DX: Z45.018 Encounter for adjustment and management of other part of cardiac pacemaker (principal); Z01.818 Encounter for other preprocedural examination
CPT/HCPCS: 36415; 85025

== ENCOUNTER 2025-04-23 08:14 | Outpatient (AMB) | payer MEDICARE, SELFPAY ==
--- NOTE | 2025-04-23 08:18 | MHC.PC.OV ---
Vital Signs 04/23/25 08:25 Height 5 ft 9 in Weight 428 lb 2 oz BMI 63.2 BP 108/69 Blood Pressure Location Lt brachial Position Sitting Respiration 16 Pulse 83 Pulse Source Pulse Oximeter Temp 97.5 F Temp Source Oral Pulse Oximetry (%) 96 Oxygen Delivery Method Room Air Intake Visit Reasons: f/u HTN, chronic conditions Intake Note: patient here for follow up on HTN and chronic conditions Denial Resolution Specialist Required: No Allergies No Known Allergies (No Known Allergies*) Allergy (Verified 04/23/25 08:24) Medication List - Last Reconciled 04/23/25 by Sin Mcdonnell MD aspirin (Adult Low Dose Aspirin) 81 mg PO DAILY atorvastatin 80 mg PO DAILY 90 days lisinopril 20 mg PO DAILY metoprolol tartrate 50 mg PO BID 90 days [OMEGA XL 1 TAB IN AM 1 TAB IN PM FOR JOINT HEALTH TO RELEIVE PAIN ] torsemide 20 mg PO DAILY 90 days warfarin 5 mg See Protocol PO DAILY 90 days Tobacco use date assessed: 04/23/25 Fall risk assessment: No Falls in past year Last assessed Fall Risk: 04/23/25 Dental Screening Dental Screen Date: 04/23/25 Did you have a dental visit in the last 12 months?: No Did you have a dental problem in the last 6 months where you did not have access to dental care?: No Was dental information given to patient?: No HPI f/u HTN, chronic conditions HPI Details 70 y/o male presents to f/u HTN, chronic conditions. Blood pressure today 108/69, 83p. He is on lisinopril 20mg, metoprolol 50mg b.i.d. Pt has noted some RLE pain and swelling. Has described pain at the back of his L leg as well. Also reports pain on the inside of his leg near his groin at night along with muscle spasms. Recent pacemaker replacement. Pt states he is doing well. HPI Comments History of Present Illness Details Documentation assistance for Sin Mcdonnell MD, was provided by Jimbo Rizzo,? Contracts Administrator on 04/23/2025 at 9:02 AM EST. I, Dr. Mcdonnell, have read, observed, and verified documentation. [facility] Medical History (Updated 04/23/25 @ 09:07 by Jimbo Rizzo) Afib IBS (irritable bowel syndrome) BMI 60.0-69.9, adult Morbid obesity NORBERT (obstructive sleep apnea) Paroxysmal atrial fibrillation Morbid obesity Hypogonadism male Surgical History Hx of colonoscopy History of coronary artery stent placement History of permanent cardiac pacemaker placement Hx of ventral hernia repair Hx of laparoscopic gastric banding Hx of oral surgery Hx of appendectomy Family History Father Heart disease Mother Hypertension Brother Lung cancer Substance use disorder Social History Household Members Other:: lives with his mother and brother Housing: House Alcohol intake: never Patient Tobacco Use Status: Never used Tobacco e-Cigarette/Vaping Use: Never Used Second Hand Smoke Exposure: No service: No Current occupational status: employed 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 Emilio Patel, Karol Becker, Daniel Parikh and colleagues, with an educational macho from [employer]. Physical exam (Primary Care) Vital Signs: Last Vital Signs Temp 97.5 F 04/23/25 08:25 Pulse 83 04/23/25 08:25 Resp 16 04/23/25 08:25 BP 108/69 04/23/25 08:25 Pulse Ox 96 04/23/25 08:25 Oxygen Delivery Method Room Air 04/23/25 08:25 BMI result Body Mass Index 63.2 Tobacco/Smoking Status: Tobacco use Status Tobacco use date assessed 04/23/25 04/23/25 08:29 Patient Tobacco Use Status Never used Tobacco 04/23/25 08:22 e-Cigarette/Vaping Use Never Used 04/23/25 08:22 Thrive Assessment: Date of Thrive Assessment Date Thrive assessed 12/24/23 04/23/25 08:22 Const Nutritional Appearance: obese morbidly obese Coding Level of Care Code Est Pt Level 4 (22273) Diagnoses Essential hypertension I10 Pacemaker Z95.0 Afib I48.91 Morbid obesity E66.01 NORBERT (obstructive sleep apnea) G47.33 Leg pain M79.606 Coronary artery disease I25.10 Assessment & Plan Assessment & Plan (1) Essential hypertension: Code(s): I10 - Essential (primary) hypertension Category: Medical Plan: Blood pressure is controlled. Goal is less than 130/80. Continue current medication Hydrate well (2) Pacemaker: Code(s): Z95.0 - Presence of cardiac pacemaker Category: Medical Plan: Recent pacemaker replacement Patient is doing well No erythema surrounding wound. No drainage. (3) Afib: Code(s): I48.91 - Unspecified atrial fibrillation Category: Medical Plan: Patient is anticoagulated and has pacer Stable Follow-up with Cardiology as recommended (4) Morbid obesity: Code(s): E66.01 - Morbid (severe) obesity due to excess calories Category: Medical Plan: Morbid obesity and NORBERT Will try sending a GLP 1. Previously he was told this would cost 90 dollars per month.\ Will retry this (5) NORBERT (obstructive sleep apnea): Comment: KNOWN CASE OF SEVERE OBSTRUCTIVE SLEEP APNEA. HE IS A REGULAR USER OF CPAP AT NIGHT AND USES, FOR 8-10 HOURS EVERY NIGHT. HE ADMITS THAT HE CANNOT ACTUALLY SLEEP WITHOUT THE CPAP. HE HAS THE NEW CPAP DEVICE AND IS GETTING SUPPLIES ON TIME. Code(s): G47.33 - Obstructive sleep apnea (adult) (pediatric) Category: Medical Plan: Continue CPAP Sending script for DLP 1 medications (6) Leg pain: Code(s): M79.606 - Pain in leg, unspecified Category: Medical Plan: Right calf pain after leg was on an operating table Concern for Achilles tendon injury versus hematoma. DVT unlikely as patient is on warfarin and aspirin. No popliteal space tenderness or swelling. Will get imaging of right lower extremity soft tissue (7) Coronary artery disease: Code(s): I25.10 - Atherosclerotic heart disease of [place] coronary artery without angina pectoris Category: Medical Plan: Patient is on aspirin, atorvastatin and metoprolol. Patient says that someone recently told him he can discontinue aspirin however most recent cardiology note from December specifically states to continue aspirin. Advised him to discuss with Cardiology. Orders: Orders US Extremity Nonvas Limited RT Today M79.604 - Pain in right leg Medications: New tirzepatide (weight loss) (Zepbound) for 4 weeks 2.5 mg (0.5 mL) subcut QWEEK 2 mL 3RF 28 days G47.33 - Obstructive sleep apnea (adult) (pediatric)
[2025-04-23 08:25] VITALS: BP 108/69; PULSE 83; RESP 16; TEMP 36.4; O2SAT 96; BMI 63.2
== END 2025-04-23 09:04 | disposition home or self-care (01) ==
LOC: HO.HMCFM 08:14
PROVIDERS: PCP Family Medicine; Visit Provider Family Medicine
DX: I10 Essential (primary) hypertension (principal); I48.91 Unspecified atrial fibrillation; E66.01 Morbid (severe) obesity due to excess calories; Z68.44 Body mass index [BMI] 60.0-69.9, adult; Z95.0 Presence of cardiac pacemaker; G47.33 Obstructive sleep apnea (adult) (pediatric); M79.606 Pain in leg, unspecified; I25.10 Atherosclerotic heart disease of native coronary artery without angina pectoris

== ENCOUNTER → 2025-04-23 08:14 | Outpatient (BNVA) | payer MEDICARE, SELFPAY | PROVIDERS: PCP Family Medicine; Visit Provider Family Medicine | DX: I10 Essential (primary) hypertension (principal); I48.91 Unspecified atrial fibrillation; I25.10 Atherosclerotic heart disease of native coronary artery without angina pectoris; Z95.0 Presence of cardiac pacemaker; G47.33 Obstructive sleep apnea (adult) (pediatric); E66.01 Morbid (severe) obesity due to excess calories; Z68.44 Body mass index [BMI] 60.0-69.9, adult; Z71.3 Dietary counseling and surveillance; M79.605 Pain in left leg | CPT/HCPCS: 99212 ==

== ENCOUNTER 2025-04-27 10:47 | Outpatient (REF) | payer MEDICARE, SELFPAY | END 2025-04-27 10:48 | disposition home or self-care (01) | LOC: HO.LAB 10:47 | PROVIDERS: Visit Provider Internal Medicine Medical Oncology | DX: Z13.89 Encounter for screening for other disorder (principal) ==

== ENCOUNTER 2025-04-27 11:31 | Outpatient (REF) | payer MEDICARE, SELFPAY ==
[2025-04-27 15:58] LABS: INTERNATIONAL NORM RATIO 1.3 (0.9-1.1); Prothrombin Time 14.7 SEC (10.9-12.4)
== END 2025-04-27 11:32 | disposition home or self-care (01) ==
LOC: HO.WFDLDS 11:31
PROVIDERS: Visit Provider Internal Medicine Medical Oncology
DX: Z79.01 Long term (current) use of anticoagulants (principal)
CPT/HCPCS: 36415; 85610

== ENCOUNTER 2025-05-01 07:58 | Outpatient (REF) | payer MEDICARE, SELFPAY ==
--- OUTSIDE RECORDS SUMMARY | 2025-05-01 08:00 | XMS_ITS | Clinical Summary ---
Author Organization [facility] Address [address] [place] [address] Phone Care Team Providers Care Silica Mixer Operator Name Role Phone Pcp, Unknown Primary Care Provider Unavailabl e Social History Tobacco Use Types Packs/Day Years Used Date Smoking Tobacco: Never Assessed Education Answer Date Recorded Are you interested in more education? Not on hawa e 02/10/2023 Are you concerned about learning? Not on file 02/10/2023 No 02/10/2023 No 02/10/2023 Digital Access Answer Date Recorded No 03/13/2023 No 03/13/2023 Reliable internet access at home? Not on file 03/13/2023 Device with a working camera? Not on file Sex and Gender Information Value Date Recorded Sex Assigned at Not on file Legal Sex Male 12:32 PM EST Gender Identity Not on file Sexual Orientation Not on file Plan of Treatment Health Maintenance Due Date Last Done Comments Adult Td,Tdap Booster 1955 LIPID PANEL 1955 DEPRESSION SCREENING 1967 SMOKING Hx and SMOKELESS TOBACCO SCREENING 01/21/1968 HEPATITIS C SCREENING 1973 COLOGUARD 01/21/2000 COLONOSCOPY 01/21/2000 COLORECTAL CANCER SCREENING 01/21/2000 FIT TEST 01/21/2000 FOBT 01/21/2000 SIGMOIDOSCOPY 01/21/2000 VIRTUAL COLONOSCOPY 01/21/2000 PNEUMOCOCCAL VACCINES (50+ years) (1 of 1 - PCV) 2005 ZOSTER VACCINES (1 of 2) 2005 COVID-19 VACCINE (4 - 2023-2 5 season) 2024 09/22/2021, 03/16/2021, 02/16/2021 RSV VACCINE (1 - 1-dose 75+ series) 2030 HEPATITIS A VACCINES Aged Out No long er eligible based on patient's age to complete this topic HIB VACCINES Aged Out No longer eligi ble based on patient's age to complete this topic MENINGOCOCCAL VACCINES (ACWY) Aged Out No longer eligible based on patient's age to complete this topic MENINGOCOCCAL VACCINES (B) Aged Out N o longer eligible based on patient's age to complete this topic Medical Devices Not on file Insurance [place] [id number] [facility] MEDEX SUPPLEMENT MEDICARE PART A & B [employer] MEDEX SUPPLEMENT MEDICARE PART A & B [employer] MEDEX SUPPLEMENT MEDICARE PART A & B [employer] MEDEX SUPPLEMENT MEDICARE PART A & B [employer] MEDEX SUPPLEMENT MEDICARE PART A & B [employer] MEDEX SUPPLEMENT MEDICARE PART A & B [employer] MEDEX SUPPLEMENT MEDICARE PART A & B [place] [employer] MEDEX SUPPLEMENT MEDICARE PART A & B BLUE CROSS MEDEX SUPPLEMENT Member Subscriber Plan / Payer (Ef fective 2020-Present) Name:Cali Vela Relation to Subscriber:Self Name:Cali Vela Payer ID:[id number] (NAIC) Type:Indemnity Address: [facility] [id number] [place] [phone] Care Teams Silica Mixer Operator Relationship Specialty Start Date End Date Pcp, Unknown PCP - General 08/23/21 Additional Source Comments The information contained in this document represents components of the legal health record. It is not the complete legal health record.[facility]
[2025-05-01 11:40] LABS: INTERNATIONAL NORM RATIO 1.5 (0.9-1.1); Prothrombin Time 16.7 SEC (10.9-12.4)
== END 2025-05-01 07:59 | disposition home or self-care (01) ==
LOC: HO.WFDLDS 07:58
PROVIDERS: Visit Provider Internal Medicine Medical Oncology
DX: Z79.01 Long term (current) use of anticoagulants (principal)
CPT/HCPCS: 36415; 85610

== ENCOUNTER 2025-05-05 07:53 | Outpatient (REF) | payer MEDICARE, SELFPAY ==
--- OUTSIDE RECORDS SUMMARY | 2025-05-05 07:55 | XMS_ITS | Clinical Summary ---
Author Organization [facility] Address [address] [place] [address] Phone Care Team Providers Care Tobacco Buyer Name Role Phone Pcp, Unknown Primary Care [...] Insurance [place] [id number] [facility] MEDEX SUPPLEMENT MEDICARE PART A & B [place] [employer] MEDEX SUPPLEMENT MEDICARE PART A & B [place] [employer] MEDEX SUPPLEMENT MEDICARE PART A & B [employer]OSS MEDEX SUPPLEMENT MEDICARE PART A & B [place] [employer] MEDEX SUPPLEMENT MEDICARE PART A & B [place] [employer] MEDEX SUPPLEMENT MEDICARE PART A & B [place] [employer] MEDEX SUPPLEMENT MEDICARE PART A & B [place] [employer] MEDEX SUPPLEMENT MEDICARE PART A & B BLUE CROSS MEDEX SUPPLEMENT Member Subscriber Plan / Payer (Ef fective 2020-Present) Name:Cali Vela Relation to Subscriber:Self Name:Cali Vela Payer ID:[id number] (NAIC) Type:Indemnity Address: [facility] [id number] [place] [id number] Care Teams Tobacco Buyer Relationship Specialty Start Date End Date Pcp, Unknown PCP - General 08/23/21 Additional Source Comments The information contained in this document represents components of the legal health record. It is not the complete legal health record.[facility]
[2025-05-05 11:40] LABS: INTERNATIONAL NORM RATIO 2.4 (0.9-1.1); Prothrombin Time 27.3 SEC (10.9-12.4)
== END 2025-05-05 07:54 | disposition home or self-care (01) ==
LOC: HO.WFDLDS 07:53
PROVIDERS: Visit Provider Internal Medicine Medical Oncology
DX: Z79.01 Long term (current) use of anticoagulants (principal)
CPT/HCPCS: 36415; 85610

== ENCOUNTER 2025-05-11 09:11 | Outpatient (AMB) | payer MEDICARE, SELFPAY ==
[2025-05-11 09:24] LABS: Prothrombin Time Whole Bld POC 27.5 sec (11.1-13.5); ~PT, ~INR - Anti Coag Clinic 2.3 (0.9-1.1)
--- NOTE | 2025-05-11 09:26 | MHC.OFFVISCO ---
Intake Intake Visit Reasons: Anticoagulation Allergies No Known Allergies (No Known Allergies*) Allergy (Verified 05/11/25 09:19) Medication List - Last Reconciled 05/11/25 by Abbi Bansal RN aspirin (Adult Low Dose Aspirin) 81 mg PO DAILY atorvastatin 80 mg PO DAILY 90 days lisinopril 20 mg PO DAILY metoprolol tartrate 50 mg PO BID 90 days [OMEGA XL 1 TAB IN AM 1 TAB IN PM FOR JOINT HEALTH TO RELEIVE PAIN ] tirzepatide (weight loss) (Zepbound) 2.5 mg (0.5 mL) subcut QWEEK 28 days torsemide 20 mg PO DAILY 90 days warfarin 5 mg See Protocol PO DAILY 90 days Nursing Note Pt to ACS today, usually goes to [facility] in [place] but has and appt w/Dr Barry. pulmonology today INR: 2.3 in therapeutic range of 2-3 Medications and supplements reviewed No changes in health, diet, medications, or supplements, Denies any signs and symptoms of bleeding or bruising or clotting. Bleeding, bruising, clotting discussed Nutritional guidance given Dose: 5mg X 6 days and 2.5mg X 1 day () F/U INR: 4 weeks Patient verbalizes understanding of instructions given Anti-Coag Initial Assessment Social Hx Patient Tobacco Use Status: Never used Tobacco alcohol intake: never Coding Level of Care Code Est Patient Level 1 Diagnoses Current use of anticoagulant therapy Z79.01 Results AMB INR Fingerstick AMB INR Fingerstick 2.3 Last Edit by Abbi Bansal RN on 05/11/25 09:23 interface delay Assessment & Plan Assessment & Plan (1) Current use of anticoagulant therapy: Code(s): Z79.01 - extermination supervisor (current) use of anticoagulants Category: Medical Orders: Orders Prothrombin Time INR 06/09/25 Z79.01 - extermination supervisor (current) use of anticoagulants
== END 2025-05-11 09:37 | disposition home or self-care (01) ==
PROVIDERS: PCP Internal Medicine Medical Oncology; Visit Provider Internal Medicine Medical Oncology
DX: Z79.01 Long term (current) use of anticoagulants (principal)

== ENCOUNTER → 2025-05-11 09:11 | Outpatient (BNVA) | payer MEDICARE, SELFPAY | PROVIDERS: PCP Internal Medicine Medical Oncology; Visit Provider Internal Medicine Medical Oncology | DX: G47.33 Obstructive sleep apnea (adult) (pediatric) (principal); E66.01 Morbid (severe) obesity due to excess calories; Z68.44 Body mass index [BMI] 60.0-69.9, adult; Z99.89 Dependence on other enabling machines and devices; Z79.01 Long term (current) use of anticoagulants | CPT/HCPCS: 85610; 99211; 99212 ==

== ENCOUNTER 2025-05-11 09:34 | Outpatient (AMB) | payer MEDICARE, SELFPAY ==
[2025-05-11 09:42] VITALS: BP 120/92; PULSE 84; O2SAT 95; BMI 64.0
--- NOTE | 2025-05-11 09:42 | A.OFFVIS_ITS ---
Vital Signs 05/11/25 09:42 Height 5 ft 9 in Weight 433 lb 3.333 oz BMI 64.0 BP 120/92 H Blood Pressure Location Lt brachial Position Sitting Pulse 84 Pulse Source Pulse Oximeter Pulse Oximetry (%) 95 Oxygen Delivery Method Room Air Intake Visit Reasons: Obstructive sleep apnea Intake Note: pt is here for norbert follow up and using if every night ,he also states he does get short of breath with walking. Medical Payment Poster Required: No Allergies No Known Allergies (No Known Allergies*) Allergy (Verified 05/11/25 09:46) Medication List - Last Reconciled 05/11/25 by Jeremi Barry MD aspirin (Adult Low Dose Aspirin) 81 mg PO DAILY atorvastatin 80 mg PO DAILY 90 days lisinopril 20 mg PO DAILY metoprolol tartrate 50 mg PO BID [OMEGA XL 1 TAB IN AM 1 TAB IN PM FOR JOINT HEALTH TO RELEIVE PAIN ] tirzepatide (weight loss) (Zepbound) 2.5 mg (0.5 mL) subcut QWEEK 28 days torsemide 20 mg PO DAILY 90 days warfarin 5 mg See Protocol PO DAILY 90 days Do you need a note to return to daycare/school/sports/work: No HPI HPI Obstructive sleep apnea: Details: This 70 years old gentleman with morbid obesity and diagnosis of obstructive sleep apnea is here for follow-up after 6 months. Recently hospitalized and had a revision of the pacemaker. He does tend to retain more fluid and has put on some weight. He has obstructive sleep apnea which is being treated with CPAP and he uses every night regularly. Denies the cough wheezing, but does have shortness of breath when he walks around. However because of his morbid obesity he does not walk fast anyway. He has not been able to lose much weight because he is not on weight reduction meds. Due to a high co-payment. [facility] Medical History Afib IBS (irritable bowel syndrome) BMI 60.0-69.9, adult Morbid obesity NORBERT (obstructive sleep apnea) Paroxysmal atrial fibrillation Morbid obesity Hypogonadism male Surgical History Hx of colonoscopy History of coronary artery stent placement History of permanent cardiac pacemaker placement Hx of ventral hernia repair Hx of laparoscopic gastric banding Hx of oral surgery Hx of appendectomy Family History Father Heart disease Mother Hypertension Brother Lung cancer Substance use disorder Social History Household Members Other:: lives with his mother and brother Housing: House Alcohol intake: never Patient Tobacco Use Status: Never used Tobacco e-Cigarette/Vaping Use: Never Used Second Hand Smoke Exposure: No service: No Current occupational status: employed 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 Current occupational exposures/hazards: No Cognitive needs: No Hearing needs: No Vision needs: Yes (Glasses) Review of Systems Const All systems reviewed & are unremarkable except as noted in HPI and below Eyes Reports no additional complaints ENT Reports no additional complaints Card Denies chest pain and Reports irregular heart rhythm (Paroxysmal atrial fib) Resp Reports as per HPI GI Reports other (He has a huge belly with protuberant abdominal wall.) Reports no additional complaints Musc Reports no additional complaints Skin/Breast Reports system reviewed and no additional complaints, except as documented Neuro Reports no additional complaints Psych Reports no additional complaints Physical Exam Vital Signs: Last Vital Signs Pulse 84 05/11/25 09:42 BP 120/92 H 05/11/25 09:42 Pulse Ox 95 05/11/25 09:42 Oxygen Delivery Method Room Air 05/11/25 09:42 BMI result Body Mass Index 64.0 Const Other: He is a huge man, BMI 66 General: comfortable, no acute distress, alert and awake Orientation/consciousness: patient oriented x3 HEENT Head: Yes normal to inspection General nose exam: No nasal polyps present and No nasal discharge present Face and sinus: Yes sinuses nontender Mouth: oropharynx normal (Hard to examine and oropharynx is very crowded) Throat: Yes posterior oropharynx normal Eyes General: appearance normal, both eyes and all related structures Neck Other: He used Agatha and obese neck Neck: Yes no lymphadenopathy, Yes trachea midline and Yes no JVD Thyroid: Thyroid normal Chest Chest palpation & inspection: normal inspection of the chest, normal palpation of entire chest wall and no tenderness Resp Other: Percussion note is not perceptible due to very thick chest wall. Breath sounds are very distant especially over the basilar areas. But no adventitious sounds are heard. Cardio Palpation: PMI not normal (Not palpable) Rate: regular rate Rhythm: regular rhythm Heart sounds: no gallops and no murmurs GI Palpation (GI): Soft to palpation, Tenderness to palpation present (GI), No hepatosplenomegaly present, Palpable mass present and Other GI palpation findings present (Abdomen is very protuberant) Auscultation: normal bowel sounds Back/Spine/Pelvis Thoracic/Lumbar Spine: thoracic and lumbar spine normal to inspection and thoraco-lumbar ROM limited Skin General skin exam: no rashes or lesions noted Neuro General: patient oriented x3 and no focal motor deficits Cranial nerves: Yes CN's II-XII intact bilaterally Extrem General: Yes normal to inspection, Yes no calf tenderness and Yes edema (Chronic stasis edema of the legs , no ulcers ) Psych Appearance: grossly normal and well kempt Speech and movement: Normal speech and movement present Results AMB INR Fingerstick AMB INR Fingerstick 2.3 Last Edit by Abbi Bansal RN on 05/11/25 09:23 interface delay Results Reviewed Results Reviewed: Compliance report for the last 30 nights reviewed. He has used 30/30 nights with an average usage per night of 10 hours 16 minutes. There is no significant air leak and his residual AHI is 3.3 Assessment & Plan Assessment & Plan (1) Morbid obesity: Comment: Continues to have super morbid obesity, BMI = 64.0 Again has gained some weight. His weight depends upon the amount of fluid that he holds in lower extremities. Code(s): E66.01 - Morbid (severe) obesity due to excess calories Category: Medical Plan: Talked about the weight but he is in no position to lose weight. He is not certain if he can have anti obesity meds because he can not afford a high co-payment. (2) NORBERT (obstructive sleep apnea): Comment: KNOWN CASE OF SEVERE OBSTRUCTIVE SLEEP APNEA. HE IS A REGULAR USER OF CPAP AT NIGHT AND USES, FOR 8-10 HOURS EVERY NIGHT. HE ADMITS THAT HE CANNOT ACTUALLY SLEEP WITHOUT THE CPAP. HE HAS THE NEW CPAP DEVICE AND IS GETTING SUPPLIES ON TIME. Code(s): G47.33 - Obstructive sleep apnea (adult) (pediatric) Category: Medical Plan: Commended for good compliance and advised to keep on using the CPAP very regularly every night Medications: Changed From metoprolol tartrate 50 mg PO BID 90 days 180 tabs 1RF I10 - Essential (primary) hypertension To metoprolol tartrate 75mg in am and 50mg in pm per cardiology at [facility] mixer operator hot metal 50 mg PO BID I10 - Essential (primary) hypertension Coding Level of Care Code Est Pt Level 3 (34712) Diagnoses Morbid obesity E66.01 NORBERT (obstructive sleep apnea) G47.33
== END 2025-05-11 10:19 | disposition home or self-care (01) ==
PROVIDERS: PCP Internal Medicine Medical Oncology; Visit Provider Internal Medicine
DX: E66.01 Morbid (severe) obesity due to excess calories (principal); G47.33 Obstructive sleep apnea (adult) (pediatric)
CPT/HCPCS: 99213

== ENCOUNTER 2025-06-04 14:39 | Outpatient (REF) | payer MEDICARE, SELFPAY ==
--- NOTE | ~2025-06-04 | US_ITS ---
Exam: US Extremity Nonvas Limited Rt TECHNIQUE: Grayscale and color Doppler imaging was performed in the region of the Achilles tendon. INDICATION: Right leg pain and swelling in the region of the Achilles tendon Prior: None FINDINGS: Achilles tendon appears intact without thickening. The myotendinous junction is obscured by subcutaneous soft tissue edema. US/US Extremity Nonvas Limited RT IMPRESSION: Intact Achilles tendon. Subcutaneous soft tissue edema. Electronically signed by: Ming Arciniega MD 06/04/2025 03:25 PM EDT
--- OUTSIDE RECORDS SUMMARY | 2025-06-04 14:43 | XMS_ITS | Clinical Summary ---
Author Organization [facility] Address [address] [place] [address] Phone Care Team Providers Care Dev Manager Name Role Phone Pcp, Unknown Primary Care [...] Insurance [place]IC[place] PART A [place] [id number] [facility] MEDEX SUPPLEMENT MEDICARE PART A & B [employer] MEDEX SUPPLEMENT MEDICARE PART A & B [employer] MEDEX SUPPLEMENT MEDICARE PART A & B [place] MEDEX SUPPLEMENT MEDICARE PART A & B [employer]oblick MEDEX SUPPLEMENT MEDICARE PART A & B [employer]oblick MEDEX SUPPLEMENT MEDICARE PART A & B [employer]ob[employer] MEDEX SUPPLEMENT MEDICARE PART A & B [employer] [email or web address] MEDEX SUPPLEMENT MEDICARE PART A & B BLUE CROSS MEDEX SUPPLEMENT Member Subscriber Plan / Payer (Ef fective 2020-Present) Name:Cali Vela Relation to Subscriber:Self Name:Cali Vela Payer ID:[id number] (NAIC) Type:Indemnity Address: [facility] [id number] [place] [phone] Care Teams Dev Manager Relationship Specialty Start Date End Date Pcp, Unknown PCP - General 08/23/21 Additional Source Comments The information contained in this document represents components of the legal health record. It is not the complete legal health record.[facility]
== END 2025-06-04 14:40 | disposition home or self-care (01) ==
LOC: HO.US 14:39
PROVIDERS: Visit Provider Family Medicine
DX: M79.604 Pain in right leg (principal); M79.89 Other specified soft tissue disorders
CPT/HCPCS: 76882

== ENCOUNTER → 2025-06-04 14:40 | Outpatient (BNV) | payer MEDICARE, SELFPAY | PROVIDERS: Visit Provider Radiology Diagnostic Radiology | DX: R22.41 Localized swelling, mass and lump, right lower limb (principal); M79.604 Pain in right leg | CPT/HCPCS: 76882 ==

== ENCOUNTER 2025-06-09 07:54 | Outpatient (REF) | payer MEDICARE, SELFPAY ==
--- OUTSIDE RECORDS SUMMARY | 2025-06-09 07:59 | XMS_ITS | Clinical Summary ---
Author Organization [facility] Address [address] [place] [address] Phone Care Team Providers Care Remote Broadcast Technician Name Role Phone Pcp, Unknown Primary Care [...] Insurance [place] [id number] [facility] MEDEX SUPPLEMENT MEDICARE PART A & B [employer] MEDEX SUPPLEMENT MEDICARE PART A & B [employer] MEDEX SUPPLEMENT MEDICARE PART A & B [employer] MEDEX SUPPLEMENT MEDICARE PART A & B [employer] MEDEX SUPPLEMENT MEDICARE PART A & B [employer] MEDEX SUPPLEMENT MEDICARE PART A & B [employer] MEDEX SUPPLEMENT MEDICARE PART A & B [place] [employer] MEDEX SUPPLEMENT MEDICARE PART A & B BLUE CROSS MEDEX SUPPLEMENT Member Subscriber Plan / Payer (Ef fective 2020-Present) Name:Cali Vela Relation to Subscriber:Self Name:Cali Vela Payer ID:[id number] (NAIC) Type:Indemnity Address: [facility] [id number] [place] [phone] Care Teams Remote Broadcast Technician Relationship Specialty Start Date End Date Pcp, Unknown PCP - General 08/23/21 Additional Source Comments The information contained in this document represents components of the legal health record. It is not the complete legal health record.[facility]
[2025-06-09 11:25] LABS: INTERNATIONAL NORM RATIO 2.3 (0.9-1.1); Prothrombin Time 26.1 SEC (10.9-12.4)
== END 2025-06-09 07:55 | disposition home or self-care (01) ==
LOC: HO.WFDLDS 07:54
PROVIDERS: Visit Provider Internal Medicine Medical Oncology
DX: Z51.81 Encounter for therapeutic drug level monitoring (principal); Z79.01 Long term (current) use of anticoagulants
CPT/HCPCS: 36415; 85610

== ENCOUNTER 2025-07-02 10:39 | Outpatient (AMB) | payer MEDICARE, SELFPAY ==
--- NOTE | 2025-07-02 10:42 | A.OFFPC_ITS ---
Vital Signs 07/02/25 10:47 Height 5 ft 9 in Weight 438 lb 4 oz BMI 64.7 BP 122/72 Blood Pressure Location Rt brachial Position Sitting Respiration 16 Pulse 92 Pulse Source Pulse Oximeter Temp 97.6 F Temp Source Oral Pulse Oximetry (%) 100 Oxygen Delivery Method Room Air Intake Visit Reasons: f/u chronic conditions Intake Note: patient here for follow up on chronic conditions Planner Chief Required: No Allergies No Known Allergies (No Known Allergies*) Allergy (Verified 07/02/25 10:46) Tobacco use date assessed: 07/02/25 Fall risk assessment: No Falls in past year Last assessed Fall Risk: 07/02/25 Dental Screening Dental Screen Date: 07/02/25 Did you have a dental visit in the last 12 months?: No Did you have a dental problem in the last 6 months where you did not have access to dental care?: No Was dental information given to patient?: No HPI f/u chronic conditions HPI Details 70 y/[facility] visit for near syncope 06/26/25. Had a near syncopal event/fogginess while sitting down at work. Unclear cause. No further episodes and pt notes he feels well today. Reports ongoing complaints of muscle cramping. Also reports Achilles tendon pain. He tries to eat regular meals. COUNT INCLUDES THE [facility] Medical History Afib IBS (irritable bowel syndrome) BMI 60.0-69.9, adult Morbid obesity NORBERT (obstructive sleep apnea) Paroxysmal atrial fibrillation Morbid obesity Hypogonadism male Surgical History Hx of colonoscopy History of coronary artery stent placement History of permanent cardiac pacemaker placement Hx of ventral hernia repair Hx of laparoscopic gastric banding Hx of oral surgery Hx of appendectomy Family History Father Heart disease Mother Hypertension Brother Lung cancer Substance use disorder Social History Household Members Other:: lives with his mother and brother Housing: House Alcohol intake: never Patient Tobacco Use Status: Never used Tobacco e-Cigarette/Vaping Use: Never Used Second Hand Smoke Exposure: No service: No Current occupational status: employed 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 Emilio Patel, Karol Becker, Daniel Parikh and colleagues, with an educational macho from [employer]. Physical exam (Primary Care) Vital Signs: Last Vital Signs Temp 97.6 F 07/02/25 10:47 Pulse 92 07/02/25 10:47 Resp 16 07/02/25 10:47 BP 122/72 07/02/25 10:47 Pulse Ox 100 07/02/25 10:47 Oxygen Delivery Method Room Air 07/02/25 10:47 BMI result Body Mass Index 64.7 Tobacco/Smoking Status: Tobacco use Status Tobacco use date assessed 07/02/25 07/02/25 10:50 Patient Tobacco Use Status Never used Tobacco 07/02/25 10:44 e-Cigarette/Vaping Use Never Used 07/02/25 10:44 Thrive Assessment: Date of Thrive Assessment Date Thrive assessed 12/24/23 07/02/25 10:44 Const Nutritional Appearance: obese morbidly obese Coding Level of Care Code Est Pt Level 4 (57996) Diagnoses Pre-syncope R55 Muscle cramping R25.2 Morbid obesity E66.01 Assessment & Plan Assessment & Plan (1) Pre-syncope: Code(s): R55 - Syncope and collapse Category: Medical Plan: Single episode of what patient describes as fogginess in his thinking Patient went to [facility] emergency department and was admitted to telemetry for monitoring. Ruled out ACS Pacer was also interrogated Unclear cause though he may have had an arrhythmia They recommended an echocardiogram in an outpatient setting with Cardiology. Patient has not made an appointment with his wheel blocker yet and I recommended he give them call to do so. He agrees. No further episodes and patient feels well today. (2) Muscle cramping: Code(s): R25.2 - Cramp and spasm Category: Medical Plan: Right lower calf and Achilles tendon pain Advised gentle stretching exercises, good hydration Recommended physical therapy the patient does not want to do this. He says he will discuss with his chiropractor. (3) Morbid obesity: Code(s): E66.01 - Morbid (severe) obesity due to excess calories Category: Medical Plan: Had tried prescribing Zepbound but this was declined by his insurance. Discussed a referral to [facility] weight management program but patient does not want to go to [facility] for this Agrees to a referral to [facility] weight management - referred. Orders: Referrals Medical Weight Management Referral E66.01 - Morbid (severe) obesity due to excess calories, G47.33 - Obstructive sleep apnea (adult) (pediatric), Z68.44 - Body mass index [BMI] 60.0-69.9, adult
[2025-07-02 10:47] VITALS: BP 122/72; PULSE 92; RESP 16; TEMP 36.4; O2SAT 100; BMI 64.7
--- OUTSIDE RECORDS SUMMARY | 2025-07-02 12:51 | XMS_ITS | Clinical Summary ---
Author Organization [facility] Address [address] [place] [address] Phone Care Team Providers Care Postal Mail Carrier Name Role Phone Pcp, Unknown Primary Care [...] Insurance [place] PART A [place] [id number] [facility] MEDEX SUPPLEMENT MEDICARE PART A & B [employer] MEDEX SUPPLEMENT MEDICARE PART A & B [employer] MEDEX SUPPLEMENT MEDICARE PART A & B [employer] CROSS MEDEX SUPPLEMENT MEDICARE PART A & B [employer] MEDEX SUPPLEMENT MEDICARE PART A & B [employer] MEDEX SUPPLEMENT MEDICARE PART A & B [employer] MEDEX SUPPLEMENT MEDICARE PART A & B [employer] MEDEX SUPPLEMENT MEDICARE PART A & B [place]UE [place] MEDEX SUPPLEMENT Member Subscriber Plan / Payer (Ef fective 2020-Present) Name:Cali Vela Relation to Subscriber:Self Name:Cali Vela Payer ID:[id number] (NAIC) Type:Indemnity Address: [facility] [id number] [place] [phone] Care Teams Postal Mail Carrier Relationship Specialty Start Date End Date Pcp, Unknown PCP - General 08/23/21 Additional Source Comments The information contained in this document represents components of the legal health record. It is not the complete legal health record.[facility]
== END 2025-07-02 11:19 | disposition home or self-care (01) ==
LOC: HO.HMCFM 10:39
PROVIDERS: PCP Family Medicine; Visit Provider Family Medicine
DX: R55 Syncope and collapse (principal); R25.2 Cramp and spasm; E66.01 Morbid (severe) obesity due to excess calories; Z68.44 Body mass index [BMI] 60.0-69.9, adult

== ENCOUNTER → 2025-07-02 10:39 | Outpatient (BNVA) | payer MEDICARE, SELFPAY | PROVIDERS: PCP Family Medicine; Visit Provider Family Medicine | DX: R55 Syncope and collapse (principal); R25.2 Cramp and spasm; E66.01 Morbid (severe) obesity due to excess calories; Z68.44 Body mass index [BMI] 60.0-69.9, adult; Z71.3 Dietary counseling and surveillance | CPT/HCPCS: 99212 ==

== ENCOUNTER 2025-07-09 08:52 | Outpatient (REF) | payer MEDICARE, SELFPAY ==
--- OUTSIDE RECORDS SUMMARY | 2025-07-09 09:32 | XMS_ITS | Clinical Summary ---
Author Organization [facility] Address [address] [place] [address] Phone Care Team Providers Care Mosaicist Name Role Phone Pcp, Unknown Primary Care [...] Insurance [place] PART A [place] [id number] [facility] MEDEX SUPPLEMENT MEDICARE PART A & B [employer] MEDEX SUPPLEMENT MEDICARE PART A & B [employer] MEDEX SUPPLEMENT MEDICARE PART A & B [employer] [place]OSS MEDEX SUPPLEMENT MEDICARE PART A & B [employer] MEDEX SUPPLEMENT MEDICARE PART A & B [employer] MEDEX SUPPLEMENT MEDICARE PART A & B [employer] MEDEX SUPPLEMENT MEDICARE PART A & B [place] [employer] MEDEX SUPPLEMENT MEDICARE PART A & B [place]UE [place] MEDEX SUPPLEMENT Member Subscriber Plan / Payer (Ef fective 2020-Present) Name:Cali Vela Relation to Subscriber:Self Name:Cali Vela Payer ID:[id number] (NAIC) Type:Indemnity Address: [facility] [id number] [place] [phone] Care Teams Mosaicist Relationship Specialty Start Date End Date Pcp, Unknown PCP - General 08/23/21 Additional Source Comments The information contained in this document represents components of the legal health record. It is not the complete legal health record.[facility]
== END 2025-07-09 08:53 | disposition home or self-care (01) ==
LOC: HO.LAB 08:52
PROVIDERS: Visit Provider Internal Medicine Medical Oncology
DX: Z13.89 Encounter for screening for other disorder (principal)

== ENCOUNTER 2025-07-09 09:47 | Outpatient (REF) | payer MEDICARE, SELFPAY ==
[2025-07-09 11:35] LABS: INTERNATIONAL NORM RATIO 2.4 (0.9-1.1); Prothrombin Time 27.5 SEC (10.9-12.4)
== END 2025-07-09 09:48 | disposition home or self-care (01) ==
LOC: HO.WFDLDS 09:47
PROVIDERS: Visit Provider Internal Medicine Medical Oncology
DX: Z51.81 Encounter for therapeutic drug level monitoring (principal); Z79.01 Long term (current) use of anticoagulants
CPT/HCPCS: 36415; 85610

== ENCOUNTER 2025-08-05 09:52 | Outpatient (REF) | payer MEDICARE, SELFPAY ==
[2025-08-05 11:36] LABS: INTERNATIONAL NORM RATIO 2.7 (0.9-1.1); Prothrombin Time 31.5 SEC (10.9-12.4)
--- OUTSIDE RECORDS SUMMARY | 2025-08-05 11:51 | XMS_ITS | Clinical Summary ---
Author Organization [facility] Address [address] [place] [phone] Phone Care Team Providers Care Deburr Technician Name Role Phone Pcp, Unknown Primary [...] 2005 ZOSTER VACCINES (1 of 2) 2005 INFLUENZA VACCINE (#1) 2025 10/01/2019 COVID-19 VACCINE (4 - 2024-2 6 season) 2025 09/22/2021, 03/16/2021, 02/16/2021 RSV VACCINE (1 - [...] file Insurance MEDICARE PART A & B [facility] MEDEX SUPPLEMENT MEDICARE PART A & B [employer]) MEDEX SUPPLEMENT MEDICARE PART A & B [employer]) MEDEX SUPPLEMENT MEDICARE PART A & B [employer] MEDEX SUPPLEMENT MEDICARE PART A & B [employer] MEDEX SUPPLEMENT MEDICARE PART A & B [employer]) MEDEX SUPPLEMENT MEDICARE PART A & B [employer]) MEDEX SUPPLEMENT MEDICARE PART A & B [facility] MEDEX SUPPLEMENT MEDICARE PART A & B [employer] MEDEX SUPPLEMENT Care Teams Deburr Technician Relationship Specialty Start Date End Date Pcp, Unknown PCP - General 08/23/21 Additional Source Comments The information contained in this document represents components of the legal health record. It is not the complete legal health record.[facility]
== END 2025-08-05 09:53 | disposition home or self-care (01) ==
LOC: HO.WFDLDS 09:52
PROVIDERS: Visit Provider Internal Medicine Medical Oncology
DX: Z79.01 Long term (current) use of anticoagulants (principal)
CPT/HCPCS: 36415; 85610

== ENCOUNTER 2025-09-02 10:28 | Outpatient (REF) | payer MEDICARE, SELFPAY ==
[2025-09-02 14:20] LABS: INTERNATIONAL NORM RATIO 3.0 (0.9-1.1); Prothrombin Time 35.5 SEC (11.2-13.5)
--- OUTSIDE RECORDS SUMMARY | 2025-09-02 20:18 | XMS_ITS | Clinical Summary ---
Author Organization [facility] Address [address] [place] [phone] Phone Care Team Providers Care Director Of Integrated Marketing Name Role Phone Pcp, Unknown Primary Care [...] on patient's age to complete this topic IPV VACCINES Aged Out No longer eligi ble based on patient's age to complete this topic MENINGOCOCCAL VACCINES (ACWY) Aged Out No longer eligible based on patient's age to complete this topic MENINGOCOCCAL VACCINES (B) Aged Out N o longer eligible based on patient's age to complete this topic Medical Devices Not on file Insurance MEDICARE PART A & B [facility] MEDEX SUPPLEMENT MEDICARE PART A & B [employer]OSS MEDEX SUPPLEMENT MEDICARE PART A & B [employer] MEDEX SUPPLEMENT MEDICARE PART A & B [employer] [place] [employer] MEDEX SUPPLEMENT MEDICARE PART A & B [place] [place] [employer] MEDEX SUPPLEMENT MEDICARE PART A & B [place] [place] [employer] MEDEX SUPPLEMENT MEDICARE PART A & B [place] [place] [employer] MEDEX SUPPLEMENT MEDICARE PART A & B Member Subscriber Plan / Payer (Ef fective 2020-Present) Name:Cali Vela Member ID:[id number] Relation to Subscriber:Self Name:Cali Vela Subscriber ID:[id number] Payer ID:[id number] Group ID:Not on file Type:Medicare Address: [facility] [employer] [facility] [address] [place] [phone] [facility] MEDEX SUPPLEMENT MEDICARE PART A & B [place] [employer] MEDEX SUPPLEMENT Care Teams Director Of Integrated Marketing Relationship Specialty Start Date End Date Pcp, Unknown PCP - General 08/23/21 Additional Source Comments The information contained in this document represents components of the legal health record. It is not the complete legal health record.[facility]
== END 2025-09-02 10:29 | disposition home or self-care (01) ==
LOC: HO.WFDLDS 10:28
PROVIDERS: Visit Provider Internal Medicine Medical Oncology
DX: Z51.81 Encounter for therapeutic drug level monitoring (principal); Z79.01 Long term (current) use of anticoagulants
CPT/HCPCS: 36415; 85610

== ENCOUNTER 2025-09-30 10:09 | Outpatient (REF) | payer MEDICARE, SELFPAY ==
[2025-09-30 11:43] LABS: INTERNATIONAL NORM RATIO 2.4 (0.9-1.1); Prothrombin Time 28.9 SEC (11.2-13.5)
--- OUTSIDE RECORDS SUMMARY | 2025-09-30 12:25 | XMS_ITS | Clinical Summary ---
Author Organization [facility] Address [address] [place] [phone] Phone Care Team Providers Care Tree Surgeon Name Role Phone Pcp, Unknown Primary Care [...] file Insurance MEDICARE PART A & B [facility] MEDEX SUPPLEMENT MEDICARE PART A & B [employer] MEDEX SUPPLEMENT MEDICARE PART A & B [employer] MEDEX SUPPLEMENT MEDICARE PART A & B [employer] MEDEX SUPPLEMENT Member Subscriber Plan / Payer (Ef fective 2020-Present) Name:Cali Vela Relation to Subscriber:Self Name:Cali Vela Payer ID:[id number] (NAIC) Type:[employer] Address: [facility] [id number] [place] [id number] MEDICARE PART A & B [employer] MEDEX SUPPLEMENT MEDICARE PART A & B [employer] MED[employer] SUPPLEMENT MEDICARE PART A & B [employer] MEDEX SUPPLEMENT MEDICARE PART A & B [facility] MEDEX SUPPLEMENT MEDICARE PART A & B [employer] MEDEX SUPPLEMENT Care Teams Tree Surgeon Relationship Specialty Start Date End Date Pcp, Unknown PCP - General 08/23/21 Additional Source Comments The information contained in this document represents components of the legal health record. It is not the complete legal health record.[facility]
== END 2025-09-30 10:10 | disposition home or self-care (01) ==
LOC: HO.WFDLDS 10:09
PROVIDERS: Visit Provider Internal Medicine Medical Oncology
DX: Z79.01 Long term (current) use of anticoagulants (principal)
CPT/HCPCS: 36415; 85610

== ENCOUNTER 2025-10-05 09:41 | Outpatient (AMB) | payer MEDICARE, SELFPAY ==
[2025-10-05 09:53] VITALS: BP 120/82; PULSE 110; O2SAT 95; BMI 66.9
--- NOTE | 2025-10-05 09:53 | A.OFFVIS_ITS ---
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 Required: No Allergies No Known Allergies (No Known Allergies*) Allergy (Verified 10/05/25 11:34) Medication List - Last Reconciled 10/05/25 by Jeremi Barry MD aspirin (Adult Low Dose Aspirin) 81 mg PO DAILY atorvastatin 80 mg PO DAILY 90 days lisinopril 20 mg (1/2 x 40 mg) PO DAILY metoprolol tartrate 50 mg PO BID 90 days [OMEGA XL 1 TAB IN AM 1 TAB IN PM FOR JOINT HEALTH TO RELEIVE PAIN ] torsemide 20 mg PO DAILY 90 days warfarin 5 mg See Protocol PO DAILY 90 days Do you need a note to return to daycare/school/sports/work: No HPI HPI Obstructive sleep apnea: Details: This 70 years old gentleman with super morbid obesity and diagnosis of severe obstructive sleep apnea, is here for follow-up after 4 months. He continues to use CPAP at night, and claims that without using CPAP he would not be able to sleep at all. The CPAP is working okay, he can get 8-9 hours of sleep. And then he feels refreshed during the daytime. This gentleman has super morbid obesity. He has history of gastroplasty in the remote past. But whatever the weight he had lost has come back. He is not in any active weight management program at this time because he say is he is not going to have any surgical procedure. He is looking into going on anti obesity med program. There has been insurance issue, he is going to talk to his primary care physician again. Part of his morbid obesity is due to fluid retention, he has chronic stasis edema of the lower extremities . For the past 3-4 weeks he has not used his diuretic therapy. He is afraid that after taking the diuretic pill he will have to go to the bathroom more frequently, So just to cut down the need to go to the bathroom he stopped taking the d iuretic med. Compared to his last visit he has put on 15 more lb. 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 [facility] Medical History Afib IBS (irritable bowel syndrome) BMI 60.0-69.9, adult Morbid obesity NORBERT (obstructive sleep apnea) Paroxysmal atrial fibrillation Morbid obesity Hypogonadism male Surgical History Hx of colonoscopy History of coronary artery stent placement History of permanent cardiac pacemaker placement Hx of ventral hernia repair Hx of laparoscopic gastric banding Hx of oral surgery Hx of appendectomy Family History Father Heart disease Mother Hypertension Brother Lung cancer Substance use disorder Social History Household Members Other:: lives with his mother and brother Housing: House Alcohol intake: never Patient Tobacco Use Status: Never used Tobacco e-Cigarette/Vaping Use: Never Used Second Hand Smoke Exposure: No service: No Current occupational status: employed 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 Current occupational exposures/hazards: No Cognitive needs: No Hearing needs: No Vision needs: Yes (Glasses) Review of Systems Const All systems reviewed & are unremarkable except as noted in HPI and below Eyes Reports no additional complaints ENT Reports no additional complaints Card Denies chest pain and Reports irregular heart rhythm (Paroxysmal atrial fib) Resp Reports as per HPI GI Reports other (He has a huge belly with protuberant abdominal wall.) Reports no additional complaints Musc Reports no additional complaints Skin/Breast Reports system reviewed and no additional complaints, except as documented Neuro Reports no additional complaints Psych Reports no additional complaints Physical Exam Vital Signs: Last Vital Signs Pulse 110 H 10/05/25 09:53 BP 120/82 10/05/25 09:53 Pulse Ox 95 10/05/25 09:53 Oxygen Delivery Method Room Air 10/05/25 09:53 BMI result Body Mass Index 66.9 Const Other: He is a huge man, BMI 66 General: comfortable, no acute distress, alert and awake Orientation/consciousness: patient oriented x3 HEENT Head: Yes normal to inspection General nose exam: No nasal polyps present and No nasal discharge present Face and sinus: Yes sinuses nontender Mouth: oropharynx normal (Hard to examine and oropharynx is very crowded) Throat: Yes posterior oropharynx normal Eyes General: appearance normal, both eyes and all related structures Neck Other: He used Agatha and obese neck Neck: Yes no lymphadenopathy, Yes trachea midline and Yes no JVD Thyroid: Thyroid normal Chest Chest palpation & inspection: normal inspection of the chest, normal palpation of entire chest wall and no tenderness Resp Other: Percussion note is not perceptible due to very thick chest wall. Breath sounds are very distant especially over the basilar areas. But no adventitious sounds are heard. Cardio Palpation: PMI not normal (Not palpable) Rate: regular rate Rhythm: regular rhythm Heart sounds: no gallops and no murmurs GI Palpation (GI): Soft to palpation, Tenderness to palpation present (GI), No hepatosplenomegaly present, Palpable mass present and Other GI palpation findings present (Abdomen is very protuberant) Auscultation: normal bowel sounds Back/Spine/Pelvis Thoracic/Lumbar Spine: thoracic and lumbar spine normal to inspection and thoraco-lumbar ROM limited Skin General skin exam: no rashes or lesions noted Neuro General: patient oriented x3 and no focal motor deficits Cranial nerves: Yes CN's II-XII intact bilaterally Extrem General: Yes normal to inspection, Yes no calf tenderness and Yes edema (Chronic stasis edema of the legs , no ulcers ) Psych Appearance: grossly normal and well kempt Speech and movement: Normal speech and movement present Results Reviewed Results Reviewed: Compliance report for the last 30 nights reviewed He has used 30/30 nights,. 100% Average use it per night 9 hours 6 minutes. Pressure used mostly 12-13 cm. There is no air leak. Residual AHI 2.9 Assessment & Plan Assessment & Plan (1) Morbid obesity: Comment: Continues to have super morbid obesity, BMI = 66.9. Recently he has gained more weight due to fluid retention, as he is not taking diuretic med. His weight depends upon the amount of fluid that he holds in lower extremities. Code(s): E66.01 - Morbid (severe) obesity due to excess calories Category: Medical Plan: I told him that he should resume taking the diuretic pill, torsemide 20 mg daily, He should be followed by cardiology service more regularly . (2) NORBERT (obstructive sleep apnea): Comment: KNOWN CASE OF SEVERE OBSTRUCTIVE SLEEP APNEA. HE IS A REGULAR USER OF CPAP AT NIGHT AND USES, FOR 8-10 HOURS EVERY NIGHT. HE ADMITS THAT HE CANNOT ACTUALLY SLEEP WITHOUT THE CPAP. HE HAS THE NEW CPAP DEVICE AND IS GETTING SUPPLIES ON TIME. Code(s): G47.33 - Obstructive sleep apnea (adult) (pediatric) Category: Medical Plan: Advise that he should continue to use the CPAP regularly every night (3) Lower extremity edema: Comment: He has chronic massive stasis edema of lower extremity. In the past has had ulcerations and has been [facility]. Currently no active ulcers noted. Code(s): R60.0 - Localized edema Category: Medical Plan: Told him that he needs to go back on diuretic therapy. He should be followed by his primary care physician and cardiology service more frequently. Coding Level of Care Code Est Pt Level 3 (93914) Diagnoses Morbid obesity E66.01 NORBERT (obstructive sleep apnea) G47.33 Lower extremity edema R60.0
--- OUTSIDE RECORDS SUMMARY | 2025-10-05 11:10 | XMS_ITS | Clinical Summary ---
Author Organization [facility] Address [address] [place] [phone] Phone Care Team Providers Care Integrity Specialist Name Role Phone Pcp, Unknown Primary Care [...] file Insurance MEDICARE PART A & B [facility] MEDEX SUPPLEMENT MEDICARE PART A & B [employer] MEDEX SUPPLEMENT MEDICARE PART A & B [employer] MEDEX SUPPLEMENT MEDICARE PART A & B [employer] MEDEX SUPPLEMENT MEDICARE PART A & B [employer] MEDEX SUPPLEMENT MEDICARE PART A & B [employer] MEDEX SUPPLEMENT MEDICARE PART A & B [employer] MEDEX SUPPLEMENT MEDICARE PART A & B [facility] MEDEX SUPPLEMENT MEDICARE PART A & B [employer] MEDEX SUPPLEMENT Care Teams Integrity Specialist Relationship Specialty Start Date End Date Pcp, Unknown PCP - General 08/23/21 Additional Source Comments The information contained in this document represents components of the legal health record. It is not the complete legal health record.[facility]
== END 2025-10-05 10:26 | disposition home or self-care (01) ==
LOC: HO.HPS 09:41
PROVIDERS: PCP Family Medicine; Visit Provider Internal Medicine
DX: E66.01 Morbid (severe) obesity due to excess calories (principal); G47.33 Obstructive sleep apnea (adult) (pediatric); R60.0 Localized edema
CPT/HCPCS: 99213

== ENCOUNTER → 2025-10-05 09:41 | Outpatient (BNVA) | payer MEDICARE, SELFPAY | PROVIDERS: PCP Family Medicine; Visit Provider Internal Medicine | DX: E66.01 Morbid (severe) obesity due to excess calories (principal); Z68.44 Body mass index [BMI] 60.0-69.9, adult; G47.33 Obstructive sleep apnea (adult) (pediatric); R60.0 Localized edema | CPT/HCPCS: 99212 ==